=== PATIENT | male | born 1940 | race Caucasian/White ===

== ENCOUNTER 2016-10-27 12:23 | Inpatient (IN) | payer MEDICARE, BC, OTHER ==
[2016-10-27] MEDS ORDERED: HYDROmorphone 1 MG/ML Syringe IM ONE (12:57)
--- NOTE | 2016-10-27 13:06 | EDM.PDOC ---
ED HPI GENERAL MEDICAL PROBLEM - General Chief Complaint: Upper Extremity Injury/Pain Stated Complaint: Right hand pain Time Seen by Provider: 10/27/16 12:45 Source of Information: Reports: Patient, RN Notes Reviewed History Limitations: Reports: No Limitations - History of Present Illness INITIAL COMMENTS - FREE TEXT/NARRATIVE: 75 year old male presents to the ED today with complaints of 2-3 day history of red, swollen, painful right hand. The symptoms came on suddenly after doing yard work. He denies fall or injury to the hand. He denies any skin lacerations or wounds. He denies fever or chills. He is reluctant to move his right shoulder or elbow due to the pain in the hand. He denies pain to the shoulder, elbow, or forearm. He is able to move his fingers but it's painful. No numbness or tingling. He has a history of gout and takes allopurinol. I asked if these feels like previous gout flares and he says "I don't know, that usually happens in my feet." The patient was initially evaluated in the clinic by Dr. Mcnamara and sent to the ED for further workup. I did not receive a direct report from Dr. Mcnamara but I'm assuming he was sent here due to the unexplained weakness of the right arm. The patient denies headache, slurred speech, facial droop, confusion, head injury, weakness in right leg, difficult walking. Right Hand Pain Score (Numeric/FACES): 9 - Related Data Allergies Allergy/AdvReac Type Severity Reaction Status Date / Time lisinopril Allergy Anaphylactic Verified 10/27/16 12:36 Shock Home Meds: Home Meds Aspirin [Halfprin] 81 mg PO DAILY 10/27/16 [History] Carvedilol [Coreg] 18.75 mg PO BID 10/27/16 [History] Fish Oil/[place]-3 Fatty Acids [Fish Oil 1,000 MG] 1,000 mg PO DAILY 10/27/16 [ History] Hydrochlorothiazide 25 mg PO DAILY 10/27/16 [History] L.acidoph,Paracasei, B.lactis [Probiotic] 1 each PO DAILY 10/27/16 [History] Losartan [Cozaar] 100 mg PO DAILY 10/27/16 [History] Multivitamin W-Minerals/Lutein [Vision Plus Lutein Vitamin] 1 each PO DAILY 10/08 [History] Potassium Chloride [Klor-Con M20] 20 meq PO BID 10/27/16 [History] Tamsulosin [Flomax] 0.4 mg PO DAILY 10/27/16 [History] amLODIPine [Norvasc] 10 mg PO DAILY 10/27/16 [History] Past Medical History HEENT History: Reports: Impaired Vision Other HEENT History: glasses Cardiovascular History: Reports: CAD, High Cholesterol, Hypertension Respiratory History: Reports: SOB Gastrointestinal History: Reports: Chronic Constipation Musculoskeletal History: Reports: Osteoarthritis Neurological History: Reports: Other (See Below) Other Neuro History: memory loss Hematologic History: Reports: Anemia, Blood Transfusion(s) - Infectious Disease History Infectious Disease History: Reports: Chicken Pox, Measles, Mumps - Past Surgical History Musculoskeletal Surgical History: Reports: Hip Replacement, Shoulder Replacement Social & Family History - Family History Family Medical History: Noncontributory - Tobacco Use Smoking Status *Q: Former Smoker Years of Tobacco use: 5 Used Tobacco, but Quit: Yes Month Tobacco Last Used: 1996 Second Hand Smoke Exposure: No - Caffeine Use Caffeine Use: Reports: Coffee - Alcohol Use Days Per Week of Alcohol Use: 0 - Recreational Drug Use Recreational Drug Use: No Review of Systems - Review of Systems Review Of Systems: See Below Constitutional: Reports: No Symptoms. Denies: Chills, Fever Respiratory: Reports: No Symptoms. Denies: Shortness of Breath Cardiovascular: Reports: No Symptoms. Denies: Chest Pain GI/Abdominal: Reports: No Symptoms. Denies: Abdominal Pain, Nausea, Vomiting Musculoskeletal: Reports: Hand Pain Neurological: Reports: Weakness. Denies: Confusion, Dizziness, Headache, Numbness, Tingling, Trouble Speaking, Difficulty Walking ED EXAM, GENERAL - Physical Exam Exam: See Below Exam Limited By: No Limitations General Appearance: Alert, WD/WN, No Apparent Distress Eye Exam: Bilateral Eye: EOMI, PERRL Neck: Normal Inspection, Supple, Non-Tender, Full Range of Motion Respiratory/Chest: No Respiratory Distress, Lungs Clear, Normal Breath Sounds Cardiovascular: Regular Rate, Rhythm Extremities: Other Course - Vital Signs Last Recorded V/S: Last Vital Signs Temp 97.5 F 10/27/16 12:33 Pulse 64 10/27/16 12:33 Resp 16 10/27/16 12:33 BP 125/73 10/27/16 12:33 Pulse Ox 94 L 10/27/16 12:33 - Orders/Labs/Meds Orders: Active Orders 24 hr Category Date Time Status Patient Status [ADT] Routine ADT 10/27/16 16:20 Active Peripheral IV Care [RC] . DIRECTED Care 10/27/16 15:41 Active Hand Comp Min 3V Rt [CR] Stat Exams 10/27/16 12:52 Taken Sodium Chloride 0.9% [Saline Flush] Med 10/27/16 15:38 Active 10 ml FLUSH ASDIRECTED PRN Peripheral IV Insertion Adult [OM.PC] Stat Oth 10/27/16 15:38 Ordered Medication Orders Albuterol/Ipratropium (Duoneb 3.0-0.5 Mg/3 Ml) 3 ml NEB Q4H PRN PRN Reason: Shortness Of Breath/wheezing Amlodipine Besylate (Norvasc) 10 mg PO DAILY [facility] Aspirin (Halfprin) 81 mg PO DAILY [facility] Bisacodyl (Dulcolax) 5 mg PO DAILY PRN PRN Reason: Constipation Carvedilol (Coreg) 18.75 mg PO BID [facility] Docusate Sodium (Colace) 100 mg PO BID PRN PRN Reason: Constipation Famotidine (Pepcid) 20 mg IVPUSH BID [facility] Fish Oil (Fish Oil) 1 gm PO DAILY [facility] Hydralazine HCl (Apresoline) 20 mg IVPUSH Q4H PRN PRN Reason: Hypertension Hydromorphone HCl (Dilaudid) 0.25 mg IVPUSH Q2H PRN PRN Reason: Pain (severe 7-10) Promethazine HCl 12.5 mg/ (Sodium Chloride) 50.5 mls @ 100 mls/hr IV Q6H PRN PRN Reason: Nausea/Vomiting Sodium Chloride (Normal Saline) 1,000 mls @ 100 mls/hr IV ASDIRECTED [facility] Sodium Chloride (Normal Saline) 250 mls @ 999 mls/hr IV .BOLUS [facility] Ceftriaxone Sodium 2 gm/ (Sodium Chloride) 100 mls @ 200 mls/hr IV Q24H [facility] Indomethacin (Indocin) 25 mg PO TIDMEALS [facility] Lorazepam (Ativan) 0.5 mg IV Q6H PRN PRN Reason: Anxiety Losartan Potassium (Cozaar) 100 mg PO DAILY [facility] Magnesium Sulfate (Pharmacy To Dose - Magnesium Replacement) 1 dose .XX ASDIRECTED [facility] Metoprolol Tartrate (Lopressor) 5 mg IVPUSH Q4H PRN PRN Reason: Tachycardia Non-Formulary Medication (L.Acidoph,Paracasei, B.Lactis [Probiotic]) 1 each PO DAILY [facility] Non-Formulary Medication (Multivitamin W-Minerals/Lutein [Vision Plus Lutein Vitamin]) 1 each PO DAILY [facility] Ondansetron HCl (Zofran) 4 mg IV Q6H PRN PRN Reason: Nausea/Vomiting Polyethylene Glycol (Miralax) 17 gm PO DAILY PRN PRN Reason: Constipation Potassium Chloride (Pharmacy To Dose - Potassium Replacement) 1 dose .XX ASDIRECTED [facility] Potassium Chloride (Klor-Con M20) 20 meq PO BID [facility] Prednisone (Prednisone) 40 mg PO WITHBREAKFAST [facility] Senna/Docusate Sodium (Senna Plus) 1 tab PO BID PRN PRN Reason: Constipation Sodium Chloride (Saline Flush) 10 ml FLUSH ASDIRECTED PRN PRN Reason: Keep Vein Open Tamsulosin HCl (Flomax) 0.4 mg PO DAILY [facility] Temazepam (Restoril) 15 mg PO BEDTIME PRN PRN Reason: Sleep Labs: Laboratory Tests 10/27/16 10/27/16 10/27/16 Range/Units 13:25 13:25 13:25 WBC 9.91 H (4.23-9.07) K/mm3 RBC 4.00 L (4.63-6.08) M/mm3 Hgb 12.5 L (13.7-17.5) gm/L Hct 36.1 L (40.1-51.0) % MCV 90.3 (79.0-92.2) fl MCH 31.3 (25.7-32.2) pg MCHC 34.6 (32.2-35.5) g/dl RDW Std Deviation 40.9 (35.1-43.9) fL Plt Count 172 (163-337) K/mm3 MPV 9.8 (9.4-12.3) fl Neut % (Auto) 71.7 H (34.0-67.9) % Lymph % (Auto) 10.3 L (21.8-53.1) % [place] % (Auto) 17.3 H (5.3-12.2) % Eos % (Auto) 0.2 L (0.8-7.0) Baso % (Auto) 0.1 (0.1-1.2) % Neut # (Auto) 7.11 H (1.78-5.38) K/mm3 Lymph # (Auto) 1.02 L (1.32-3.57) K/mm3 [place] # (Auto) 1.71 H (0.30-0.82) K/mm3 Eos # (Auto) 0.02 L (0.04-0.54) K/mm3 Baso # (Auto) 0.01 (0.01-0.08) K/mm3 Manual Slide Review Normal smear ESR 106 H (0-15) mm/hr Sodium 139 (136-145) mEq/L Potassium 3.1 L (3.5-5.1) mEq/L Chloride 103 (98-107) mEq/L Carbon Dioxide 24 (21-32) mEq/L Anion Gap 15.1 H (5-15) BUN 34 H (7-18) mg/dL Creatinine 1.8 H (0.7-1.3) mg/dL Est Cr Clr Drug Dosing 38.32 mL/min Estimated GFR (MDRD) 37 (>60) mL/min BUN/Creatinine Ratio 18.9 H (14-18) Glucose 139 H (83-115) mg/dL Uric Acid (3.5-7.2) mg/dL Calcium 9.1 (8.5-10.1) mg/dL Total Bilirubin 1.1 H (0.2-1.0) mg/dL AST 12 L (15-37) U/L ALT 14 L (16-63) U/L Alkaline Phosphatase 51 (46-116) U/L C-Reactive Protein 14.4 H* (<1.0) mg/dL Total Protein 7.5 (6.4-8.2) g/dl Albumin 3.2 L (3.4-5.0) g/dl Globulin 4.3 gm/dL Albumin/Globulin Ratio 0.7 L (1-2) 10/27/16 Range/Units 13:25 WBC (4.23-9.07) K/mm3 RBC (4.63-6.08) M/mm3 Hgb (13.7-17.5) gm/L Hct (40.1-51.0) % MCV (79.0-92.2) fl MCH (25.7-32.2) pg MCHC (32.2-35.5) g/dl RDW Std Deviation (35.1-43.9) fL Plt Count (163-337) K/mm3 MPV (9.4-12.3) fl Neut % (Auto) (34.0-67.9) % Lymph % (Auto) (21.8-53.1) % [place] % (Auto) (5.3-12.2) % Eos % (Auto) (0.8-7.0) Baso % (Auto) (0.1-1.2) % Neut # (Auto) (1.78-5.38) K/mm3 Lymph # (Auto) (1.32-3.57) K/mm3 [place] # (Auto) (0.30-0.82) K/mm3 Eos # (Auto) (0.04-0.54) K/mm3 Baso # (Auto) (0.01-0.08) K/mm3 Manual Slide Review ESR (0-15) mm/hr Sodium (136-145) mEq/L Potassium (3.5-5.1) mEq/L Chloride (98-107) mEq/L Carbon Dioxide (21-32) mEq/L Anion Gap (5-15) BUN (7-18) mg/dL Creatinine (0.7-1.3) mg/dL Est Cr Clr Drug Dosing mL/min Estimated GFR (MDRD) (>60) mL/min BUN/Creatinine Ratio (14-18) Glucose (83-115) mg/dL Uric Acid 7.5 H (3.5-7.2) mg/dL Calcium (8.5-10.1) mg/dL Total Bilirubin (0.2-1.0) mg/dL AST (15-37) U/L ALT (16-63) U/L Alkaline Phosphatase (46-116) U/L C-Reactive Protein (<1.0) mg/dL Total Protein (6.4-8.2) g/dl Albumin (3.4-5.0) g/dl Globulin gm/dL Albumin/Globulin Ratio (1-2) Meds: Medications Generic Name Dose Route Start Last Admin Trade Name Freq PRN Reason Stop Dose Admin Albuterol/Ipratropium 3 ml 10/27/16 17:16 Duoneb 3.0-0.5 Mg/3 Ml NEB Q4H PRN Shortness Of Breath/wheezing Amlodipine Besylate 10 mg 10/28/16 09:00 Norvasc PO DAILY [facility] Aspirin 81 mg 10/28/16 09:00 Halfprin PO DAILY [facility] Bisacodyl 5 mg 10/27/16 17:16 Dulcolax PO DAILY PRN Constipation Carvedilol 18.75 mg 10/27/16 21:00 Coreg PO BID [facility] Docusate Sodium 100 mg 10/27/16 17:16 Colace PO BID PRN Constipation Famotidine 20 mg 10/27/16 21:00 Pepcid IVPUSH BID [facility] Fish Oil 1 gm 10/28/16 09:00 Fish Oil PO DAILY [facility] Hydralazine HCl 20 mg 10/27/16 17:26 Apresoline IVPUSH Q4H PRN Hypertension Hydromorphone HCl 0.25 mg 10/27/16 17:16 Dilaudid IVPUSH Q2H PRN Pain (severe 7-10) Promethazine HCl 12.5 mg/ 50.5 mls @ 100 mls/hr 10/27/16 17:16 Sodium Chloride IV Q6H PRN Nausea/Vomiting Sodium Chloride 1,000 mls @ 100 mls/hr 10/27/16 17:30 Normal Saline IV ASDIRECTED [facility] Sodium Chloride 250 mls @ 999 mls/hr 10/27/16 17:30 Normal Saline IV .BOLUS [facility] Ceftriaxone Sodium 2 gm/ 100 mls @ 200 mls/hr 10/28/16 14:00 Sodium Chloride IV Q24H [facility] Indomethacin 25 mg 10/28/16 07:00 Indocin PO TIDMEALS [facility] Lorazepam 0.5 mg 10/27/16 17:16 Ativan IV Q6H PRN Anxiety Losartan Potassium 100 mg 10/28/16 09:00 Cozaar PO DAILY [facility] Magnesium Sulfate 1 dose 10/27/16 17:30 Pharmacy To Dose - Magnesium Replacement .XX ASDIRECTED [facility] Metoprolol Tartrate 5 mg 10/27/16 17:26 Lopressor IVPUSH Q4H PRN Tachycardia Non-Formulary Medication 1 each 10/28/16 09:00 L.Acidoph,Paracasei, B.Lactis [Probiotic] PO DAILY [facility] Non-Formulary Medication 1 each 10/28/16 09:00 Multivitamin W-Minerals/Lutein [Vision Plus Lutein Vitamin] PO DAILY [facility] Ondansetron HCl 4 mg 10/27/16 17:16 Zofran IV Q6H PRN Nausea/Vomiting Polyethylene Glycol 17 gm 10/27/16 17:16 Miralax PO DAILY PRN Constipation Potassium Chloride 1 dose 10/27/16 17:30 Pharmacy To Dose - Potassium Replacement .XX ASDIRECTED [facility] Potassium Chloride 20 meq 10/27/16 21:00 Klor-Con M20 PO BID [facility] Prednisone 40 mg 10/28/16 07:00 Prednisone PO WITHBREAKFAST [facility] Senna/Docusate Sodium 1 tab 10/27/16 17:16 Senna Plus PO BID PRN Constipation Sodium Chloride 10 ml 10/27/16 15:38 Saline Flush FLUSH ASDIRECTED PRN Keep Vein Open Tamsulosin HCl 0.4 mg 10/28/16 09:00 Flomax PO DAILY [facility] Temazepam 15 mg 10/27/16 17:16 Restoril PO BEDTIME PRN Sleep Discontinued Medications Generic Name Dose Route Start Last Admin Trade Name Freq PRN Reason Stop Dose Admin Ceftriaxone Sodium 1 gm 10/27/16 14:21 10/27/16 14:30 Rocephin IM 10/27/16 14:22 1 gm ONETIME ONE Administration Colchicine 1.2 mg 10/27/16 17:10 Colcrys PO 10/27/16 17:11 ONETIME ONE Hydromorphone HCl 0.5 mg 10/27/16 12:57 10/27/16 13:30 Dilaudid IM 10/27/16 12:58 0.5 mg ONETIME ONE Administration Potassium Chloride 40 meq 10/27/16 17:28 Klor-Con M20 PO 10/27/16 17:29 ONETIME ONE - Re-Assessments/Exams Free Text/Narrative Re-Assessment/Exam: On initial exam, the patient had significant pain to the wrist/hand area. The area was hot and red. He was reluctant to move his right arm. There is weakness to the right arm but the patient attributes this to pain. He has no other neurologic deficits on a thorough neuro exam. His pain was treated with Dilaudid. I then repeated his neuro exam. Had improved movement of the right shoulder and elbow after pain medication, making central neurologic etiology unlikely. Therefore, CT of head is not indicated at this time. X-ray of right hand is negative for bony abnormality. CBC reveals a mildly elevated WBC. CRP is 14 and ESR 106. Differential diagnosis includes gout, cellulitis, transient synovitis. He has no skin wounds to suggest cellulitis. The patient has a history of gout. Current medications were verified with his pharmacy and he is no longer taking Allopurinol. Discussed with Dr. Stovall who recommends consulting Dr. Alvarez. I phoned Dr. Alvarez who recommended Indocin 75mg PO ER QD, Rocephin 1 gram now , Keflex 500mg q6h starting tomorrow morning, volar splint, warm soaks 3 times a day, and elevation. He would like to see the patient in f/u on Monday. After discussing this with the patient, I have concerns that the patient will fail outpatient treatment. He has no family or friends available to help. He will be unable to remove and reapply the splint by himself. He has severe pain that will likely require IV pain medication. I also feel he would benefit from IV antibiotics and close monitoring for the next 2-3 days. I discussed the case with our caser up who also agrees. I spoke to Dr. Strong who has accepted care of the patient for inpatient admission. I called and updated Dr. Alvarez who has agreed to see the patient in consult. Departure - Departure Time of Disposition: 16:20 Disposition: Admitted As Inpatient 65 Condition: Good Clinical Impression: Joint inflammation of right hand and wrist - Discharge Information - My Orders Last 24 Hours: My Active Orders 10/27/16 12:52 Hand Comp Min 3V Rt [CR] Stat 10/27/16 15:38 Sodium Chloride 0.9% [Saline Flush] 10 ml FLUSH ASDIRECTED PRN Peripheral IV Insertion Adult [OM.PC] Stat 10/27/16 15:41 Peripheral IV Care [RC] . DIRECTED 10/27/16 16:20 Patient Status [ADT] Routine - Assessment/Plan Last 24 Hours: My Active Orders 10/27/16 12:52 Hand Comp Min 3V Rt [CR] Stat 10/27/16 15:38 Sodium Chloride 0.9% [Saline Flush] 10 ml FLUSH ASDIRECTED PRN Peripheral IV Insertion Adult [OM.PC] Stat 10/27/16 15:41 Peripheral IV Care [RC] . DIRECTED 10/27/16 16:20 Patient Status [ADT] Routine
[2016-10-27] MEDS ORDERED: cefTRIAXone 1 GM Vial IM ONE (14:21)
[2016-10-27] MEDS ORDERED: Sodium Chloride 0.9% 10 ML Syringe FLUSH PRN (15:38)
--- NOTE | 2016-10-27 17:04 | PCM.HP ---
H&P History of Present Illness - General Date of Service: 10/27/16 Admit Problem/Dx: Admission Diagnosis/Problem Admission Diagnosis/Problem Cellulitis Source of Information: Patient, Old Records, Provider, RN Notes Reviewed History Limitations: Reports: Physical Impairment - History of Present Illness Initial Comments - Free Text/Narative: This is a 75-year-old white male with past medical history of impaired vision, hyperlipidemia, hypertension, coronary artery disease, chronic shortness of breath, chronic constipation, memory loss and anemia who presents to the emergency department with complaints of 2-3 day history of red, swollen and painful right hand. His symptoms started after doing some yard work. He denies any trauma or injury. He denies any systemic symptoms. His range of motion is limited due to pain with movement. He denies any numbness or tingling but admits to some weakness. Patient carries a history of gout. He used to be on allopurinol but is no longer on maintenance medication. Patient denies any other associated complaints. His initial workup in the emergency department shows a CBC remarkable for WBC of 9.91, RBC of 4, hemoglobin 12.5, hematocrit of 36.1, neutrophils counts of 7.11, and ESR of 106. His chemistry is remarkable for potassium of 3.1. His chest x-ray shows arthritic changes. Patient is being admitted for acute gout and SSTI. He is full code. Right Hand Pain Score (Numeric/FACES): 9 - Related Data Allergies/Adverse Reactions: Allergies Allergy/AdvReac Type Severity Reaction Status Date / Time lisinopril Allergy Anaphylactic Verified 10/27/16 12:36 Shock Home Medications: Home Meds Aspirin [Halfprin] 81 mg PO DAILY 10/27/16 [History] Carvedilol [Coreg] 18.75 mg PO BID 10/27/16 [History] Fish Oil/[place]-3 Fatty Acids [Fish Oil 1,000 MG] 1,000 mg PO DAILY 10/27/16 [ History] Hydrochlorothiazide 25 mg PO DAILY 10/27/16 [History] L.acidoph,Paracasei, B.lactis [Probiotic] 1 each PO DAILY 10/27/16 [History] Losartan [Cozaar] 100 mg PO DAILY 10/27/16 [History] Multivitamin W-Minerals/Lutein [Vision Plus Lutein Vitamin] 1 each PO DAILY 10/08 [History] Potassium Chloride [Klor-Con M20] 20 meq PO BID 10/27/16 [History] Tamsulosin [Flomax] 0.4 mg PO DAILY 10/27/16 [History] amLODIPine [Norvasc] 10 mg PO DAILY 10/27/16 [History] Past Medical History HEENT History: Reports: Impaired Vision Other HEENT History: glasses Cardiovascular History: Reports: CAD, High Cholesterol, Hypertension Respiratory History: Reports: SOB Gastrointestinal History: Reports: Chronic Constipation Musculoskeletal History: Reports: Osteoarthritis Neurological History: Reports: Other (See Below) Other Neuro History: memory loss Hematologic History: Reports: Anemia, Blood Transfusion(s) - Infectious Disease History Infectious Disease History: Reports: Chicken Pox, Measles, Mumps - Past Surgical History Musculoskeletal Surgical History: Reports: Hip Replacement, Shoulder Replacement Social & Family History - Family History Family Medical History: Noncontributory - Tobacco Use Smoking Status *Q: Former Smoker Years of Tobacco use: 5 Used Tobacco, but Quit: Yes Month Tobacco Last Used: 1996 Second Hand Smoke Exposure: No - Caffeine Use Caffeine Use: Reports: Coffee - Alcohol Use Days Per Week of Alcohol Use: 0 - Recreational Drug Use Recreational Drug Use: No H&P Review of Systems - Review of Systems: Review Of Systems: See Below General: Reports: Weakness. Denies: Fever, Chills, Malaise HEENT: Reports: No Symptoms Pulmonary: Denies: Shortness of Breath Cardiovascular: Denies: Chest Pain Gastrointestinal: Denies: Abdominal Pain, Diarrhea, Nausea, Vomiting Genitourinary: Reports: No Symptoms Musculoskeletal: Reports: Hand Pain, Joint Pain, Other (Edema ) Skin: Reports: Erythema, Change in Color Psychiatric: Denies: Depression, Anxiety, Agitation, Hallucinations Neurological: Reports: Weakness. Denies: Confusion, Difficulty Walking, Gait Disturbance Hematologic/Lymphatic: Reports: No Symptoms Immunologic: Reports: No Symptoms Exam - Exam Exam: See Below - Vital Signs Vital Signs: Last Vital Signs Temp 36.4 C 10/27/16 12:33 Pulse 64 10/27/16 12:33 Resp 16 10/27/16 12:33 BP 125/73 10/27/16 12:33 Pulse Ox 94 L 10/27/16 12:33 Weight: 96.162 kg - Exam General: Alert, Oriented, Cooperative. No: Mild Distress HEENT: Conjunctiva Clear, EACs Clear, EOMI, Hearing Intact, Mucosa Moist & [place] , Nares Patent, Normal Nasal Septum, Posterior Pharynx Clear, Pupils Equal, Pupils Reactive Neck: Supple, Trachea Midline, +2 Carotid Pulse wo Bruit Lungs: Clear to Auscultation, Normal Respiratory Effort Cardiovascular: Regular Rate, Regular Rhythm Abdomen: Normal Bowel Sounds, Soft. No: Organomegaly, Tenderness (Male) Exam: Deferred Rectal (Males) Exam: Deferred Back Exam: Normal Inspection, Decreased Range of Motion Extremities: Normal Inspection, Normal Pulses, Edema (right hand: mild erythema) , Increased Warmth (right hand) Skin: Warm, Dry, Intact. No: Wound Skin Alteration Location (Drawings Not To Scale): 1 - mild erythema, mild edema, and pain on touch 2 - mild erythema, mild edema, and pain on touch Neuro Extensive - Mental Status: Oriented x3, Normal Cognition, Memory Intact Neuro Extensive - Motor, Sensory, Reflexes: CN II-XII Intact, Normal Gait Psychiatric: Alert, Normal Affect, Normal Mood - Patient Data Result Diagrams: 10/27/16 13:25 10/27/16 13:25 *Q Meaningful Use (ADM) - VTE *Q VTE Criteria *Q: - Stroke *Q Stroke Criteria *Q: - AMI *Q AMI Criteria *Q: Problem List Initiated/Reviewed/Updated: Yes Orders Last 24hrs: Medication Orders Sodium Chloride (Saline Flush) 10 ml FLUSH ASDIRECTED PRN PRN Reason: Keep Vein Open Assessment/Plan Comment:: Assessment/Plan: Acute: Gout Attack: Right Hand - Had hx/o Gout he is not on maintenance medication - Risk factor: HCTZ (competes with Uric Acid for excretion) - Uric Acid level 7.5 - Indomethacin 25 mg po TID and Prednisone 40 mg po daily for 3 days then taper dose for 2 weeks - Famotidine 20 mg IVP BID - Dietary consult for gout diet SSTI/Cellulitis? - I felt it was more inflammatory in nature than infectious - Right Hand: joint and wrist - Received IV Rocephin in ED - Continue IV Abx - Ortho consulted in ED: Dr. Alvarez recommends the followin) Cephalexin (Keflex) 500mg every 6 hours starts tomorrow morning, 2) Indocin 75mg once a day for the next 7 days, start today, 3) Tramadol 1 tab every 6 hours as needed for pain, 3) Warm soapy water soaks 3 times a day for 45 minutes at a time, 4) Wear splint at all times, only remove splint for warm soaks then immediately reapply, 5) Elevate as much as possible to help with the swelling. Leukocytosis - WBC 9.91, ESR 106, CRP 14.4 - 2/2 above Hypokalemia - K 3.1 - Will replete and monitor Chronic: HTN HLD CAD SOB CKD Stage 3, At baseline with current GFR level Constipation OA Memory Loss Anemia Gout Plan: Admit to Med-Surg Routine AM Labs Ortho consult Resume Home Meds PT/OT consult Gout Diet SW/CM for d/c planning Code status: 1
[2016-10-27] MEDS ORDERED: Colchicine 0.6 MG Tab PO ONE (17:10)
[2016-10-27] MEDS ORDERED: Promethazine 12.5 MG in Sodium Chloride 0.9% 50 ML IV PRN (17:16)
[2016-10-27] MEDS ORDERED: Albuterol/Ipratropium 3.0-0.5 MG/3 ML Neb Soln NEB PRN (17:16)
[2016-10-27] MEDS ORDERED: Ondansetron 4 MG/2 ML SDV IV PRN (17:16)
[2016-10-27] MEDS ORDERED: LORazepam 2 MG/ML MDV IV PRN (17:16)
[2016-10-27] MEDS ORDERED: Docusate Sodium 100 MG Cap PO PRN (17:16)
[2016-10-27] MEDS ORDERED: Bisacodyl 5 MG Tab PO PRN (17:16)
[2016-10-27] MEDS ORDERED: Metoprolol Tartrate 5 MG/5 ML SDV IVPUSH PRN (17:26)
[2016-10-27] MEDS ORDERED: hydrALAZINE 20 MG/ML SDV IVPUSH PRN (17:26)
[2016-10-27] MEDS ORDERED: Potassium Chloride 20 MEQ Tab.ER PO ONE (17:28)
[2016-10-27] MEDS ORDERED: Sodium Chloride 0.9% 250 ML IV SCH (17:30)
[2016-10-27] MEDS: Sodium Chloride 0.9% 1,000 ML IV SCH (18:25)
[2016-10-27] MEDS: HYDROmorphone 1 MG/ML Syringe IVPUSH PRN ×2 (18:27→23:28)
[2016-10-27] MEDS: Famotidine 20 MG/2 ML SDV IVPUSH SCH (20:51)
[2016-10-27] MEDS: Carvedilol 6.25 MG Tab PO SCH (20:51)
[2016-10-27] MEDS: Potassium Chloride 20 MEQ Tab.ER PO SCH (20:52)
[2016-10-27] MEDS: traMADol 50 MG Tab PO PRN (20:52)
[2016-10-27] MEDS: Polyethylene Glycol 3350 Powder 17 GM Packet PO PRN (21:00)
[2016-10-27] MEDS ORDERED: Pneumococcal Polyvalent-23 Vaccine 0.5 ML SDV IM ONE (21:05)
[2016-10-28] MEDS: Sodium Chloride 0.9% 1,000 ML IV SCH ×2 (02:10→17:52)
[2016-10-28] MEDS: traMADol 50 MG Tab PO PRN (04:13)
[2016-10-28] MEDS: Indomethacin 25 MG Cap PO SCH ×2 (06:33→11:12)
--- NOTE | 2016-10-28 07:02 | CR ---
Right hand: Four views of the right hand were obtained. Comparison: No previous hand exam. Mild joint space narrowing is seen within the third MCP joint. Mild degenerative change is scattered within the DIP joints. Slight chondrocalcinosis is noted within the triangular fibrocartilage. No acute fracture or other bony abnormality is seen. Mild vascular calcification is identified within the wrist. Impression: 1. Mild degenerative change, minimal chondrocalcinosis, mild vascular calcification. 2. Nothing acute is appreciated on right hand study. Diagnostic code #3
[2016-10-28] MEDS ORDERED: predniSONE 20 MG Tab PO SCH (08:00)
[2016-10-28] MEDS: Aspirin 81 MG Tab.EC PO SCH (08:01)
[2016-10-28] MEDS: Fish Oil/Omega-3 Fatty Acids 1 Gm Cap PO SCH (08:01)
[2016-10-28] MEDS: amLODIPine 10 MG Tab PO SCH (08:01)
[2016-10-28] MEDS: Tamsulosin 0.4 MG Cap.ER PO SCH (08:02)
[2016-10-28] MEDS: Carvedilol 6.25 MG Tab PO SCH ×2 (08:02→21:16)
[2016-10-28] MEDS: Potassium Chloride 20 MEQ Tab.ER PO SCH ×4 (08:02→21:15)
[2016-10-28] MEDS: Multivitamins with Minerals/Folic Acid/Lutein/Zeaxanth Tab PO SCH (08:02)
[2016-10-28] MEDS: Saccharomyces Boulardii (Probiotic) 250 MG Cap PO SCH (08:02)
[2016-10-28] MEDS ORDERED: Magnesium Oxide 400 MG Tab PO ONE (08:30)
[2016-10-28] MEDS ORDERED: Losartan 100 MG Tab PO SCH (09:00)
[2016-10-28] MEDS: Famotidine 20 MG/2 ML SDV IVPUSH SCH ×2 (11:35→21:19)
[2016-10-28] MEDS: methylPREDNISolone Sodium Succinate 125 MG/2 ML SDV IVPUSH SCH (11:36)
--- NOTE | 2016-10-28 11:38 | PCM.PN ---
- General Info Date of Service: 10/28/16 Functional Status: Reports: pain controlled, tolerating diet, ambulating, urinating - Review of Systems General: Reports: No Symptoms HEENT: Reports: no symptoms Pulmonary: Reports: no symptoms Cardiovascular: Reports: No Symptoms Gastrointestinal: Reports: No symptoms Genitourinary: Reports: no symptoms Musculoskeletal: Reports: hand pain (right) Skin: Reports: no symptoms Neurological: Reports: No Symptoms Psychiatric: Reports: no symptoms - Patient Data Vitals - most recent: Last Vital Signs Temp 36.2 C 10/28/16 07:44 Pulse 55 L 10/28/16 08:02 Resp 16 10/28/16 07:44 BP 139/78 10/28/16 08:02 Pulse Ox 93 L 10/28/16 07:44 Weight - most recent: 95.572 kg I&O - last 24 hours: Intake & Output 10/27/16 10/28/16 10/28/16 22:59 06:59 14:59 Intake Total 420 1706 Output Total 400 400 Balance 20 1306 Lab Results last 24 hrs: Laboratory Results - last 24 hr 10/28/16 10/28/16 10/28/16 Range/Units 05:40 05:40 05:40 WBC 7.73 (4.23-9.07) K/mm3 RBC 3.57 L (4.63-6.08) M/mm3 Hgb 11.1 L (13.7-17.5) gm/L Hct 32.5 L (40.1-51.0) % MCV 91.0 (79.0-92.2) fl MCH 31.1 (25.7-32.2) pg MCHC 34.2 (32.2-35.5) g/dl RDW Std Deviation 40.1 (35.1-43.9) fL Plt Count 164 (163-337) K/mm3 MPV 9.9 (9.4-12.3) fl Neut % (Auto) 65.7 (34.0-67.9) % Lymph % (Auto) 16.2 L (21.8-53.1) % Grady % (Auto) 17.1 H (5.3-12.2) % Eos % (Auto) 0.5 L (0.8-7.0) Baso % (Auto) 0.1 (0.1-1.2) % Neut # (Auto) 5.08 (1.78-5.38) K/mm3 Lymph # (Auto) 1.25 L (1.32-3.57) K/mm3 Grady # (Auto) 1.32 H (0.30-0.82) K/mm3 Eos # (Auto) 0.04 (0.04-0.54) K/mm3 Baso # (Auto) 0.01 (0.01-0.08) K/mm3 Manual Slide Review Normal smear ESR 98 H (0-15) mm/hr Sodium 137 (136-145) mEq/L Potassium 3.4 L (3.5-5.1) mEq/L Chloride 104 (98-107) mEq/L Carbon Dioxide 24 (21-32) mEq/L Anion Gap 12.4 (5-15) BUN 29 H (7-18) mg/dL Creatinine 1.3 (0.7-1.3) mg/dL Est Cr Clr Drug Dosing 54.63 mL/min Estimated GFR (MDRD) 54 (>60) mL/min BUN/Creatinine Ratio 22.3 H (14-18) Glucose 126 H (83-115) mg/dL Uric Acid 6.8 (3.5-7.2) mg/dL Calcium 8.3 L (8.5-10.1) mg/dL Magnesium 1.7 L (1.8-2.4) mg/dl C-Reactive Protein 15.3 H* (<1.0) mg/dL Med Orders - Current: Current Medications Albuterol/Ipratropium (Duoneb 3.0-0.5 Mg/3 Ml) 3 ml NEB Q4H PRN PRN Reason: Shortness Of Breath/wheezing Amlodipine Besylate (Norvasc) 10 mg PO DAILY [facility] Last Admin: 10/28/16 08:01 Dose: 10 mg Aspirin (Halfprin) 81 mg PO DAILY [facility] Last Admin: 10/28/16 08:01 Dose: 81 mg Bisacodyl (Dulcolax) 5 mg PO DAILY PRN PRN Reason: Constipation Carvedilol (Coreg) 18.75 mg PO BID [facility] Last Admin: 10/28/16 08:02 Dose: 18.75 mg Docusate Sodium (Colace) 100 mg PO BID PRN PRN Reason: Constipation Last Admin: 10/27/16 18:26 Dose: 100 mg Famotidine (Pepcid) 20 mg IVPUSH BID [facility] Last Admin: 10/27/16 20:51 Dose: 20 mg Fish Oil (Fish Oil) 1 gm PO DAILY [facility] Last Admin: 10/28/16 08:01 Dose: 1 gm Hydralazine HCl (Apresoline) 20 mg IVPUSH Q4H PRN PRN Reason: Hypertension Hydromorphone HCl (Dilaudid) 0.25 mg IVPUSH Q2H PRN PRN Reason: Pain (severe 7-10) Last Admin: 10/27/16 23:28 Dose: 0.25 mg Promethazine HCl 12.5 mg/ (Sodium Chloride) 50.5 mls @ 100 mls/hr IV Q6H PRN PRN Reason: Nausea/Vomiting Sodium Chloride (Normal Saline) 1,000 mls @ 100 mls/hr IV ASDIRECTED [facility] Last Admin: 10/28/16 02:10 Dose: 100 mls/hr Ceftriaxone Sodium 2 gm/ (Sodium Chloride) 100 mls @ 200 mls/hr IV Q24H [facility] Lorazepam (Ativan) 0.5 mg IV Q6H PRN PRN Reason: Anxiety Losartan Potassium (Cozaar) 100 mg PO DAILY [facility] Last Admin: 10/28/16 08:01 Dose: 100 mg Magnesium Sulfate (Pharmacy To Dose - Magnesium Replacement) 1 dose .XX ASDIRECTED [facility] Methylprednisolone Sodium Succinate (Solu-Medrol) 80 mg IVPUSH Q12H [facility] Stop: 10/28/16 23:31 Metoprolol Tartrate (Lopressor) 5 mg IVPUSH Q4H PRN PRN Reason: Tachycardia Ondansetron HCl (Zofran) 4 mg IV Q6H PRN PRN Reason: Nausea/Vomiting Polyethylene Glycol (Miralax) 17 gm PO DAILY PRN PRN Reason: Constipation Last Admin: 10/27/16 21:00 Dose: 17 gm Potassium Chloride (Pharmacy To Dose - Potassium Replacement) 1 dose .XX ASDIRECTED [facility] Potassium Chloride (Klor-Con M20) 20 meq PO BID [facility] Last Admin: 10/28/16 08:02 Dose: 20 meq Potassium Chloride (Klor-Con M20) 40 meq PO Q4H [facility] Stop: 10/28/16 12:16 Last Admin: 10/28/16 11:13 Dose: 40 meq Prednisone (Prednisone) 30 mg PO WITHBREAKFAST [facility] Stop: 11/03/16 07:01 Prednisone (Prednisone) 20 mg PO WITHBREAKFAST [facility] Stop: 11/06/16 07:01 Prednisone (Prednisone) 10 mg PO WITHBREAKFAST [facility] Stop: 11/09/16 07:01 Prednisone (Prednisone) 40 mg PO WITHBREAKFAST [facility] Stop: 10/31/16 07:01 Saccharomyces Boulardii (Florastor) 250 mg PO DAILY [facility] Last Admin: 10/28/16 08:02 Dose: 250 mg Senna/Docusate Sodium (Senna Plus) 1 tab PO BID PRN PRN Reason: Constipation Sodium Chloride (Saline Flush) 10 ml FLUSH ASDIRECTED PRN PRN Reason: Keep Vein Open Tamsulosin HCl (Flomax) 0.4 mg PO DAILY [facility] Last Admin: 10/28/16 08:02 Dose: 0.4 mg Temazepam (Restoril) 15 mg PO BEDTIME PRN PRN Reason: Sleep Tramadol HCl (Ultram) 100 mg PO Q6H PRN PRN Reason: Pain Last Admin: 10/28/16 04:13 Dose: 100 mg Vit A/Vit C/Vit E/Selen/Cu/Zn/Lutei (Icaps Mv) 1 tab PO DAILY [facility] Last Admin: 10/28/16 08:02 Dose: 1 tab Discontinued Medications Ceftriaxone Sodium (Rocephin) 1 gm IM ONETIME ONE Stop: 10/27/16 14:22 Last Admin: 10/27/16 14:30 Dose: 1 gm Colchicine (Colcrys) 1.2 mg PO ONETIME ONE Stop: 10/27/16 17:11 Last Admin: 10/27/16 20:12 Dose: Not Given Hydromorphone HCl (Dilaudid) 0.5 mg IM ONETIME ONE Stop: 10/27/16 12:58 Last Admin: 10/27/16 13:30 Dose: 0.5 mg Sodium Chloride (Normal Saline) 250 mls @ 999 mls/hr IV .BOLUS [facility] Last Admin: 10/28/16 01:07 Dose: 999 mls/hr Indomethacin (Indocin) 25 mg PO TIDMEALS [facility] Stop: 11/03/16 17:01 Last Admin: 10/28/16 11:12 Dose: 25 mg Magnesium Oxide (Magnesium Oxide) 400 mg PO ONETIME ONE Stop: 10/28/16 08:31 Last Admin: 10/28/16 11:13 Dose: 400 mg Pneumococcal Polyvalent Vaccine (Pneumovax 23) 0.5 ml IM .ONCE ONE Stop: 10/27/16 21:06 Potassium Chloride (Klor-Con M20) 40 meq PO ONETIME ONE Stop: 10/27/16 17:29 Last Admin: 10/27/16 18:26 Dose: 40 meq Prednisone (Prednisone) 40 mg PO WITHBREAKFAST [facility] Stop: 10/30/16 08:01 - Exam Quality Assessment: supplemental oxygen, DVT prophylaxis General: alert, oriented, cooperative, no acute distress HEENT: Pupils equal, Pupils reactive, EOMI, Mucous membr. moist/pink Neck: supple, trachea midline, no JVD Lungs: Clear to auscultation, Decreased breath sounds Cardiovascular: Regular Rate, Regular Rhythm Abdomen: bowel sounds present, soft, no tenderness, no distension (Male) Exam: Deferred Back Exam: Normal Inspection Extremities: normal pulses, edema, other (tenderness) Skin: warm Wound/Incisions: erythema improving Neurological: no new focal deficit, normal gait Psy/Mental Status: alert, normal affect, normal mood - Problem List Review Problem List Initiated/Reviewed/Updated: Yes - My Orders Last 24 Hours: My Active Orders 10/28/16 11:30 methylPREDNISolone Sod Succ [Solu-MEDROL] 80 mg IVPUSH Q12H - Plan Plan:: Assessment/Plan: Acute: Gout Attack: Right Hand - Had hx/o Gout he is not on maintenance medication - Risk factor: HCTZ (competes with Uric Acid for excretion) - Uric Acid level 7.5 - Indomethacin 25 mg po TID and Prednisone 40 mg po daily for 3 days then taper dose for 2 weeks - Famotidine 20 mg IVP BID - Dietary consult for gout diet SSTI/Cellulitis? - I felt it was more inflammatory in nature than infectious - Right Hand: joint and wrist - Received IV Rocephin in ED - Continue IV Abx - Ortho consulted in ED: Dr. Alvarez recommends the followin) Cephalexin (Keflex) 500mg every 6 hours starts tomorrow morning, 2) Indocin 75mg once a day for the next 7 days, start today, 3) Tramadol 1 tab every 6 hours as needed for pain, 3) Warm soapy water soaks 3 times a day for 45 minutes at a time, 4) Wear splint at all times, only remove splint for warm soaks then immediately reapply, 5) Elevate as much as possible to help with the swelling. Leukocytosis - WBC 9.91, ESR 106, CRP 14.4 - 2/2 above Hypokalemia - K 3.1 - Will replete and monitor Chronic: HTN HLD CAD SOB CKD Stage 3, At baseline with current GFR level Constipation OA Memory Loss Anemia Gout Plan: Admit to Med-Surg Routine AM Labs Ortho consult Resume Home Meds PT/OT consult Gout Diet SW/CM for d/c planning Code status: 1 LOS>96 hours expected with gradual response to therapy
[2016-10-28] MEDS: Colchicine 0.6 MG Tab PO SCH (12:21)
[2016-10-28] MEDS: cefTRIAXone 2 GM in Sodium Chloride 0.9% 100 ML IV SCH (13:54)
[2016-10-28] MEDS ORDERED: Magnesium Sulfate/Water 2 GM in Premix Bag 1 BAG IV ONE (14:47)
[2016-10-28] MEDS: Ketorolac 15 MG/ML SDV IVPUSH SCH (17:51)
[2016-10-29] MEDS: methylPREDNISolone Sodium Succinate 125 MG/2 ML SDV IVPUSH SCH (00:29)
[2016-10-29] MEDS: Ketorolac 15 MG/ML SDV IVPUSH SCH ×2 (00:30→08:39)
[2016-10-29] MEDS: predniSONE 20 MG Tab PO SCH (06:56)
[2016-10-29] MEDS: Polyethylene Glycol 3350 Powder 17 GM Packet PO PRN (06:56)
[2016-10-29] MEDS: Sodium Chloride 0.45% 1,000 ML IV SCH ×2 (06:57→08:39)
[2016-10-29] MEDS: Fish Oil/Omega-3 Fatty Acids 1 Gm Cap PO SCH (08:41)
[2016-10-29] MEDS: Carvedilol 6.25 MG Tab PO SCH ×2 (08:41→20:06)
[2016-10-29] MEDS: Multivitamins with Minerals/Folic Acid/Lutein/Zeaxanth Tab PO SCH (08:41)
[2016-10-29] MEDS: Aspirin 81 MG Tab.EC PO SCH (08:41)
[2016-10-29] MEDS: Saccharomyces Boulardii (Probiotic) 250 MG Cap PO SCH (08:42)
[2016-10-29] MEDS: Potassium Chloride 20 MEQ Tab.ER PO SCH ×2 (08:42→20:07)
[2016-10-29] MEDS: Tamsulosin 0.4 MG Cap.ER PO SCH (08:42)
[2016-10-29] MEDS: Colchicine 0.6 MG Tab PO SCH (08:42)
[2016-10-29] MEDS: amLODIPine 10 MG Tab PO SCH (08:42)
[2016-10-29] MEDS: Famotidine 20 MG/2 ML SDV IVPUSH SCH ×2 (08:43→20:08)
--- NOTE | 2016-10-29 12:08 | PCM.PN ---
- General Info Date of Service: 10/29/16 Functional Status: Reports: pain controlled, tolerating diet, ambulating - Review of Systems General: Reports: No Symptoms HEENT: Reports: no symptoms Pulmonary: Reports: no symptoms Cardiovascular: Reports: No Symptoms Gastrointestinal: Reports: No symptoms Genitourinary: Reports: no symptoms Musculoskeletal: Reports: hand pain (right, improved) Skin: Reports: no symptoms Neurological: Reports: No Symptoms Psychiatric: Reports: no symptoms - Patient Data Vitals - most recent: Last Vital Signs Temp 36.4 C 10/29/16 03:00 Pulse 66 10/29/16 08:41 Resp 16 10/29/16 03:00 BP 142/87 H 10/29/16 08:42 Pulse Ox 0 L 10/29/16 03:00 Weight - most recent: 98.702 kg I&O - last 24 hours: Intake & Output 10/28/16 10/29/16 10/29/16 22:59 06:59 14:59 Intake Total 1513 1475 Output Total 450 900 Balance 1063 575 Lab Results last 24 hrs: Laboratory Results - last 24 hr 10/27/16 10/29/16 10/29/16 Range/Units 20:40 06:30 06:30 WBC 10.28 H (4.23-9.07) K/mm3 RBC 3.70 L (4.63-6.08) M/mm3 Hgb 11.4 L (13.7-17.5) gm/L Hct 32.9 L (40.1-51.0) % MCV 88.9 (79.0-92.2) fl MCH 30.8 (25.7-32.2) pg MCHC 34.7 (32.2-35.5) g/dl RDW Std Deviation 38.6 (35.1-43.9) fL Plt Count 167 (163-337) K/mm3 MPV 10.0 (9.4-12.3) fl Neut % (Auto) 90.6 H (34.0-67.9) % Lymph % (Auto) 4.7 L (21.8-53.1) % Mineral % (Auto) 4.2 L (5.3-12.2) % Eos % (Auto) 0 L (0.8-7.0) Baso % (Auto) 0.1 (0.1-1.2) % Neut # (Auto) 9.32 H (1.78-5.38) K/mm3 Lymph # (Auto) 0.48 L (1.32-3.57) K/mm3 Mineral # (Auto) 0.43 (0.30-0.82) K/mm3 Eos # (Auto) 0.00 L (0.04-0.54) K/mm3 Baso # (Auto) 0.01 (0.01-0.08) K/mm3 Manual Slide Review Not Reportable ESR 116 H (0-15) mm/hr Sodium (136-145) mEq/L Potassium (3.5-5.1) mEq/L Chloride (98-107) mEq/L Carbon Dioxide (21-32) mEq/L Anion Gap (5-15) BUN (7-18) mg/dL Creatinine (0.7-1.3) mg/dL Est Cr Clr Drug Dosing mL/min Estimated GFR (MDRD) (>60) mL/min BUN/Creatinine Ratio (14-18) Glucose (83-115) mg/dL Calcium (8.5-10.1) mg/dL Magnesium (1.8-2.4) mg/dl C-Reactive Protein (<1.0) mg/dL Ur Uric Acid Concent 54.4 mg/dL 10/29/16 Range/Units 06:30 WBC (4.23-9.07) K/mm3 RBC (4.63-6.08) M/mm3 Hgb (13.7-17.5) gm/L Hct (40.1-51.0) % MCV (79.0-92.2) fl MCH (25.7-32.2) pg MCHC (32.2-35.5) g/dl RDW Std Deviation (35.1-43.9) fL Plt Count (163-337) K/mm3 MPV (9.4-12.3) fl Neut % (Auto) (34.0-67.9) % Lymph % (Auto) (21.8-53.1) % Mineral % (Auto) (5.3-12.2) % Eos % (Auto) (0.8-7.0) Baso % (Auto) (0.1-1.2) % Neut # (Auto) (1.78-5.38) K/mm3 Lymph # (Auto) (1.32-3.57) K/mm3 Mineral # (Auto) (0.30-0.82) K/mm3 Eos # (Auto) (0.04-0.54) K/mm3 Baso # (Auto) (0.01-0.08) K/mm3 Manual Slide Review ESR (0-15) mm/hr Sodium 138 (136-145) mEq/L Potassium 3.8 (3.5-5.1) mEq/L Chloride 106 (98-107) mEq/L Carbon Dioxide 18 L (21-32) mEq/L Anion Gap 17.8 H (5-15) BUN 35 H (7-18) mg/dL Creatinine 1.3 (0.7-1.3) mg/dL Est Cr Clr Drug Dosing 54.63 mL/min Estimated GFR (MDRD) 54 (>60) mL/min BUN/Creatinine Ratio 26.9 H (14-18) Glucose 182 H (83-115) mg/dL Calcium 8.7 (8.5-10.1) mg/dL Magnesium 2.5 H (1.8-2.4) mg/dl C-Reactive Protein 11.2 H* (<1.0) mg/dL Ur Uric Acid Concent mg/dL Med Orders - Current: Current Medications Albuterol/Ipratropium (Duoneb 3.0-0.5 Mg/3 Ml) 3 ml NEB Q4H PRN PRN Reason: Shortness Of Breath/wheezing Amlodipine Besylate (Norvasc) 10 mg PO DAILY [facility] Last Admin: 10/29/16 08:42 Dose: 10 mg Aspirin (Halfprin) 81 mg PO DAILY [facility] Last Admin: 10/29/16 08:41 Dose: 81 mg Bisacodyl (Dulcolax) 5 mg PO DAILY PRN PRN Reason: Constipation Last Admin: 10/28/16 17:52 Dose: 5 mg Carvedilol (Coreg) 18.75 mg PO BID [facility] Last Admin: 10/29/16 08:41 Dose: 18.75 mg Colchicine (Colcrys) 0.6 mg PO DAILY [facility] Last Admin: 10/29/16 08:42 Dose: 0.6 mg Docusate Sodium (Colace) 100 mg PO BID PRN PRN Reason: Constipation Last Admin: 10/27/16 18:26 Dose: 100 mg Famotidine (Pepcid) 20 mg IVPUSH BID [facility] Last Admin: 10/29/16 08:43 Dose: 20 mg Fish Oil (Fish Oil) 1 gm PO DAILY [facility] Last Admin: 10/29/16 08:41 Dose: 1 gm Hydralazine HCl (Apresoline) 20 mg IVPUSH Q4H PRN PRN Reason: Hypertension Hydromorphone HCl (Dilaudid) 0.25 mg IVPUSH Q2H PRN PRN Reason: Pain (severe 7-10) Last Admin: 10/27/16 23:28 Dose: 0.25 mg Promethazine HCl 12.5 mg/ (Sodium Chloride) 50.5 mls @ 100 mls/hr IV Q6H PRN PRN Reason: Nausea/Vomiting Sodium Chloride (Normal Saline) 1,000 mls @ 100 mls/hr IV ASDIRECTED [facility] Last Admin: 10/28/16 17:52 Dose: 100 mls/hr Ceftriaxone Sodium 2 gm/ (Sodium Chloride) 100 mls @ 200 mls/hr IV Q24H [facility] Last Admin: 10/28/16 13:54 Dose: 200 mls/hr Sodium Chloride (Sodium Chloride 0.45%) 300 mls @ 15 mls/hr IV ASDIRECTED [facility] Stop: 10/30/16 03:59 Last Admin: 10/29/16 08:39 Dose: Not Given Lorazepam (Ativan) 0.5 mg IV Q6H PRN PRN Reason: Anxiety Losartan Potassium (Cozaar) 100 mg PO DAILY [facility] Metoprolol Tartrate (Lopressor) 5 mg IVPUSH Q4H PRN PRN Reason: Tachycardia Ondansetron HCl (Zofran) 4 mg IV Q6H PRN PRN Reason: Nausea/Vomiting Polyethylene Glycol (Miralax) 17 gm PO DAILY PRN PRN Reason: Constipation Last Admin: 10/29/16 06:56 Dose: 17 gm Potassium Chloride (Klor-Con M20) 20 meq PO BID [facility] Last Admin: 10/29/16 08:42 Dose: 20 meq Prednisone (Prednisone) 30 mg PO WITHBREAKFAST [facility] Stop: 11/03/16 07:01 Prednisone (Prednisone) 20 mg PO WITHBREAKFAST [facility] Stop: 11/06/16 07:01 Prednisone (Prednisone) 10 mg PO WITHBREAKFAST [facility] Stop: 11/09/16 07:01 Prednisone (Prednisone) 40 mg PO WITHBREAKFAST [facility] Stop: 10/31/16 07:01 Last Admin: 10/29/16 06:56 Dose: 40 mg Saccharomyces Boulardii (Florastor) 250 mg PO DAILY [facility] Last Admin: 10/29/16 08:42 Dose: 250 mg Senna/Docusate Sodium (Senna Plus) 1 tab PO BID PRN PRN Reason: Constipation Sodium Chloride (Saline Flush) 10 ml FLUSH ASDIRECTED PRN PRN Reason: Keep Vein Open Tamsulosin HCl (Flomax) 0.4 mg PO DAILY [facility] Last Admin: 10/29/16 08:42 Dose: 0.4 mg Temazepam (Restoril) 15 mg PO BEDTIME PRN PRN Reason: Sleep Tramadol HCl (Ultram) 100 mg PO Q6H PRN PRN Reason: Pain Last Admin: 10/28/16 04:13 Dose: 100 mg Vit A/Vit C/Vit E/Selen/Cu/Zn/Lutei (Icaps Mv) 1 tab PO DAILY [facility] Last Admin: 10/29/16 08:41 Dose: 1 tab Discontinued Medications Ceftriaxone Sodium (Rocephin) 1 gm IM ONETIME ONE Stop: 10/27/16 14:22 Last Admin: 10/27/16 14:30 Dose: 1 gm Colchicine (Colcrys) 1.2 mg PO ONETIME ONE Stop: 10/27/16 17:11 Last Admin: 10/27/16 20:12 Dose: Not Given Hydromorphone HCl (Dilaudid) 0.5 mg IM ONETIME ONE Stop: 10/27/16 12:58 Last Admin: 10/27/16 13:30 Dose: 0.5 mg Sodium Chloride (Normal Saline) 250 mls @ 999 mls/hr IV .BOLUS [facility] Last Admin: 10/28/16 01:07 Dose: 999 mls/hr Magnesium Sulfate 2 gm/ Premix 50 mls @ 25 mls/hr IV ONETIME ONE Stop: 10/28/16 16:46 Last Admin: 10/28/16 15:37 Dose: 25 mls/hr Indomethacin (Indocin) 25 mg PO TIDMEALS [facility] Stop: 11/03/16 17:01 Last Admin: 10/28/16 11:12 Dose: 25 mg Ketorolac Tromethamine (Toradol) 15 mg IVPUSH Q8H [facility] Stop: 10/29/16 08:46 Last Admin: 10/29/16 08:39 Dose: 15 mg Losartan Potassium (Cozaar) 100 mg PO DAILY [facility] Last Admin: 10/28/16 08:01 Dose: 100 mg Magnesium Oxide (Magnesium Oxide) 400 mg PO ONETIME ONE Stop: 10/28/16 08:31 Last Admin: 10/28/16 11:13 Dose: 400 mg Magnesium Sulfate (Pharmacy To Dose - Magnesium Replacement) 1 dose .XX ASDIRECTED [facility] Methylprednisolone Sodium Succinate (Solu-Medrol) 80 mg IVPUSH Q12H [facility] Stop: 10/28/16 23:31 Last Admin: 10/29/16 00:29 Dose: 80 mg Pneumococcal Polyvalent Vaccine (Pneumovax 23) 0.5 ml IM .ONCE ONE Stop: 10/27/16 21:06 Potassium Chloride (Pharmacy To Dose - Potassium Replacement) 1 dose .XX ASDIRECTED [facility] Potassium Chloride (Klor-Con M20) 40 meq PO ONETIME ONE Stop: 10/27/16 17:29 Last Admin: 10/27/16 18:26 Dose: 40 meq Potassium Chloride (Klor-Con M20) 40 meq PO Q4H [facility] Stop: 10/28/16 12:16 Last Admin: 10/28/16 11:35 Dose: 40 meq Prednisone (Prednisone) 40 mg PO WITHBREAKFAST [facility] Stop: 10/30/16 08:01 Last Admin: 10/28/16 10:30 Dose: 40 mg - Exam Quality Assessment: DVT prophylaxis General: alert, oriented, cooperative, no acute distress HEENT: Pupils equal, Pupils reactive, EOMI Neck: supple, trachea midline Lungs: Clear to auscultation, Normal respiratory effort Cardiovascular: Regular Rate Abdomen: bowel sounds present, soft, no tenderness, no distension (Male) Exam: Deferred Back Exam: Normal Inspection Extremities: normal pulses, edema (right hand, dorsum) Neurological: no new focal deficit Psy/Mental Status: alert, normal affect, normal mood - Problem List & Annotations (1) Cellulitis SNOMED Code(s): 149235801 Code(s): L03.90 - CELLULITIS, UNSPECIFIED Status: Acute Current Visit: Yes (2) Gout attack SNOMED Code(s): 03417298, 15107017 Code(s): M10.9 - GOUT, UNSPECIFIED Status: Acute Current Visit: Yes (3) Joint inflammation of right hand and wrist SNOMED Code(s): 510132500, 675360739, 152226362 Code(s): M19.90 - UNSPECIFIED OSTEOARTHRITIS, UNSPECIFIED SITE Status: Acute Current Visit: Yes (4) Hypertension SNOMED Code(s): 80001380 Code(s): I10 - ESSENTIAL (PRIMARY) HYPERTENSION Status: Acute Current Visit: No - Problem List Review Problem List Initiated/Reviewed/Updated: Yes - My Orders Last 24 Hours: My Active Orders 10/28/16 12:00 Colchicine [Colcrys] 0.6 mg PO DAILY 10/28/16 16:00 Communication Order [RC] Q4HPRN 10/29/16 08:00 Sodium Chloride 0.45% 1,000 ml IV ASDIRECTED 10/30/16 09:00 Losartan [Cozaar] 100 mg PO DAILY - Plan Plan:: Assessment/Plan: Acute: Gout Attack: Right Hand - Had hx/o Gout he is not on maintenance medication - Risk factor: HCTZ (competes with Uric Acid for excretion) - Uric Acid level 7.5 - Indomethacin 25 mg po TID and Prednisone 40 mg po daily for 3 days then taper dose for 2 weeks - Famotidine 20 mg IVP BID - Dietary consult for gout diet SSTI/Cellulitis? - I felt it was more inflammatory in nature than infectious - Right Hand: joint and wrist - Received IV Rocephin in ED - Continue IV Abx - Ortho consulted in ED: Dr. Alvarez recommends the followin) Cephalexin (Keflex) 500mg every 6 hours starts tomorrow morning, 2) Indocin 75mg once a day for the next 7 days, start today, 3) Tramadol 1 tab every 6 hours as needed for pain, 3) Warm soapy water soaks 3 times a day for 45 minutes at a time, 4) Wear splint at all times, only remove splint for warm soaks then immediately reapply, 5) Elevate as much as possible to help with the swelling. Leukocytosis - WBC 9.91, ESR 106, CRP 14.4 - 2/2 above Hypokalemia - K 3.1 - Will replete and monitor Chronic: HTN HLD CAD SOB CKD Stage 3, At baseline with current GFR level Constipation OA Memory Loss Anemia Gout Plan: Admit to Med-Surg Routine AM Labs Ortho consult Resume Home Meds PT/OT consult Gout Diet SW/CM for d/c planning Code status: 1 LOS>96 hours expected with gradual response to therapy
[2016-10-29] MEDS: cefTRIAXone 2 GM in Sodium Chloride 0.9% 100 ML IV SCH (13:27)
[2016-10-29] MEDS: Temazepam 15 MG Cap PO PRN (20:07)
[2016-10-30] MEDS: predniSONE 20 MG Tab PO SCH (06:20)
[2016-10-30] MEDS: Colchicine 0.6 MG Tab PO SCH (08:23)
[2016-10-30] MEDS: Losartan 100 MG Tab PO SCH (08:24)
[2016-10-30] MEDS: Aspirin 81 MG Tab.EC PO SCH (08:25)
[2016-10-30] MEDS: Saccharomyces Boulardii (Probiotic) 250 MG Cap PO SCH (08:25)
[2016-10-30] MEDS: Fish Oil/Omega-3 Fatty Acids 1 Gm Cap PO SCH (08:25)
[2016-10-30] MEDS: Tamsulosin 0.4 MG Cap.ER PO SCH (08:25)
[2016-10-30] MEDS: Carvedilol 6.25 MG Tab PO SCH ×2 (08:25→21:00)
[2016-10-30] MEDS: Multivitamins with Minerals/Folic Acid/Lutein/Zeaxanth Tab PO SCH (08:25)
[2016-10-30] MEDS: amLODIPine 10 MG Tab PO SCH (08:26)
[2016-10-30] MEDS: Famotidine 20 MG/2 ML SDV IVPUSH SCH ×2 (08:26→21:02)
[2016-10-30] MEDS: Potassium Chloride 20 MEQ Tab.ER PO SCH ×2 (08:26→21:02)
--- NOTE | 2016-10-30 11:36 | PCM.PN ---
- General Info Date of Service: 10/30/16 Functional Status: Reports: pain controlled, tolerating diet, urinating - Review of Systems General: Reports: No Symptoms HEENT: Reports: no symptoms Pulmonary: Reports: no symptoms Cardiovascular: Reports: No Symptoms Gastrointestinal: Reports: No symptoms Genitourinary: Reports: no symptoms Musculoskeletal: Reports: hand pain (right) Skin: Reports: no symptoms Neurological: Reports: No Symptoms Psychiatric: Reports: no symptoms - Patient Data Vitals - most recent: Last Vital Signs Temp 37.5 C 10/30/16 07:55 Pulse 61 10/30/16 08:25 Resp 20 10/30/16 07:55 BP 141/78 H 10/30/16 08:26 Pulse Ox 95 10/30/16 07:55 Weight - most recent: 98.566 kg I&O - last 24 hours: Intake & Output 10/29/16 10/30/16 10/30/16 22:59 06:59 14:59 Intake Total 1100 550 0 Output Total 1000 650 Balance 100 -100 0 Lab Results last 24 hrs: Laboratory Results - last 24 hr 10/30/16 10/30/16 10/30/16 Range/Units 06:15 06:15 06:15 WBC 11.41 H (4.23-9.07) K/mm3 RBC 3.57 L (4.63-6.08) M/mm3 Hgb 11.0 L (13.7-17.5) gm/L Hct 32.3 L (40.1-51.0) % MCV 90.5 (79.0-92.2) fl MCH 30.8 (25.7-32.2) pg MCHC 34.1 (32.2-35.5) g/dl RDW Std Deviation 39.9 (35.1-43.9) fL Plt Count 197 (163-337) K/mm3 MPV 10.0 (9.4-12.3) fl Neut % (Auto) 81.9 H (34.0-67.9) % Lymph % (Auto) 10.4 L (21.8-53.1) % Bowman % (Auto) 7.2 (5.3-12.2) % Eos % (Auto) 0 L (0.8-7.0) Baso % (Auto) 0.1 (0.1-1.2) % Neut # (Auto) 9.35 H (1.78-5.38) K/mm3 Lymph # (Auto) 1.19 L (1.32-3.57) K/mm3 Bowman # (Auto) 0.82 (0.30-0.82) K/mm3 Eos # (Auto) 0.00 L (0.04-0.54) K/mm3 Baso # (Auto) 0.01 (0.01-0.08) K/mm3 ESR 111 H (0-15) mm/hr Sodium 144 (136-145) mEq/L Potassium 3.9 (3.5-5.1) mEq/L Chloride 112 H (98-107) mEq/L Carbon Dioxide 21 (21-32) mEq/L Anion Gap 14.9 (5-15) BUN 34 H (7-18) mg/dL Creatinine 1.2 (0.7-1.3) mg/dL Est Cr Clr Drug Dosing 59.19 mL/min Estimated GFR (MDRD) 59 (>60) mL/min BUN/Creatinine Ratio 28.3 H (14-18) Glucose 122 H (83-115) mg/dL Calcium 8.5 (8.5-10.1) mg/dL Magnesium 2.3 (1.8-2.4) mg/dl C-Reactive Protein 4.7 H* (<1.0) mg/dL Med Orders - Current: Current Medications Albuterol/Ipratropium (Duoneb 3.0-0.5 Mg/3 Ml) 3 ml NEB Q4H PRN PRN Reason: Shortness Of Breath/wheezing Amlodipine Besylate (Norvasc) 10 mg PO DAILY [facility] Last Admin: 10/30/16 08:26 Dose: 10 mg Aspirin (Halfprin) 81 mg PO DAILY [facility] Last Admin: 10/30/16 08:25 Dose: 81 mg Bisacodyl (Dulcolax) 5 mg PO DAILY PRN PRN Reason: Constipation Last Admin: 10/28/16 17:52 Dose: 5 mg Carvedilol (Coreg) 18.75 mg PO BID [facility] Last Admin: 10/30/16 08:25 Dose: 18.75 mg Colchicine (Colcrys) 0.6 mg PO DAILY [facility] Last Admin: 07/09/17 08:23 Dose: 0.6 mg Docusate Sodium (Colace) 100 mg PO BID PRN PRN Reason: Constipation Last Admin: 10/27/16 18:26 Dose: 100 mg Famotidine (Pepcid) 20 mg IVPUSH BID [facility] Last Admin: 10/30/16 08:26 Dose: 20 mg Fish Oil (Fish Oil) 1 gm PO DAILY [facility] Last Admin: 10/30/16 08:25 Dose: 1 gm Hydralazine HCl (Apresoline) 20 mg IVPUSH Q4H PRN PRN Reason: Hypertension Hydromorphone HCl (Dilaudid) 0.25 mg IVPUSH Q2H PRN PRN Reason: Pain (severe 7-10) Last Admin: 10/27/16 23:28 Dose: 0.25 mg Promethazine HCl 12.5 mg/ (Sodium Chloride) 50.5 mls @ 100 mls/hr IV Q6H PRN PRN Reason: Nausea/Vomiting Ceftriaxone Sodium 2 gm/ (Sodium Chloride) 100 mls @ 200 mls/hr IV Q24H [facility] Last Admin: 10/29/16 13:27 Dose: 200 mls/hr Lorazepam (Ativan) 0.5 mg IV Q6H PRN PRN Reason: Anxiety Losartan Potassium (Cozaar) 100 mg PO DAILY [facility] Last Admin: 10/30/16 08:24 Dose: 100 mg Metoprolol Tartrate (Lopressor) 5 mg IVPUSH Q4H PRN PRN Reason: Tachycardia Ondansetron HCl (Zofran) 4 mg IV Q6H PRN PRN Reason: Nausea/Vomiting Polyethylene Glycol (Miralax) 17 gm PO DAILY PRN PRN Reason: Constipation Last Admin: 10/29/16 06:56 Dose: 17 gm Potassium Chloride (Klor-Con M20) 20 meq PO BID [facility] Last Admin: 10/30/16 08:26 Dose: 20 meq Prednisone (Prednisone) 30 mg PO WITHBREAKFAST [facility] Stop: 11/03/16 07:01 Prednisone (Prednisone) 20 mg PO WITHBREAKFAST [facility] Stop: 11/06/16 07:01 Prednisone (Prednisone) 10 mg PO WITHBREAKFAST [facility] Stop: 11/09/16 07:01 Prednisone (Prednisone) 40 mg PO WITHBREAKFAST [facility] Stop: 10/31/16 07:01 Last Admin: 10/30/16 06:20 Dose: 40 mg Saccharomyces Boulardii (Florastor) 250 mg PO DAILY [facility] Last Admin: 10/30/16 08:25 Dose: 250 mg Senna/Docusate Sodium (Senna Plus) 1 tab PO BID PRN PRN Reason: Constipation Sodium Chloride (Saline Flush) 10 ml FLUSH ASDIRECTED PRN PRN Reason: Keep Vein Open Tamsulosin HCl (Flomax) 0.4 mg PO DAILY [facility] Last Admin: 10/30/16 08:25 Dose: 0.4 mg Temazepam (Restoril) 15 mg PO BEDTIME PRN PRN Reason: Sleep Last Admin: 10/29/16 20:07 Dose: 15 mg Tramadol HCl (Ultram) 100 mg PO Q6H PRN PRN Reason: Pain Last Admin: 10/28/16 04:13 Dose: 100 mg Vit A/Vit C/Vit E/Selen/Cu/Zn/Lutei (Icaps Mv) 1 tab PO DAILY [facility] Last Admin: 10/30/16 08:25 Dose: 1 tab Discontinued Medications Ceftriaxone Sodium (Rocephin) 1 gm IM ONETIME ONE Stop: 10/27/16 14:22 Last Admin: 10/27/16 14:30 Dose: 1 gm Colchicine (Colcrys) 1.2 mg PO ONETIME ONE Stop: 10/27/16 17:11 Last Admin: 10/27/16 20:12 Dose: Not Given Hydromorphone HCl (Dilaudid) 0.5 mg IM ONETIME ONE Stop: 10/27/16 12:58 Last Admin: 10/27/16 13:30 Dose: 0.5 mg Sodium Chloride (Normal Saline) 1,000 mls @ 100 mls/hr IV ASDIRECTED [facility] Last Admin: 10/28/16 17:52 Dose: 100 mls/hr Sodium Chloride (Normal Saline) 250 mls @ 999 mls/hr IV .BOLUS [facility] Last Admin: 10/28/16 01:07 Dose: 999 mls/hr Magnesium Sulfate 2 gm/ Premix 50 mls @ 25 mls/hr IV ONETIME ONE Stop: 10/28/16 16:46 Last Admin: 10/28/16 15:37 Dose: 25 mls/hr Sodium Chloride (Sodium Chloride 0.45%) 300 mls @ 15 mls/hr IV ASDIRECTED [facility] Stop: 10/30/16 03:59 Last Admin: 10/29/16 08:39 Dose: Not Given Indomethacin (Indocin) 25 mg PO TIDMEALS [facility] Stop: 11/03/16 17:01 Last Admin: 10/28/16 11:12 Dose: 25 mg Ketorolac Tromethamine (Toradol) 15 mg IVPUSH Q8H [facility] Stop: 10/29/16 08:46 Last Admin: 10/29/16 08:39 Dose: 15 mg Losartan Potassium (Cozaar) 100 mg PO DAILY [facility] Last Admin: 10/28/16 08:01 Dose: 100 mg Magnesium Oxide (Magnesium Oxide) 400 mg PO ONETIME ONE Stop: 10/28/16 08:31 Last Admin: 10/28/16 11:13 Dose: 400 mg Magnesium Sulfate (Pharmacy To Dose - Magnesium Replacement) 1 dose .XX ASDIRECTED [facility] Methylprednisolone Sodium Succinate (Solu-Medrol) 80 mg IVPUSH Q12H [facility] Stop: 10/28/16 23:31 Last Admin: 10/29/16 00:29 Dose: 80 mg Pneumococcal Polyvalent Vaccine (Pneumovax 23) 0.5 ml IM .ONCE ONE Stop: 10/27/16 21:06 Potassium Chloride (Pharmacy To Dose - Potassium Replacement) 1 dose .XX ASDIRECTED [facility] Potassium Chloride (Klor-Con M20) 40 meq PO ONETIME ONE Stop: 10/27/16 17:29 Last Admin: 10/27/16 18:26 Dose: 40 meq Potassium Chloride (Klor-Con M20) 40 meq PO Q4H [facility] Stop: 10/28/16 12:16 Last Admin: 10/28/16 11:35 Dose: 40 meq Prednisone (Prednisone) 40 mg PO WITHBREAKFAST [facility] Stop: 10/30/16 08:01 Last Admin: 10/28/16 10:30 Dose: 40 mg - Exam Quality Assessment: DVT prophylaxis General: alert, oriented, cooperative HEENT: Pupils equal, Pupils reactive, EOMI Neck: supple, trachea midline, no JVD Lungs: Clear to auscultation, Normal respiratory effort Cardiovascular: Regular Rate, Regular Rhythm Abdomen: bowel sounds present, soft, no tenderness, no distension (Male) Exam: Deferred Back Exam: Normal Inspection Extremities: normal pulses Skin: warm Neurological: no new focal deficit Psy/Mental Status: alert, normal affect, normal mood - Problem List & Annotations (1) Cellulitis SNOMED Code(s): 837555716 Code(s): L03.90 - CELLULITIS, UNSPECIFIED Status: Acute Current Visit: Yes (2) Gout attack SNOMED Code(s): 46009065, 76256952 Code(s): M10.9 - GOUT, UNSPECIFIED Status: Acute Current Visit: Yes (3) Joint inflammation of right hand and wrist SNOMED Code(s): 245865582, 464231305, 173076688 Code(s): M19.90 - UNSPECIFIED OSTEOARTHRITIS, UNSPECIFIED SITE Status: Acute Current Visit: Yes (4) Hypertension SNOMED Code(s): 00441214 Code(s): I10 - ESSENTIAL (PRIMARY) HYPERTENSION Status: Acute Current Visit: No - Problem List Review Problem List Initiated/Reviewed/Updated: Yes - My Orders Last 24 Hours: My Active Orders 10/30/16 09:00 Losartan [Cozaar] 100 mg PO DAILY - Plan Plan:: Assessment/Plan: Acute: Gout Attack: Right Hand - Had hx/o Gout he is not on maintenance medication - Risk factor: HCTZ (competes with Uric Acid for excretion) - Uric Acid level 7.5 - Indomethacin 25 mg po TID and Prednisone 40 mg po daily for 3 days then taper dose for 2 weeks - Famotidine 20 mg IVP BID - Dietary consult for gout diet SSTI/Cellulitis? - I felt it was more inflammatory in nature than infectious - Right Hand: joint and wrist - Received IV Rocephin in ED - Continue IV Abx - Ortho consulted in ED: Dr. Alvarez recommends the followin) Cephalexin (Keflex) 500mg every 6 hours starts tomorrow morning, 2) Indocin 75mg once a day for the next 7 days, start today, 3) Tramadol 1 tab every 6 hours as needed for pain, 3) Warm soapy water soaks 3 times a day for 45 minutes at a time, 4) Wear splint at all times, only remove splint for warm soaks then immediately reapply, 5) Elevate as much as possible to help with the swelling. Leukocytosis - WBC 9.91, ESR 106, CRP 14.4 - 2/2 above Hypokalemia - K 3.1 - Will replete and monitor Chronic: HTN HLD CAD SOB CKD Stage 3, At baseline with current GFR level Constipation OA Memory Loss Anemia Gout Plan: Admit to Med-Surg Routine AM Labs Ortho consult Resume Home Meds PT/OT consult Gout Diet SW/CM for d/c planning Code status: 1 LOS>96 hours expected with gradual response to therapy
[2016-10-30] MEDS: cefTRIAXone 2 GM in Sodium Chloride 0.9% 100 ML IV SCH (13:02)
[2016-10-30] MEDS: Temazepam 15 MG Cap PO PRN (21:50)
[2016-10-31] MEDS: predniSONE 20 MG Tab PO SCH (06:13)
--- NOTE | 2016-10-31 06:52 | CONS ---
CONSULTING PHYSICIAN: Bharath Alvarez MD DATE OF CONSULTATION: 10/28/2016 REASON FOR CONSULTATION: Orthopedic consultation called for by Dr. Strong for evaluation of severe right hand pain. HISTORY: The patient was evaluated in the hospital today. He is a 75-year-old male in [id number] distress involving his right upper extremity. The patient was seen in the emergency room on 10/27/2016, evaluated and was found to have possible cellulitis and also possible gout reaction involving the right upper extremity. The patient states that, prior to the increased pain, he was doing a lot of outdoor-type activity and work activity with his right upper extremity over the course of several days, when the pain developed several days prior to the patient being seen in the emergency room. The patient's pain has increased to the point where he has been unable to use his arm and hand, resulting in the emergency room evaluation. After the evaluation, the patient was admitted to the hospital for cellulitis of the right upper extremity and possible gout reaction with synovitis. The patient has been placed at a rest situation and orthopedic consultation was called for. The patient notes no specific injury to his right upper extremity other than overuse. He notes he has had positive nighttime sweats, but that has been going on prior to the onset of this increased pain. He notes no fever or chills tonight and today, but he does state that he has had history of a previous gout reaction requiring previous treatment. ALLERGIES: To lisinopril. PAST MEDICAL HISTORY: The patient has a history of increased prostate problems, also history of high blood pressure, and previous history of gout. MEDICATIONS: Hydrochlorothiazide, losartan, amlodipine, Norvasc, the patient is on potassium supplement, Coreg, multivitamins, and Flomax. PAST SURGICAL HISTORY: The patient has had negative reaction as far as previous surgical history reviewed, has a negative any type of blood clot history in the past, and also notes no specific bleeding-type problems. 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 SOCIAL HISTORY: The patient was a former smoker. He notes that he quit the use of tobacco dating back to 1996. The patient notes that he is a nondrinker. REVIEW OF SYSTEMS: HEENT: The patient has no complaints of head, eyes, ears, nose, or throat type problems with this admission. CHEST: The patient's chest, he states, has been clear, although, he does state that he has some difficulty in breathing, notes no specific chest pain. ABDOMEN: He denies any problems with abdominal pain, diarrhea, nausea, or vomiting. MUSCULOSKELETAL: He notes that his major pain involves his right hand, right wrist, and forearm area. NEUROLOGIC: He notes no specific neurological symptoms. HEME: He reports no specific bleeding problems. PHYSICAL EXAMINATION: GENERAL: A well-developed and well-nourished 75-year-old male in moderate-to- severe distress. HEAD, EYES, EARS, NOSE, AND THROAT: Normocephalic. NECK: Supple. CHEST: Clear. COR: Regular rate. ABDOMEN: Soft. : Intact. MUSCULOSKELETAL: Examination of the right upper extremity, the patient has severe pain with palpation in and around the right wrist area. Positive pain with any type of flexion and extension. Notes positive swelling. Positive pain over the extensor and flexor muscle groupings of the right hand with the patient having difficulty flexing and extending his fingers. But no erythema could be noted with the patient. There is slight redness in the wrist region. Otherwise, the right upper extremity evaluation is intact. LABORATORY EVALUATION: The patient shows an ESR of 106, his C-reactive protein is 14.4. His white blood cell count is 9.91. His uric acid level is 7.5. X-rays of the right wrist and hand show mild degenerative changes and some chondrocalcinosis in the carpal region, otherwise, no acute changes for bone injury. OVERALL IMPRESSION: 1. Right upper extremity, wrist/hand, with cellulitis. 2. Gouty arthritis of the right upper extremity. PLAN: 1. The patient will be placed on an inflammation reduction type program using indomethacin and prednisone. 2. Splinting of the right upper extremity to include the wrist, hand, and fingers. 3. Start warm moist heat treatments 3 times a day 1 hour with each treatment. 4. Maintain elevation. 5. Antibiotics, Keflex 500 mg every 6 hours. 6. Once the patient is stabilized, to schedule Orthopedic Clinic in approximately 5 days for a recheck of the right hand and wrist area. MMODAL /[id number]
[2016-10-31] MEDS: Famotidine 20 MG/2 ML SDV IVPUSH SCH (09:20)
[2016-10-31] MEDS: Carvedilol 6.25 MG Tab PO SCH (09:21)
[2016-10-31] MEDS: Fish Oil/Omega-3 Fatty Acids 1 Gm Cap PO SCH (09:21)
[2016-10-31] MEDS: Potassium Chloride 20 MEQ Tab.ER PO SCH (09:21)
[2016-10-31] MEDS: Tamsulosin 0.4 MG Cap.ER PO SCH (09:21)
[2016-10-31] MEDS: Losartan 100 MG Tab PO SCH (09:22)
[2016-10-31] MEDS: Multivitamins with Minerals/Folic Acid/Lutein/Zeaxanth Tab PO SCH (09:22)
[2016-10-31] MEDS: Colchicine 0.6 MG Tab PO SCH (09:22)
[2016-10-31] MEDS: amLODIPine 10 MG Tab PO SCH (09:23)
[2016-10-31] MEDS: Aspirin 81 MG Tab.EC PO SCH (09:23)
[2016-10-31] MEDS: Saccharomyces Boulardii (Probiotic) 250 MG Cap PO SCH (09:23)
--- NOTE | 2016-10-31 11:22 | PCM.DCSUM1 ---
<Esha Moe - Last Filed: 10/31/16 11:28> Discharge Summary - Hospital Course Free Text/Narrative:: This is a 75-year-old white male with past medical history of impaired vision, hyperlipidemia, hypertension, coronary artery disease, chronic shortness of breath, chronic constipation, memory loss and anemia who presents to the emergency department with complaints of 2-3 day history of red, swollen and painful right hand. His symptoms started after doing some yard work. He denies any trauma or injury. He denies any systemic symptoms. His range of motion is limited due to pain with movement. He denies any numbness or tingling but admits to some weakness. Patient carries a history of gout. He used to be on allopurinol but is no longer on maintenance medication. Patient denies any other associated complaints. His initial workup in the emergency department shows a CBC remarkable for WBC of 9.91, RBC of 4, hemoglobin 12.5, hematocrit of 36.1, neutrophils counts of 7.11, and ESR of 106. His chemistry is remarkable for potassium of 3.1. His chest x-ray shows arthritic changes. Patient is being admitted for acute gout and SSTI. He is full code. Dr. Alvarez with Orthopedics was consulted and also followed patient during hospital stay. He was treated with colchicine, prednisone, rocephin and tramadol for pain. Warm soaks and compresses, elevation. Uric acid level was 6.8 , ESR trended down. Potassium and magnesium replaced and stable at time of discharge. HCTZ was discontinued. He will be started on spironolactone 12.5 in addition to other antihypertensive medications. Pain, swelling and erythema to hand improved. Inflammatory markers improved, cryptanalyst and strenght were returning. He will be discharged home today on keflex, continued prednisone taper, allopurinol and tramadol for PRN pain. He is to follow up with Dr. Alvarez and with PCP, Dr. Mcnamara after discharge as instructed. - Discharge Data Discharge Date: 10/31/16 (admit date10/27/16) Discharge Disposition: Home, Self-Care 01 Condition: Good - Patient Summary/Data Operative Procedure(s) Performed: None Complications: None Consults: Consultations 10/27/16 17:20 Consult to Case Management [CONS] Routine Consult to Director Oracle Database [CONS] Routine Consult to Physician [CONS] Routine --Orthopedics, Dr. Alvarez Consult to Practical Nursing Faculty [CONS] Routine Consult to Spiritual Care [CONS] Routine OT Evaluation and Treatment [CONS] Routine PT Evaluation and Treatment [CONS] Routine Labs Pending at D/C: None Recommended Follow-up Testing/Procedures: Warm soapy water soaks 3 times a day for 45 minutes at a time. Wear splint at all times. Only remove splint for warm soaks then immediately reapply. Elevate as much as possible to help with the swelling. All as instructed per Dr. Alvarez. Follow up with Dr. Alvarez within 5-7 days of discharge Follow up with PCP, Dr. Mcnamara, within 10 days of discharge Planned Operative Procedure(s) after DC: None Hospital Course: As above - Patient Instructions Diet: Heart Healthy Diet Diet, Other: Low Purine Diet Activity: As Tolerated (wear brace at all times; alternate periods of rest with activity for hands/upper extremity) Showering/Bathing: May Shower Notify Provider of: Fever, Increased Pain, Swelling and Redness - Discharge Plan Prescriptions/Med Rec: Cephalexin [Keflex] 500 mg PO Q6HR #15 cap Allopurinol [Zyloprim] 100 mg PO DAILY #30 tablet Docusate Sodium [Colace] 100 mg PO BID PRN #30 cap PRN Reason: Constipation Famotidine [Pepcid] 20 mg PO BID #60 tablet Prednisone [IJD: predniSONE] 20 mg PO WITHBREAKFAST #3 tablet Spironolactone [Aldactone] 12.5 mg PO DAILY #30 tablet predniSONE 10 mg PO WITHBREAKFAST #3 tablet predniSONE 30 mg PO WITHBREAKFAST #3 tablet traMADol [Ultram] 100 mg PO Q6H PRN #40 tablet PRN Reason: Pain Home Medications: Home Meds Aspirin [Halfprin] 81 mg PO DAILY 10/27/16 [History] Carvedilol [Coreg] 18.75 mg PO BID 10/27/16 [History] Fish Oil/[place]-3 Fatty Acids [Fish Oil 1,000 MG] 1,000 mg PO DAILY 10/27/16 [ History] Fluticasone Propionate [Flonase] 1 spray NASBOTH BID 10/27/16 [History] L.acidoph,Paracasei, B.lactis [Probiotic] 1 each PO DAILY 10/27/16 [History] Losartan [Cozaar] 100 mg PO DAILY 10/27/16 [History] Multivitamin W-Minerals/Lutein [Vision Plus Lutein Vitamin] 1 tab PO DAILY 10/27 [History] Potassium Chloride [Klor-Con M20] 20 meq PO BID 10/27/16 [History] Tamsulosin [Flomax] 0.4 mg PO DAILY 10/27/16 [History] amLODIPine [Norvasc] 10 mg PO DAILY 10/27/16 [History] Allopurinol [Zyloprim] 100 mg PO DAILY #30 tablet 10/31/16 [Rx] Cebria Memory Aid 1 cap PO DAILY 10/31/16 [History] Cephalexin [Keflex] 500 mg PO Q6HR #15 cap 10/31/16 [Rx] Docusate Sodium [Colace] 100 mg PO BID PRN #30 cap 10/31/16 [Rx] Famotidine [Pepcid] 20 mg PO BID #60 tablet 10/31/16 [Rx] Internal 911 Detox Pill 1 tab PO DAILY 10/31/16 [History] Prednisone [IJD: predniSONE] 20 mg PO WITHBREAKFAST #3 tablet 10/31/16 [Rx] Spironolactone [Aldactone] 12.5 mg PO DAILY #30 tablet 10/31/16 [Rx] predniSONE 10 mg PO WITHBREAKFAST #3 tablet 10/31/16 [Rx] predniSONE 30 mg PO WITHBREAKFAST #3 tablet 10/31/16 [Rx] traMADol [Ultram] 100 mg PO Q6H PRN #40 tablet 10/31/16 [Rx] Patient Handouts: Low-Purine Diet, Gout, [id number], Cellulitis, Adult, Easy- to-Read, Managing Your High Blood Pressure Referrals: Bharath Alvarez MD [Physician] - 11/02/16 10:15 am (Please follow-up with Dr. Claudio on November 02 at 1015am.) Te Mcnamara [Primary Care Provider] - 11/07/16 9:00 am (Please check in at 8: 45am) - Discharge Summary/Plan Comment DC Time >30 min.: Yes (40 min) - General Info Date of Service: 10/31/16 Admission Dx/Problem (Free Text: Admission Diagnosis/Problem Admission Diagnosis/Problem Cellulitis/Gout flare Patient seen this morning on team rounding. Pain to hand much improved, strength returning. Patient ready for DC today and is anxious to get back home. Functional Status: Reports: pain controlled, tolerating diet, ambulating, urinating. Denies: new symptoms - Review of Systems General: Reports: No Symptoms. Denies: Weakness (resolved to hand) HEENT: Reports: no symptoms Pulmonary: Reports: no symptoms Cardiovascular: Reports: No Symptoms Gastrointestinal: Reports: No symptoms Genitourinary: Reports: no symptoms Musculoskeletal: Reports: hand pain (much improved), joint pain (improved), joint swelling (improved) Skin: Reports: no symptoms Neurological: Reports: No Symptoms Psychiatric: Reports: no symptoms - Patient Data Vitals - Most Recent: Last Vital Signs Temp 98.1 F 10/31/16 08:02 Pulse 60 10/31/16 09:21 Resp 16 10/31/16 08:02 BP 165/108 H 10/31/16 09:23 Pulse Ox 97 10/31/16 08:02 Weight - Most Recent: 97.795 kg I&O - Last 24 hours: Intake & Output 10/30/16 10/31/16 10/31/16 22:59 06:59 14:59 Intake Total 2395 250 180 Output Total 1400 700 Balance 995 -450 180 Lab Results - Last 24 hrs: Laboratory Results - last 24 hr 10/31/16 10/31/16 10/31/16 Range/Units 06:07 06:07 06:07 WBC 7.82 (4.23-9.07) K/mm3 RBC 3.59 L (4.63-6.08) M/mm3 Hgb 11.1 L (13.7-17.5) gm/L Hct 32.6 L (40.1-51.0) % MCV 90.8 (79.0-92.2) fl MCH 30.9 (25.7-32.2) pg MCHC 34.0 (32.2-35.5) g/dl RDW Std Deviation 39.6 (35.1-43.9) fL Plt Count 200 (163-337) K/mm3 MPV 9.7 (9.4-12.3) fl Neut % (Auto) 66.1 (34.0-67.9) % Lymph % (Auto) 19.9 L (21.8-53.1) % [place] % (Auto) 11.8 (5.3-12.2) % Eos % (Auto) 0.3 L (0.8-7.0) Baso % (Auto) 0.1 (0.1-1.2) % Neut # (Auto) 5.17 (1.78-5.38) K/mm3 Lymph # (Auto) 1.56 (1.32-3.57) K/mm3 [place] # (Auto) 0.92 H (0.30-0.82) K/mm3 Eos # (Auto) 0.02 L (0.04-0.54) K/mm3 Baso # (Auto) 0.01 (0.01-0.08) K/mm3 Manual Slide Review Normal smear ESR 72 H (0-15) mm/hr Sodium 143 (136-145) mEq/L Potassium 3.9 (3.5-5.1) mEq/L Chloride 110 H (98-107) mEq/L Carbon Dioxide 22 (21-32) mEq/L Anion Gap 14.9 (5-15) BUN 26 H (7-18) mg/dL Creatinine 1.1 (0.7-1.3) mg/dL Est Cr Clr Drug Dosing 64.57 mL/min Estimated GFR (MDRD) > 60 (>60) mL/min BUN/Creatinine Ratio 23.6 H (14-18) Glucose 102 (83-115) mg/dL Calcium 8.6 (8.5-10.1) mg/dL Magnesium 2.0 (1.8-2.4) mg/dl C-Reactive Protein 2.7 H* (<1.0) mg/dL Med Orders - Current: Current Medications Albuterol/Ipratropium (Duoneb 3.0-0.5 Mg/3 Ml) 3 ml NEB Q4H PRN PRN Reason: Shortness Of Breath/wheezing Amlodipine Besylate (Norvasc) 10 mg PO DAILY [facility] Last Admin: 10/31/16 09:23 Dose: 10 mg Aspirin (Halfprin) 81 mg PO DAILY [facility] Last Admin: 10/31/16 09:23 Dose: 81 mg Bisacodyl (Dulcolax) 5 mg PO DAILY PRN PRN Reason: Constipation Last Admin: 10/28/16 17:52 Dose: 5 mg Carvedilol (Coreg) 18.75 mg PO BID [facility] Last Admin: 10/31/16 09:21 Dose: 18.75 mg Colchicine (Colcrys) 0.6 mg PO DAILY [facility] Last Admin: 10/31/16 09:22 Dose: 0.6 mg Docusate Sodium (Colace) 100 mg PO BID PRN PRN Reason: Constipation Last Admin: 10/27/16 18:26 Dose: 100 mg Famotidine (Pepcid) 20 mg PO BID [facility] Fish Oil (Fish Oil) 1 gm PO DAILY [facility] Last Admin: 10/31/16 09:21 Dose: 1 gm Hydralazine HCl (Apresoline) 20 mg IVPUSH Q4H PRN PRN Reason: Hypertension Hydromorphone HCl (Dilaudid) 0.25 mg IVPUSH Q2H PRN PRN Reason: Pain (severe 7-10) Last Admin: 10/27/16 23:28 Dose: 0.25 mg Promethazine HCl 12.5 mg/ (Sodium Chloride) 50.5 mls @ 100 mls/hr IV Q6H PRN PRN Reason: Nausea/Vomiting Ceftriaxone Sodium 2 gm/ (Sodium Chloride) 100 mls @ 200 mls/hr IV Q24H [facility] Last Admin: 10/30/16 13:02 Dose: 200 mls/hr Lorazepam (Ativan) 0.5 mg IV Q6H PRN PRN Reason: Anxiety Losartan Potassium (Cozaar) 100 mg PO DAILY [facility] Last Admin: 10/31/16 09:22 Dose: 100 mg Metoprolol Tartrate (Lopressor) 5 mg IVPUSH Q4H PRN PRN Reason: Tachycardia Ondansetron HCl (Zofran) 4 mg IV Q6H PRN PRN Reason: Nausea/Vomiting Polyethylene Glycol (Miralax) 17 gm PO DAILY PRN PRN Reason: Constipation Last Admin: 10/29/16 06:56 Dose: 17 gm Potassium Chloride (Klor-Con M20) 20 meq PO BID [facility] Last Admin: 10/31/16 09:21 Dose: 20 meq Prednisone (Prednisone) 30 mg PO WITHBREAKFAST [facility] Stop: 11/03/16 07:01 Prednisone (Prednisone) 20 mg PO WITHBREAKFAST [facility] Stop: 11/06/16 07:01 Prednisone (Prednisone) 10 mg PO WITHBREAKFAST [facility] Stop: 11/09/16 07:01 Saccharomyces Boulardii (Florastor) 250 mg PO DAILY [facility] Last Admin: 10/31/16 09:23 Dose: 250 mg Senna/Docusate Sodium (Senna Plus) 1 tab PO BID PRN PRN Reason: Constipation Sodium Chloride (Saline Flush) 10 ml FLUSH ASDIRECTED PRN PRN Reason: Keep Vein Open Tamsulosin HCl (Flomax) 0.4 mg PO DAILY [facility] Last Admin: 10/31/16 09:21 Dose: 0.4 mg Temazepam (Restoril) 15 mg PO BEDTIME PRN PRN Reason: Sleep Last Admin: 10/30/16 21:50 Dose: 15 mg Tramadol HCl (Ultram) 100 mg PO Q6H PRN PRN Reason: Pain Last Admin: 10/28/16 04:13 Dose: 100 mg Vit A/Vit C/Vit E/Selen/Cu/Zn/Lutei (Icaps Mv) 1 tab PO DAILY [facility] Last Admin: 10/31/16 09:22 Dose: 1 tab Discontinued Medications Ceftriaxone Sodium (Rocephin) 1 gm IM ONETIME ONE Stop: 10/27/16 14:22 Last Admin: 10/27/16 14:30 Dose: 1 gm Colchicine (Colcrys) 1.2 mg PO ONETIME ONE Stop: 10/27/16 17:11 Last Admin: 10/27/16 20:12 Dose: Not Given Famotidine (Pepcid) 20 mg IVPUSH BID [facility] Last Admin: 10/31/16 09:20 Dose: 20 mg Hydromorphone HCl (Dilaudid) 0.5 mg IM ONETIME ONE Stop: 10/27/16 12:58 Last Admin: 10/27/16 13:30 Dose: 0.5 mg Sodium Chloride (Normal Saline) 1,000 mls @ 100 mls/hr IV ASDIRECTED [facility] Last Admin: 10/28/16 17:52 Dose: 100 mls/hr Sodium Chloride (Normal Saline) 250 mls @ 999 mls/hr IV .BOLUS [facility] Last Admin: 10/28/16 01:07 Dose: 999 mls/hr Magnesium Sulfate 2 gm/ Premix 50 mls @ 25 mls/hr IV ONETIME ONE Stop: 10/28/16 16:46 Last Admin: 10/28/16 15:37 Dose: 25 mls/hr Sodium Chloride (Sodium Chloride 0.45%) 300 mls @ 15 mls/hr IV ASDIRECTED [facility] Stop: 10/30/16 03:59 Last Admin: 10/29/16 08:39 Dose: Not Given Indomethacin (Indocin) 25 mg PO TIDMEALS ARIELLE Stop: 11/03/16 17:01 Last Admin: 10/28/16 11:12 Dose: 25 mg Ketorolac Tromethamine (Toradol) 15 mg IVPUSH Q8H [facility] Stop: 10/29/16 08:46 Last Admin: 10/29/16 08:39 Dose: 15 mg Losartan Potassium (Cozaar) 100 mg PO DAILY [facility] Last Admin: 10/28/16 08:01 Dose: 100 mg Magnesium Oxide (Magnesium Oxide) 400 mg PO ONETIME ONE Stop: 10/28/16 08:31 Last Admin: 10/28/16 11:13 Dose: 400 mg Magnesium Sulfate (Pharmacy To Dose - Magnesium Replacement) 1 dose .XX ASDIRECTED [facility] Methylprednisolone Sodium Succinate (Solu-Medrol) 80 mg IVPUSH Q12H [facility] Stop: 10/28/16 23:31 Last Admin: 10/29/16 00:29 Dose: 80 mg Pneumococcal Polyvalent Vaccine (Pneumovax 23) 0.5 ml IM .ONCE ONE Stop: 10/27/16 21:06 Potassium Chloride (Pharmacy To Dose - Potassium Replacement) 1 dose .XX ASDIRECTED [facility] Potassium Chloride (Klor-Con M20) 40 meq PO ONETIME ONE Stop: 10/27/16 17:29 Last Admin: 10/27/16 18:26 Dose: 40 meq Potassium Chloride (Klor-Con M20) 40 meq PO Q4H [facility] Stop: 10/28/16 12:16 Last Admin: 10/28/16 11:35 Dose: 40 meq Prednisone (Prednisone) 40 mg PO WITHBREAKFAST [facility] Stop: 10/30/16 08:01 Last Admin: 10/28/16 10:30 Dose: 40 mg Prednisone (Prednisone) 40 mg PO WITHBREAKFAST [facility] Stop: 10/31/16 07:01 Last Admin: 10/31/16 06:13 Dose: 40 mg - Exam Quality Assessment: Reports: DVT prophylaxis General: Reports: alert, oriented, cooperative, no acute distress HEENT: Reports: Pupils equal, Pupils reactive, EOMI, Mucous membr. moist/pink Neck: Reports: supple Lungs: Reports: Clear to auscultation, Normal respiratory effort Cardiovascular: Reports: Regular Rate, Regular Rhythm Abdomen: Reports: bowel sounds present, soft, no tenderness (Male) Exam: Deferred Rectal (Males) Exam: Deferred Extremities: Reports: no edema, other (Hand with minimal erythema and swelling today, cryptanalyst strenght is returned and equal bilat) Neurological: Reports: no new focal deficit Psy/Mental Status: Reports: alert, normal affect, normal mood *Q Meaningful Use (DIS) - VTE *Q VTE Criteria *Q: - Stroke *Q Stroke Criteria *Q: - AMI *Q AMI Criteria *Q: <Rachna Rodriguez - Last Filed: 10/31/16 14:35> Discharge Summary - Hospital Course Free Text/Narrative:: Treatment for gout/cellulitis with a good response to therapy; see above for DC meds. - Discharge Diagnosis/Problem(s) (1) Cellulitis SNOMED Code(s): 916141434 ICD Code: L03.90 - CELLULITIS, UNSPECIFIED Status: Acute Current Visit: Yes (2) Gout attack SNOMED Code(s): 90144119, 82410862 ICD Code: M10.9 - GOUT, UNSPECIFIED Status: Acute Current Visit: Yes (3) Joint inflammation of right hand and wrist SNOMED Code(s): 906417643, 625873724, 009119189 ICD Code: M19.90 - UNSPECIFIED OSTEOARTHRITIS, UNSPECIFIED SITE Status: Acute Current Visit: Yes (4) Hypertension SNOMED Code(s): 04949313 ICD Code: I10 - ESSENTIAL (PRIMARY) HYPERTENSION Status: Acute Current Visit: No - Patient Summary/Data Consults: Consultations 10/27/16 17:20 Consult to Case Management [CONS] Routine Consult to Director Oracle Database [CONS] Routine Consult to Physician [CONS] Routine Consult to Practical Nursing Faculty [CONS] Routine Consult to Spiritual Care [CONS] Routine OT Evaluation and Treatment [CONS] Routine PT Evaluation and Treatment [CONS] Routine - Patient Data Vitals - Most Recent: Last Vital Signs Temp 36.8 C 10/31/16 11:45 Pulse 65 10/31/16 11:45 Resp 14 10/31/16 11:45 BP 130/87 10/31/16 11:45 Pulse Ox 97 10/31/16 11:45 I&O - Last 24 hours: Intake & Output 10/30/16 10/31/16 10/31/16 22:59 06:59 14:59 Intake Total 2395 250 180 Output Total 1400 700 Balance 995 -450 180 Lab Results - Last 24 hrs: Laboratory Results - last 24 hr 10/27/16 10/31/16 10/31/16 Range/Units 20:40 06:07 06:07 WBC 7.82 (4.23-9.07) K/mm3 RBC 3.59 L (4.63-6.08) M/mm3 Hgb 11.1 L (13.7-17.5) gm/L Hct 32.6 L (40.1-51.0) % MCV 90.8 (79.0-92.2) fl MCH 30.9 (25.7-32.2) pg MCHC 34.0 (32.2-35.5) g/dl RDW Std Deviation 39.6 (35.1-43.9) fL Plt Count 200 (163-337) K/mm3 MPV 9.7 (9.4-12.3) fl Neut % (Auto) 66.1 (34.0-67.9) % Lymph % (Auto) 19.9 L (21.8-53.1) % [place] % (Auto) 11.8 (5.3-12.2) % Eos % (Auto) 0.3 L (0.8-7.0) Baso % (Auto) 0.1 (0.1-1.2) % Neut # (Auto) 5.17 (1.78-5.38) K/mm3 Lymph # (Auto) 1.56 (1.32-3.57) K/mm3 [place] # (Auto) 0.92 H (0.30-0.82) K/mm3 Eos # (Auto) 0.02 L (0.04-0.54) K/mm3 Baso # (Auto) 0.01 (0.01-0.08) K/mm3 Manual Slide Review Normal smear ESR 72 H (0-15) mm/hr Sodium (136-145) mEq/L Potassium (3.5-5.1) mEq/L Chloride (98-107) mEq/L Carbon Dioxide (21-32) mEq/L Anion Gap (5-15) BUN (7-18) mg/dL Creatinine (0.7-1.3) mg/dL Est Cr Clr Drug Dosing mL/min Estimated GFR (MDRD) (>60) mL/min BUN/Creatinine Ratio (14-18) Glucose (83-115) mg/dL Calcium (8.5-10.1) mg/dL Magnesium (1.8-2.4) mg/dl C-Reactive Protein (<1.0) mg/dL Urine Total Volume Not Reportable Ur Uric Acid 24 Hr TNP Ur Uric Acid Concent 54.4 mg/dL 10/31/16 Range/Units 06:07 WBC (4.23-9.07) K/mm3 RBC (4.63-6.08) M/mm3 Hgb (13.7-17.5) gm/L Hct (40.1-51.0) % MCV (79.0-92.2) fl MCH (25.7-32.2) pg MCHC (32.2-35.5) g/dl RDW Std Deviation (35.1-43.9) fL Plt Count (163-337) K/mm3 MPV (9.4-12.3) fl Neut % (Auto) (34.0-67.9) % Lymph % (Auto) (21.8-53.1) % [place] % (Auto) (5.3-12.2) % Eos % (Auto) (0.8-7.0) Baso % (Auto) (0.1-1.2) % Neut # (Auto) (1.78-5.38) K/mm3 Lymph # (Auto) (1.32-3.57) K/mm3 [place] # (Auto) (0.30-0.82) K/mm3 Eos # (Auto) (0.04-0.54) K/mm3 Baso # (Auto) (0.01-0.08) K/mm3 Manual Slide Review ESR (0-15) mm/hr Sodium 143 (136-145) mEq/L Potassium 3.9 (3.5-5.1) mEq/L Chloride 110 H (98-107) mEq/L Carbon Dioxide 22 (21-32) mEq/L Anion Gap 14.9 (5-15) BUN 26 H (7-18) mg/dL Creatinine 1.1 (0.7-1.3) mg/dL Est Cr Clr Drug Dosing 64.57 mL/min Estimated GFR (MDRD) > 60 (>60) mL/min BUN/Creatinine Ratio 23.6 H (14-18) Glucose 102 (83-115) mg/dL Calcium 8.6 (8.5-10.1) mg/dL Magnesium 2.0 (1.8-2.4) mg/dl C-Reactive Protein 2.7 H* (<1.0) mg/dL Urine Total Volume Ur Uric Acid 24 Hr Ur Uric Acid Concent mg/dL Med Orders - Current: Current Medications Albuterol/Ipratropium (Duoneb 3.0-0.5 Mg/3 Ml) 3 ml NEB Q4H PRN PRN Reason: Shortness Of Breath/wheezing Amlodipine Besylate (Norvasc) 10 mg PO DAILY [facility] Last Admin: 10/31/16 09:23 Dose: 10 mg Aspirin (Halfprin) 81 mg PO DAILY [facility] Last Admin: 10/31/16 09:23 Dose: 81 mg Bisacodyl (Dulcolax) 5 mg PO DAILY PRN PRN Reason: Constipation Last Admin: 10/28/16 17:52 Dose: 5 mg Carvedilol (Coreg) 18.75 mg PO BID [facility] Last Admin: 10/31/16 09:21 Dose: 18.75 mg Colchicine (Colcrys) 0.6 mg PO DAILY [facility] Last Admin: 10/31/16 09:22 Dose: 0.6 mg Docusate Sodium (Colace) 100 mg PO BID PRN PRN Reason: Constipation Last Admin: 10/27/16 18:26 Dose: 100 mg Famotidine (Pepcid) 20 mg PO BID [facility] Fish Oil (Fish Oil) 1 gm PO DAILY [facility] Last Admin: 10/31/16 09:21 Dose: 1 gm Hydralazine HCl (Apresoline) 20 mg IVPUSH Q4H PRN PRN Reason: Hypertension Hydromorphone HCl (Dilaudid) 0.25 mg IVPUSH Q2H PRN PRN Reason: Pain (severe 7-10) Last Admin: 10/27/16 23:28 Dose: 0.25 mg Promethazine HCl 12.5 mg/ (Sodium Chloride) 50.5 mls @ 100 mls/hr IV Q6H PRN PRN Reason: Nausea/Vomiting Ceftriaxone Sodium 2 gm/ (Sodium Chloride) 100 mls @ 200 mls/hr IV Q24H [facility] Last Admin: 10/31/16 13:21 Dose: 200 mls/hr Lorazepam (Ativan) 0.5 mg IV Q6H PRN PRN Reason: Anxiety Losartan Potassium (Cozaar) 100 mg PO DAILY [facility] Last Admin: 10/31/16 09:22 Dose: 100 mg Metoprolol Tartrate (Lopressor) 5 mg IVPUSH Q4H PRN PRN Reason: Tachycardia Ondansetron HCl (Zofran) 4 mg IV Q6H PRN PRN Reason: Nausea/Vomiting Polyethylene Glycol (Miralax) 17 gm PO DAILY PRN PRN Reason: Constipation Last Admin: 10/29/16 06:56 Dose: 17 gm Potassium Chloride (Klor-Con M20) 20 meq PO BID [facility] Last Admin: 10/31/16 09:21 Dose: 20 meq Prednisone (Prednisone) 30 mg PO WITHBREAKFAST [facility] Stop: 11/03/16 07:01 Prednisone (Prednisone) 20 mg PO WITHBREAKFAST [facility] Stop: 11/06/16 07:01 Prednisone (Prednisone) 10 mg PO WITHBREAKFAST [facility] Stop: 11/09/16 07:01 Saccharomyces Boulardii (Florastor) 250 mg PO DAILY [facility] Last Admin: 10/31/16 09:23 Dose: 250 mg Senna/Docusate Sodium (Senna Plus) 1 tab PO BID PRN PRN Reason: Constipation Sodium Chloride (Saline Flush) 10 ml FLUSH ASDIRECTED PRN PRN Reason: Keep Vein Open Spironolactone (Aldactone) 12.5 mg PO DAILY [facility] Last Admin: 10/31/16 13:20 Dose: 12.5 mg Tamsulosin HCl (Flomax) 0.4 mg PO DAILY [facility] Last Admin: 10/31/16 09:21 Dose: 0.4 mg Temazepam (Restoril) 15 mg PO BEDTIME PRN PRN Reason: Sleep Last Admin: 10/30/16 21:50 Dose: 15 mg Tramadol HCl (Ultram) 100 mg PO Q6H PRN PRN Reason: Pain Last Admin: 10/28/16 04:13 Dose: 100 mg Vit A/Vit C/Vit E/Selen/Cu/Zn/Lutei (Icaps Mv) 1 tab PO DAILY [facility] Last Admin: 10/31/16 09:22 Dose: 1 tab Discontinued Medications Ceftriaxone Sodium (Rocephin) 1 gm IM ONETIME ONE Stop: 10/27/16 14:22 Last Admin: 10/27/16 14:30 Dose: 1 gm Colchicine (Colcrys) 1.2 mg PO ONETIME ONE Stop: 10/27/16 17:11 Last Admin: 10/27/16 20:12 Dose: Not Given Diphtheria/Tetanus/Acell Pertussis (Adacel) 0.5 ml IM .ONCE ONE Stop: 10/31/16 13:01 Last Admin: 10/31/16 13:18 Dose: 0.5 ml Famotidine (Pepcid) 20 mg IVPUSH BID [facility] Last Admin: 10/31/16 09:20 Dose: 20 mg Hydromorphone HCl (Dilaudid) 0.5 mg IM ONETIME ONE Stop: 10/27/16 12:58 Last Admin: 10/27/16 13:30 Dose: 0.5 mg Sodium Chloride (Normal Saline) 1,000 mls @ 100 mls/hr IV ASDIRECTED [facility] Last Admin: 10/28/16 17:52 Dose: 100 mls/hr Sodium Chloride (Normal Saline) 250 mls @ 999 mls/hr IV .BOLUS [facility] Last Admin: 10/28/16 01:07 Dose: 999 mls/hr Magnesium Sulfate 2 gm/ Premix 50 mls @ 25 mls/hr IV ONETIME ONE Stop: 10/28/16 16:46 Last Admin: 10/28/16 15:37 Dose: 25 mls/hr Sodium Chloride (Sodium Chloride 0.45%) 300 mls @ 15 mls/hr IV ASDIRECTED [facility] Stop: 10/30/16 03:59 Last Admin: 10/29/16 08:39 Dose: Not Given Indomethacin (Indocin) 25 mg PO TIDMEALS [facility] Stop: 11/03/16 17:01 Last Admin: 10/28/16 11:12 Dose: 25 mg Ketorolac Tromethamine (Toradol) 15 mg IVPUSH Q8H [facility] Stop: 10/29/16 08:46 Last Admin: 10/29/16 08:39 Dose: 15 mg Losartan Potassium (Cozaar) 100 mg PO DAILY [facility] Last Admin: 10/28/16 08:01 Dose: 100 mg Magnesium Oxide (Magnesium Oxide) 400 mg PO ONETIME ONE Stop: 10/28/16 08:31 Last Admin: 10/28/16 11:13 Dose: 400 mg Magnesium Sulfate (Pharmacy To Dose - Magnesium Replacement) 1 dose .XX ASDIRECTED [facility] Methylprednisolone Sodium Succinate (Solu-Medrol) 80 mg IVPUSH Q12H [facility] Stop: 10/28/16 23:31 Last Admin: 10/29/16 00:29 Dose: 80 mg Pneumococcal Polyvalent Vaccine (Pneumovax 23) 0.5 ml IM .ONCE ONE Stop: 10/27/16 21:06 Potassium Chloride (Pharmacy To Dose - Potassium Replacement) 1 dose .XX ASDIRECTED [facility] Potassium Chloride (Klor-Con M20) 40 meq PO ONETIME ONE Stop: 10/27/16 17:29 Last Admin: 10/27/16 18:26 Dose: 40 meq Potassium Chloride (Klor-Con M20) 40 meq PO Q4H [facility] Stop: 10/28/16 12:16 Last Admin: 10/28/16 11:35 Dose: 40 meq Prednisone (Prednisone) 40 mg PO WITHBREAKFAST [facility] Stop: 10/30/16 08:01 Last Admin: 10/28/16 10:30 Dose: 40 mg Prednisone (Prednisone) 40 mg PO WITHBREAKFAST [facility] Stop: 10/31/16 07:01 Last Admin: 10/31/16 06:13 Dose: 40 mg *Q Meaningful Use (DIS) - VTE *Q VTE Criteria *Q: - Stroke *Q Stroke Criteria *Q: - AMI *Q AMI Criteria *Q:
[2016-10-31] MEDS ORDERED: Spironolactone 25 MG Tab PO SCH (11:30)
[2016-10-31 11:47] VITALS: BP 130/87
[2016-10-31] MEDS ORDERED: Diphtheria,Pertussis(Acell),Tetanus Vaccine 0.5 ML SDV IM ONE (13:00)
[2016-10-31] MEDS: cefTRIAXone 2 GM in Sodium Chloride 0.9% 100 ML IV SCH (13:21)
[2016-10-31] MEDS ORDERED: Famotidine 20 MG Tab PO SCH (21:00)
[2016-11-01] MEDS ORDERED: predniSONE 10 MG Tab PO SCH (07:00)
[2016-11-04] MEDS ORDERED: predniSONE 20 MG Tab PO SCH (07:00)
[2016-11-07] MEDS ORDERED: predniSONE 10 MG Tab PO SCH (07:00)
== END 2016-10-31 15:00 | disposition home or self-care (01) | DRG 554 ==
LOC: JD.ED 12:23 → JD.MS 15:39 → UNDOADMIN 15:39 → JD.MS 16:20 → UNDODISIN 10-31 15:00
PROVIDERS: ADMIT Internal Medicine; ATTEND Internal Medicine
PROC: 3E0234Z Introduction of Serum, Toxoid and Vaccine into Muscle, Percutaneous Approach (ICD-10-PCS; principal; 2016-10-31)
DX: M19.041 Primary osteoarthritis, right hand (principal); M10.9 Gout, unspecified; I10 Essential (primary) hypertension; D72.829 Elevated white blood cell count, unspecified; E78.00 Pure hypercholesterolemia, unspecified; E87.6 Hypokalemia; I25.10 Atherosclerotic heart disease of native coronary artery without angina pectoris; I12.9 Hypertensive chronic kidney disease with stage 1 through stage 4 chronic kidney disease, or unspecified chronic kidney disease; N18.3 Chronic kidney disease, stage 3 (moderate); R06.02 Shortness of breath; K59.09 Other constipation; M19.90 Unspecified osteoarthritis, unspecified site; D64.9 Anemia, unspecified; R41.3 Other amnesia; Z88.8 Allergy status to other drugs, medicaments and biological substances; Z79.82 Long term (current) use of aspirin; Z79.899 Other long term (current) drug therapy; Z87.891 Personal history of nicotine dependence; Z96.649 Presence of unspecified artificial hip joint; Z96.619 Presence of unspecified artificial shoulder joint; Z23 Encounter for immunization; E78.5 Hyperlipidemia, unspecified
CPT/HCPCS: 36415; 73130; 80053; 84550; 85025; 85652; 86140; 96372; 99285; J0696; J1170; 80048; 83735; 84560; 90715; 97112-GP; 97116-GP; 97161-GP; 97165-GO; 97530-GO; 99222; 99231; 99232; 99239; 99283; A9270-GY; J1885; J2930; J3475; J7030; J7040

== ENCOUNTER 2017-01-17 09:35 | Observation (INO) | payer MEDICARE, OTHER, BC ==
[2017-01-17] MEDS ORDERED: Sodium Chloride 0.9% 10 ML Syringe FLUSH PRN (10:11)
[2017-01-17] MEDS ORDERED: methylPREDNISolone Sodium Succinate 125 MG/2 ML SDV IVPUSH ONE (10:41)
--- NOTE | 2017-01-17 10:45 | EDM.PDOC ---
ED HPI GENERAL MEDICAL PROBLEM - General Chief Complaint: Upper Extremity Injury/Pain Stated Complaint: [facility] Time Seen by Provider: 01/17/17 09:57 Source of Information: Reports: Patient, EMS, RN Notes Reviewed - History of Present Illness INITIAL COMMENTS - FREE TEXT/NARRATIVE: 76-year-old male has been brought in by EMS with complaint of chills, generalized weakness, severe pain right hand and wrist and found to have low- grade fever upon admission to ED. Patient does live alone. He's been having difficulty with the right hand wrist discomfort for what sounds like at least a couple of months. Currently is receiving physical therapy for that. Is admitted over 2 months ago and from what I can learn from a brief look at that hospital record was diagnosed with gout, unsure if he had cellulitis at that time or not. He currently is not on antibiotics. He has been receiving physical therapy. The redness and swelling has been getting worse as well as worsening discomfort. He was given some IV fentanyl prior to arrival to ED. Still having fairly severe discomfort on arrival to ED. He denies chest pain cough or difficulty breathing. Denies abdominal pain nausea or vomiting. he does have history of hypertension. Allergies not diabetic. He is not currently taken antibiotics. He was on prednisone at some time previously but apparently not on steroid medication at this time. Right Wrist Pain Score (Numeric/FACES): 10 Right Shoulder Pain Score (Numeric/FACES): 10 Back Pain Score (Numeric/FACES): 10 - Related Data Allergies Allergy/AdvReac Type Severity Reaction Status Date / Time lisinopril Allergy Anaphylactic Verified 01/17/17 09:40 Shock Home Meds: Home Meds Aspirin [Halfprin] 81 mg PO DAILY 10/27/16 [History] Carvedilol [Coreg] 18.75 mg PO BID 10/27/16 [History] Fish Oil/[place]-3 Fatty Acids [Fish Oil 1,000 MG] 1,000 mg PO DAILY 10/27/16 [ History] Fluticasone Propionate [Flonase] 1 spray NASBOTH BID 10/27/16 [History] L.acidoph,Paracasei, B.lactis [Probiotic] 1 each PO DAILY 10/27/16 [History] Losartan [Cozaar] 100 mg PO DAILY 10/27/16 [History] Multivitamin W-Minerals/Lutein [Vision Plus Lutein Vitamin] 1 tab PO DAILY 10/27 [History] Potassium Chloride [Klor-Con M20] 20 meq PO BID 10/27/16 [History] Tamsulosin [Flomax] 0.4 mg PO DAILY 10/27/16 [History] amLODIPine [Norvasc] 10 mg PO DAILY 10/27/16 [History] Allopurinol [Zyloprim] 100 mg PO DAILY #30 tablet 10/31/16 [Rx] Cebria Memory Aid 1 cap PO DAILY 10/31/16 [History] Cephalexin [Keflex] 500 mg PO Q6HR #15 cap 10/31/16 [Rx] Docusate Sodium [Colace] 100 mg PO BID PRN #30 cap 10/31/16 [Rx] Famotidine [Pepcid] 20 mg PO BID #60 tablet 10/31/16 [Rx] Internal 911 Detox Pill 1 tab PO DAILY 10/31/16 [History] Prednisone [IJD: predniSONE] 20 mg PO WITHBREAKFAST #3 tablet 10/31/16 [Rx] Spironolactone [Aldactone] 12.5 mg PO DAILY #30 tablet 10/31/16 [Rx] predniSONE 10 mg PO WITHBREAKFAST #3 tablet 10/31/16 [Rx] predniSONE 30 mg PO WITHBREAKFAST #3 tablet 10/31/16 [Rx] traMADol [Ultram] 100 mg PO Q6H PRN #40 tablet 10/31/16 [Rx] Past Medical History HEENT History: Reports: Impaired Vision Other HEENT History: glasses Cardiovascular History: Reports: CAD, High Cholesterol, Hypertension Respiratory History: Reports: SOB Gastrointestinal History: Reports: Chronic Constipation Genitourinary History: Reports: BPH Musculoskeletal History: Reports: Osteoarthritis Neurological History: Reports: Other (See Below) Other Neuro History: memory loss Hematologic History: Reports: Anemia, Blood Transfusion(s) - Infectious Disease History Infectious Disease History: Reports: Chicken Pox, Measles, Mumps - Past Surgical History Musculoskeletal Surgical History: Reports: Hip Replacement, Shoulder Replacement Social & Family History - Family History Family Medical History: Noncontributory - Tobacco Use Smoking Status *Q: Never Smoker Years of Tobacco use: 5 Packs/Tins Daily: 0.5 Used Tobacco, but Quit: Yes Month Tobacco Last Used: 1996 Second Hand Smoke Exposure: No - Caffeine Use Caffeine Use: Reports: Coffee - Alcohol Use Days Per Week of Alcohol Use: 0 - Recreational Drug Use Recreational Drug Use: No Review of Systems - Review of Systems Review Of Systems: See Below Mouth/Throat: Reports: No Symptoms Respiratory: Denies: Shortness of Breath, Wheezing Cardiovascular: Denies: Chest Pain GI/Abdominal: Denies: Abdominal Pain, Nausea, Vomiting Musculoskeletal: Reports: Joint Pain (right hand and wrist) Skin: Reports: Erythema (dorsum of right hand and wrist), Other (pain with motion of right wrist joint) Neurological: Reports: Weakness (mild generalized). Denies: Numbness ED EXAM, GENERAL - Physical Exam Exam: See Below Eye Exam: Bilateral Eye: PERRL Throat/Mouth: Normal Inspection, Normal Oropharynx Head: Atraumatic. No: Facial Swelling Neck: Supple, Full Range of Motion Respiratory/Chest: No Respiratory Distress, Lungs Clear, Normal Breath Sounds Cardiovascular: Regular Rate, Rhythm GI/Abdominal: Soft, Non-Tender Extremities: Joint Swelling (there is mild swelling of the wrist joint), Limited Range of Motion (right wrist), Redness (there is erythema of the dorsum of his right hand and wrist), Other (tender dorsum of right hand, right wrist). No: Leg Pain Neurological: Oriented, No Motor/Sensory Deficits Skin Exam: Warm, Dry Course - Vital Signs Last Recorded V/S: Last Vital Signs Temp 100.2 F 01/17/17 09:40 Pulse 78 01/17/17 09:40 Resp 18 01/17/17 09:40 BP 145/89 H 01/17/17 09:40 Pulse Ox 94 L 01/17/17 09:40 - Orders/Labs/Meds Orders: Active Orders 24 hr Category Date Time Status Peripheral IV Care [RC] . DIRECTED Care 01/17/17 10:12 Active CULTURE BLOOD [BC] Stat Lab 01/17/17 11:20 Received Sodium Chloride 0.9% [Saline Flush] Med 01/17/17 10:11 Active 10 ml FLUSH ASDIRECTED PRN Peripheral IV Insertion Adult [OM.PC] Stat Oth 01/17/17 10:12 Ordered Medication Orders Acetaminophen (Tylenol) 650 mg PO Q4H PRN PRN Reason: Pain (Mild 1-3)/fever Hydrocodone Bitart/Acetaminophen ([place] 325-5 Mg) 1 tab PO Q4H PRN PRN Reason: Pain (moderate 4-6) Albuterol/Ipratropium (Duoneb 3.0-0.5 Mg/3 Ml) 3 ml NEB Q4H PRN PRN Reason: Shortness Of Breath/wheezing Bisacodyl (Dulcolax) 5 mg PO DAILY PRN PRN Reason: Constipation Docusate Sodium (Colace) 100 mg PO BID PRN PRN Reason: Constipation Enoxaparin Sodium (Lovenox) 40 mg SUBCUT DAILY ARIELLE Hydromorphone HCl (Dilaudid) 0.25 mg IVPUSH Q2H PRN PRN Reason: Pain (severe 7-10) Sodium Chloride (Normal Saline) 1,000 mls @ 125 mls/hr IV ASDIRECTED [facility] Stop: 01/18/17 23:14 Levofloxacin/Dextrose 750 mg/ (Premix) 150 mls @ 100 mls/hr IV Q24H ARIELLE Vancomycin HCl 1 gm/ Sodium (Chloride) 250 mls @ 250 mls/hr IV Q12H ARIELLE Magnesium Hydroxide (Milk Of Magnesia) 30 ml PO Q12H PRN PRN Reason: Constipation Ondansetron HCl (Zofran Odt) 4 mg PO Q6H PRN PRN Reason: nausea, able to take PO Ondansetron HCl (Zofran) 4 mg IV Q6H PRN PRN Reason: Nausea/Vomiting Pantoprazole Sodium (Protonix) 40 mg PO DAILY ARIELLE Polyethylene Glycol (Miralax) 17 gm PO DAILY PRN PRN Reason: Constipation Senna/Docusate Sodium (Senna Plus) 1 tab PO BID PRN PRN Reason: Constipation Sodium Chloride (Saline Flush) 10 ml FLUSH ASDIRECTED PRN PRN Reason: Keep Vein Open Last Admin: 01/17/17 10:21 Dose: 10 ml Temazepam (Restoril) 15 mg PO BEDTIME PRN PRN Reason: Sleep Labs: Laboratory Tests 01/17/17 01/17/17 01/17/17 Range/Units 10:35 10:35 10:35 WBC (4.23-9.07) K/mm3 RBC (4.63-6.08) M/mm3 Hgb (13.7-17.5) gm/L Hct (40.1-51.0) % MCV (79.0-92.2) fl MCH (25.7-32.2) pg MCHC (32.2-35.5) g/dl RDW Std Deviation (35.1-43.9) fL Plt Count (163-337) K/mm3 MPV (9.4-12.3) fl Neut % (Auto) (34.0-67.9) % Lymph % (Auto) (21.8-53.1) % [place] % (Auto) (5.3-12.2) % Eos % (Auto) (0.8-7.0) Baso % (Auto) (0.1-1.2) % Neut # (Auto) (1.78-5.38) K/mm3 Lymph # (Auto) (1.32-3.57) K/mm3 [place] # (Auto) (0.30-0.82) K/mm3 Eos # (Auto) (0.04-0.54) K/mm3 Baso # (Auto) (0.01-0.08) K/mm3 Manual Slide Review ESR 105 H (0-15) mm/hr Sodium 141 (136-145) mEq/L Potassium 3.3 L (3.5-5.1) mEq/L Chloride 106 (98-107) mEq/L Carbon Dioxide 27 (21-32) mEq/L Anion Gap 11.3 (5-15) BUN 27 H (7-18) mg/dL Creatinine 1.4 H (0.7-1.3) mg/dL Est Cr Clr Drug Dosing 49.94 mL/min Estimated GFR (MDRD) 49 (>60) mL/min BUN/Creatinine Ratio 19.3 H (14-18) Glucose 126 H (83-115) mg/dL Uric Acid (3.5-7.2) mg/dL Calcium 9.4 (8.5-10.1) mg/dL Total Bilirubin 0.7 (0.2-1.0) mg/dL AST 15 (15-37) U/L ALT 14 L (16-63) U/L Alkaline Phosphatase 47 (46-116) U/L C-Reactive Protein 16.8 H* (<1.0) mg/dL Total Protein 7.0 (6.4-8.2) g/dl Albumin 2.8 L (3.4-5.0) g/dl Globulin 4.2 gm/dL Albumin/Globulin Ratio 0.7 L (1-2) 01/17/17 01/17/17 Range/Units 10:35 10:35 WBC 10.17 H (4.23-9.07) K/mm3 RBC 3.88 L (4.63-6.08) M/mm3 Hgb 12.1 L (13.7-17.5) gm/L Hct 35.3 L (40.1-51.0) % MCV 91.0 (79.0-92.2) fl MCH 31.2 (25.7-32.2) pg MCHC 34.3 (32.2-35.5) g/dl RDW Std Deviation 41.3 (35.1-43.9) fL Plt Count 200 (163-337) K/mm3 MPV 9.2 L (9.4-12.3) fl Neut % (Auto) 72.0 H (34.0-67.9) % Lymph % (Auto) 11.3 L (21.8-53.1) % [place] % (Auto) 15.8 H (5.3-12.2) % Eos % (Auto) 0.2 L (0.8-7.0) Baso % (Auto) 0.3 (0.1-1.2) % Neut # (Auto) 7.32 H (1.78-5.38) K/mm3 Lymph # (Auto) 1.15 L (1.32-3.57) K/mm3 [place] # (Auto) 1.61 H (0.30-0.82) K/mm3 Eos # (Auto) 0.02 L (0.04-0.54) K/mm3 Baso # (Auto) 0.03 (0.01-0.08) K/mm3 Manual Slide Review Normal smear ESR (0-15) mm/hr Sodium (136-145) mEq/L Potassium (3.5-5.1) mEq/L Chloride (98-107) mEq/L Carbon Dioxide (21-32) mEq/L Anion Gap (5-15) BUN (7-18) mg/dL Creatinine (0.7-1.3) mg/dL Est Cr Clr Drug Dosing mL/min Estimated GFR (MDRD) (>60) mL/min BUN/Creatinine Ratio (14-18) Glucose (83-115) mg/dL Uric Acid 5.6 (3.5-7.2) mg/dL Calcium (8.5-10.1) mg/dL Total Bilirubin (0.2-1.0) mg/dL AST (15-37) U/L ALT (16-63) U/L Alkaline Phosphatase (46-116) U/L C-Reactive Protein (<1.0) mg/dL Total Protein (6.4-8.2) g/dl Albumin (3.4-5.0) g/dl Globulin gm/dL Albumin/Globulin Ratio (1-2) Meds: Medications Generic Name Dose Route Start Last Admin Trade Name Freq PRN Reason Stop Dose Admin Acetaminophen 650 mg 01/17/17 15:11 Tylenol PO Q4H PRN Pain (Mild 1-3)/fever Hydrocodone Bitart/Acetaminophen 1 tab 01/17/17 15:11 [place] 325-5 Mg PO Q4H PRN Pain (moderate 4-6) Albuterol/Ipratropium 3 ml 01/17/17 15:11 Duoneb 3.0-0.5 Mg/3 Ml NEB Q4H PRN Shortness Of Breath/wheezing Bisacodyl 5 mg 01/17/17 15:11 Dulcolax PO DAILY PRN Constipation Docusate Sodium 100 mg 01/17/17 15:11 Colace PO BID PRN Constipation Enoxaparin Sodium 40 mg 01/17/17 15:15 Lovenox SUBCUT DAILY [facility] Hydromorphone HCl 0.25 mg 01/17/17 15:11 Dilaudid IVPUSH Q2H PRN Pain (severe 7-10) Sodium Chloride 1,000 mls @ 125 mls/hr 01/17/17 15:15 Normal Saline IV 01/18/17 23:14 ASDIRECTED [facility] Levofloxacin/Dextrose 750 mg/ 150 mls @ 100 mls/hr 01/17/17 15:45 Premix IV Q24H ARIELLE Vancomycin HCl 1 gm/ Sodium 250 mls @ 250 mls/hr 01/17/17 15:45 Chloride IV Q12H ARIELLE Magnesium Hydroxide 30 ml 01/17/17 15:11 Milk Of Magnesia PO Q12H PRN Constipation Ondansetron HCl 4 mg 01/17/17 15:11 Zofran Odt PO Q6H PRN nausea, able to take PO Ondansetron HCl 4 mg 01/17/17 15:11 Zofran IV Q6H PRN Nausea/Vomiting Pantoprazole Sodium 40 mg 01/17/17 15:30 Protonix PO DAILY ARIELLE Polyethylene Glycol 17 gm 01/17/17 15:11 Miralax PO DAILY PRN Constipation Senna/Docusate Sodium 1 tab 01/17/17 15:11 Senna Plus PO BID PRN Constipation Sodium Chloride 10 ml 01/17/17 10:11 01/17/17 10:21 Saline Flush FLUSH 10 ml ASDIRECTED PRN Administration Keep Vein Open Temazepam 15 mg 01/17/17 15:11 Restoril PO BEDTIME PRN Sleep Discontinued Medications Generic Name Dose Route Start Last Admin Trade Name Freq PRN Reason Stop Dose Admin Piperacillin Sod/Tazobactam 100 mls @ 200 mls/hr 01/17/17 13:41 01/17/17 13: 52 Sod 4.5 gm/ Sodium Chloride IV 01/17/17 14:10 200 mls/hr ONETIME ONE Administration Methylprednisolone Sodium Succinate 125 mg 01/17/17 10:41 01/17/17 10:59 Solu-Medrol IVPUSH 01/17/17 10:42 125 mg ONETIME ONE Administration - Re-Assessments/Exams Free Text/Narrative Re-Assessment/Exam: 01/17/17 14:00. labs have come back as documented. White blood count very mildly elevated, C-reactive protein is elevated, sedimentation rate about 105. He did present also with low-grade fever. Blood culture 1 was obtained. We'll start some IV Zosyn. 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, possible recurrent gout Departure - Departure Time of Disposition: 13:27 Disposition: Admitted As Inpatient 65 Condition: Fair Clinical Impression: Cellulitis Qualifiers: Site of cellulitis of extremity: upper extremity Laterality: right Gout attack Qualifiers: Gout site: wrist Gout etiology: unspecified cause - Discharge Information ED Communication - Discussed Case With (1) Discussed Case With (1): Admitting Provider (Discussed with Dr Strong,decision to admit at about 13:30.) - My Orders Last 24 Hours: My Active Orders 01/17/17 10:11 Sodium Chloride 0.9% [Saline Flush] 10 ml FLUSH ASDIRECTED PRN 01/17/17 10:12 Peripheral IV Care [RC] . DIRECTED Peripheral IV Insertion Adult [OM.PC] Stat 01/17/17 11:20 CULTURE BLOOD [BC] Stat - Assessment/Plan Last 24 Hours: My Active Orders 01/17/17 10:11 Sodium Chloride 0.9% [Saline Flush] 10 ml FLUSH ASDIRECTED PRN 01/17/17 10:12 Peripheral IV Care [RC] . DIRECTED Peripheral IV Insertion Adult [OM.PC] Stat 01/17/17 11:20 CULTURE BLOOD [BC] Stat
[2017-01-17] MEDS ORDERED: Piperacillin/Tazobactam 4.5 GM in Sodium Chloride 0.9% 100 ML IV ONE (13:41)
--- NOTE | 2017-01-17 14:28 | PCM.HP ---
<Talib Johnston - Last Filed: 01/17/17 17:13> H&P History of Present Illness - General Date of Service: 01/17/17 Admit Problem/Dx: Gout pain Source of Information: Patient, Old Records, Provider, RN History Limitations: Reports: No Limitations - History of Present Illness Initial Comments - Free Text/Narative: Mr. Matt Garcia is a 76 year old male who was brought to our ED today via EMS with a complaint of chills, generalized weakness, and severe right hand and wrist pain. His found to have a low-grade fever of 100.2 in the ED. He lives alone. It appears he has been doing with the symptoms for multiple months. Has seen Dr. Mcnamara and Dr. Alvarez for this in our clinic. He has been undergoing PT treatment in our facility as well. Patient reports his treatment was helping and "it was almost all gone." He now reports worsening discomfort, redness, and swelling. He was admitted for similar symptoms in his right hand in the past and diagnosed with gout. Labs were obtained in the ED. ESR was high at 105. Potassium is low at 3.3. Anion gap is 11.3. BUN is high at 27 and creatinine is high at 1.4. EGFR is 49. Glucose high at 126. Uric acid normal at 5.6 and calcium is normal at 9.4. CRP was 16.8. Albumin low at 2.8. He did have a white count at 10.17 and neutrophils were high at 72. He was global was low at 12.1. He was started on Zosyn in the ED and given Solu-Medrol 125 mg IV push. Blood cultures 1 were obtained. He was subsequently admitted to observation on the floor. He is a full code. His primary care provider is DIOR Jiménez. Onset of Symptoms: Reports: Gradual Duration of Symptoms: Reports: Getting Worse Location: Reports: Neck, Back, Lower Extremity, Right, Generalized Right Wrist Pain Score (Numeric/FACES): 10 Right Shoulder Pain Score (Numeric/FACES): 10 Back Pain Score (Numeric/FACES): 10 - Related Data Allergies/Adverse Reactions: Allergies Allergy/AdvReac Type Severity Reaction Status Date / Time lisinopril Allergy Anaphylactic Verified 01/17/17 09:40 Shock Home Medications: Home Meds Aspirin [Halfprin] 81 mg PO DAILY 10/27/16 [History] Carvedilol [Coreg] 18.75 mg PO BID 10/27/16 [History] Fish Oil/[place]-3 Fatty Acids [Fish Oil 1,000 MG] 1,000 mg PO DAILY 10/27/16 [ History] Fluticasone Propionate [Flonase] 1 spray NASBOTH BID 10/27/16 [History] L.acidoph,Paracasei, B.lactis [Probiotic] 1 each PO DAILY 10/27/16 [History] Losartan [Cozaar] 100 mg PO DAILY 10/27/16 [History] Multivitamin W-Minerals/Lutein [Vision Plus Lutein Vitamin] 1 tab PO DAILY 10/27 [History] Potassium Chloride [Klor-Con M20] 20 meq PO BID 10/27/16 [History] Tamsulosin [Flomax] 0.4 mg PO DAILY 10/27/16 [History] amLODIPine [Norvasc] 10 mg PO DAILY 10/27/16 [History] Allopurinol [Zyloprim] 100 mg PO DAILY #30 tablet 10/31/16 [Rx] Cebria Memory Aid 1 cap PO DAILY 10/31/16 [History] Cephalexin [Keflex] 500 mg PO Q6HR #15 cap 10/31/16 [Rx] Docusate Sodium [Colace] 100 mg PO BID PRN #30 cap 10/31/16 [Rx] Famotidine [Pepcid] 20 mg PO BID #60 tablet 10/31/16 [Rx] Internal 911 Detox Pill 1 tab PO DAILY 10/31/16 [History] Prednisone [IJD: predniSONE] 20 mg PO WITHBREAKFAST #3 tablet 10/31/16 [Rx] Spironolactone [Aldactone] 12.5 mg PO DAILY #30 tablet 10/31/16 [Rx] predniSONE 10 mg PO WITHBREAKFAST #3 tablet 10/31/16 [Rx] predniSONE 30 mg PO WITHBREAKFAST #3 tablet 10/31/16 [Rx] traMADol [Ultram] 100 mg PO Q6H PRN #40 tablet 10/31/16 [Rx] Past Medical History HEENT History: Reports: Impaired Vision Other HEENT History: glasses Cardiovascular History: Reports: CAD, High Cholesterol, Hypertension Respiratory History: Reports: SOB Gastrointestinal History: Reports: Chronic Constipation Genitourinary History: Reports: BPH Musculoskeletal History: Reports: Osteoarthritis Neurological History: Reports: Other (See Below) Other Neuro History: memory loss Hematologic History: Reports: Anemia, Blood Transfusion(s) - Infectious Disease History Infectious Disease History: Reports: Chicken Pox, Measles, Mumps - Past Surgical History Musculoskeletal Surgical History: Reports: Hip Replacement, Shoulder Replacement Social & Family History - Family History Family Medical History: Noncontributory - Tobacco Use Smoking Status *Q: Never Smoker Years of Tobacco use: 5 Packs/Tins Daily: 0.5 Used Tobacco, but Quit: Yes Month Tobacco Last Used: 1996 Second Hand Smoke Exposure: No - Caffeine Use Caffeine Use: Reports: Coffee - Alcohol Use Days Per Week of Alcohol Use: 0 - Recreational Drug Use Recreational Drug Use: No H&P Review of Systems - Review of Systems: Review Of Systems: See Below Free Text/Narrative: Patient is a very poor historian. General: Reports: Night Sweats. Denies: Fever, Chills, Malaise, Weakness, Decreased Appetite, Weight Loss, Weight Gain HEENT: Reports: Headaches (mild with mild photophobia ). Denies: Ear Pain, Eye Pain, Glasses, Sinus Congestion, Sore Throat, Visual Changes Pulmonary: Denies: Shortness of Breath, Wheezing, Pleuritic Chest Pain, Cough, Sputum Cardiovascular: Reports: Edema (mild bilateral legs ). Denies: Chest Pain, Palpitations, Dyspnea on Exertion, Lightheadedness, Syncope Gastrointestinal: Reports: Constipation (chronic but no problems currently ). Denies: Abdominal Pain, Bloody Stool, Diarrhea Genitourinary: Denies: Dysuria, Frequency, Pain, Urgency Musculoskeletal: Reports: Neck Pain, Shoulder Pain (right), Arm Pain (right), Back Pain, Hand Pain (right), Leg Pain, Foot Pain, Joint Pain, Joint Swelling. Denies: Muscle Pain, Muscle Stiffness Skin: Reports: Erythema (right wrist ). Denies: Cyanosis, Jaundice, Diaphoresis , Dryness, Pruritis Psychiatric: Denies: Confusion, Depression, Anxiety Neurological: Reports: Headache, Difficulty Walking (due to pain), Gait Disturbance. Denies: Confusion, Dizziness, Numbness, Trouble Speaking, Weakness , Change in Speech Hematologic/Lymphatic: Reports: No Symptoms Immunologic: Reports: No Symptoms Exam - Exam Exam: See Below - Vital Signs Vital Signs: Last Vital Signs Temp 100.2 F 01/17/17 09:40 Pulse 78 01/17/17 09:40 Resp 18 01/17/17 09:40 BP 145/89 H 01/17/17 09:40 Pulse Ox 94 L 01/17/17 09:40 Weight: 97.522 kg - Exam Quality Assessment: DVT Prophylaxis General: Alert, Oriented, Cooperative. No: Mild Distress HEENT: Conjunctiva Clear, EACs Clear, EOMI, Hearing Intact, Mucosa Moist & [place] , Nares Patent, Posterior Pharynx Clear, Pupils Equal, Pupils Reactive, TMs Clear Neck: Supple, Trachea Midline. No: Full Range of Motion (Decreased range of motion due to pain), JVD, Thyromegaly Lungs: Clear to Auscultation, Normal Respiratory Effort. No: Crackles, Rales, Wheezing Cardiovascular: Regular Rate, Regular Rhythm GI/Abdominal Exam: Normal Bowel Sounds, Soft, Non-Tender, No Organomegaly, No Distention, No Abnormal Bruit, No Mass (Male) Exam: Deferred Rectal (Males) Exam: Deferred Back Exam: Normal Inspection, Decreased Range of Motion. No: Muscle Spasm, Paraspinal Tenderness, Vertebral Tenderness (pain on movement ) Extremities: Normal Inspection, Normal Capillary Refill, Pedal Edema (1+), Limited Range of Motion (difficulty moving due to pain). No: Normal Range of Motion Peripheral Pulses: 2+: Radial (L), Radial (R), Posterior Tibial (L), Posterior Tibial (R), Dorsalis Pedis (L), Dorsalis Pedis (R) Skin: Warm, Dry, Intact Neurological: Cranial Nerves Intact, Strength Equal Bilateral, Normal Speech, Normal Tone, Sensation Intact, Abnormal Gait. No: Normal Gait Neuro Extensive - Mental Status: Alert, Oriented x3, Normal Mood/Affect, Normal Cognition, Other (Poor historian. Difficult to get solid answers to questions however was alert and orientated x3.) Neuro Extensive - Motor, Sensory, Reflexes: CN II-XII Intact (grossly), Abnormal Gait (due to pain). No: Tongue Deviation (R), Expressive Aphasia, Total Aphasia Psychiatric: Alert, Normal Affect, Normal Mood. No: Labile Mood, Depressed, Agitated Physical Exam Comments:: Physical exam was hindered slightly by patient reports of pain. - Patient Data Result Diagrams: 01/17/17 10:35 01/17/17 10:35 *Q Meaningful Use (ADM) - VTE *Q VTE Criteria *Q: - Stroke *Q Stroke Criteria *Q: - AMI *Q AMI Criteria *Q: - Problem List (1) Back pain SNOMED Code(s): 079567688 ICD Code: M54.9 - DORSALGIA, UNSPECIFIED Status: Acute Priority: High Current Visit: Yes QualifierTitle: Back pain location: thoracic back pain Chronicity: acute Back pain laterality: midline Qualified Code(s): M54.6 - Pain in thoracic spine (2) Cervical spine pain SNOMED Code(s): 234690926 ICD Code: M54.2 - CERVICALGIA Status: Acute Priority: High Current Visit: Yes (3) Right shoulder pain SNOMED Code(s): 78486365, 10227189 ICD Code: M25.511 - PAIN IN RIGHT SHOULDER Status: Acute Priority: High Current Visit: Yes QualifierTitle: Chronicity: chronic Qualified Code(s): M25.511 - Pain in right shoulder; G89.29 - Other chronic pain (4) Joint inflammation of right hand and wrist SNOMED Code(s): 038740468, 717229418, 809933835 ICD Code: M19.90 - UNSPECIFIED OSTEOARTHRITIS, UNSPECIFIED SITE Status: Acute Priority: High Current Visit: Yes (5) Acute kidney injury SNOMED Code(s): 92755681 ICD Code: N17.9 - ACUTE KIDNEY FAILURE, UNSPECIFIED Status: Acute Priority: High Current Visit: Yes Problem List Initiated/Reviewed/Updated: Yes Orders Last 24hrs: Medication Orders Sodium Chloride (Saline Flush) 10 ml FLUSH ASDIRECTED PRN PRN Reason: Keep Vein Open Last Admin: 01/17/17 10:21 Dose: 10 ml Assessment/Plan Comment:: I/P Acute: Inflammation and pain of right hand and joint -Risks: previous gout dx, Low fluid intake -Has been seen by ortho and primary care for this in the past - dx'ed with gout -Has been working with PT for prior symptoms -Pt. reports he was doing well and recovering until recently -Erythema and pain in wrist and hand -Elevated ESR (105) and CRP (16.8) -Uric acid normal at 5.6 -Calcium normal at 9.4 -WBC slightly elevated at 10.17 -Vancomycin and levaquin started -Ibuprofen 600 TID -Blood cultures obtained Right shoulder pain -Has been evaluated in past for this -Pt. reports was improving with PT until recently -Denies recent trauma -Look for underlying cause Neck pain -New onset -Denies recent trauma -Aggravated by movement -c-spine x-ray ordered, pending read -Look for underlying cause Back pain -New onset lumbar and thoracic pain -Denies recent trauma -Aggravated by movement -Thoracic and lumbar x-rays ordered, pending read -Look for underlying cause Acute kidney injury - Stage 3 - Likely 2/2 dehydration - Baseline from current records shows eGFR around 60, today 49 - Creatinine elevated at 1.4 - BUN elevated at 27 - Will increase fluids and look for response - Avoid nephrotoxic medications if possible Chronic: BPH Constipation GERD HTN Insomnia Memory loss Arthritis Gouty arthritis Former smoker Plan: Admit as inpatient CM/SW for discharge planning Spiritual care consult PT/OT Trucker Hand consult for purine avoidance DVT/PVD prophylaxis GI prophylaxis Other orders as indicated above Full code <Radha Strong T - Last Filed: 01/17/17 19:33> H&P History of Present Illness - General Admit Problem/Dx: Admission Diagnosis/Problem Admission Diagnosis/Problem Gout Exam - Vital Signs Vital Signs: Last Vital Signs Temp 36.0 C 01/17/17 16:11 Pulse 83 01/17/17 16:46 Resp 16 01/17/17 16:11 BP 117/82 01/17/17 16:46 Pulse Ox 94 L 01/17/17 17:38 - Patient Data Lab Results Last 24 hrs: Laboratory Results - last 24 hr 01/17/17 01/17/17 Range/Units 16:05 16:05 Lactic Acid 1.3 (0.4-2.0) mmol/L Triglycerides 36 (<150) mg/dL Cholesterol 156 (<200) mg/dL LDL Cholesterol Direct 97 (<100) mg/dL HDL Cholesterol 60.0 H (40-59) mg/dL Result Diagrams: 01/17/17 10:35 01/17/17 10:35 *Q Meaningful Use (ADM) - VTE *Q VTE Criteria *Q: - Stroke *Q Stroke Criteria *Q: - AMI *Q AMI Criteria *Q: Problem List Initiated/Reviewed/Updated: Yes Orders Last 24hrs: Active Orders 24 hr Category Date Time Status Patient Status [ADT] Routine ADT 01/17/17 16:56 Active Oxygen Therapy [RC] PRN Care 01/17/17 16:56 Active VTE/DVT Education [RC] PER UNIT ROUTINE Care 01/17/17 16:56 Active ESR [SEDIMENTATION RATE AUTO] [HEME] AM Lab 01/18/17 05:11 Ordered RHEUMATOID FACTOR SCREEN [CHEM] Stat Lab 01/17/17 11:20 Received URIC ACID, URINE Stat Lab 01/17/17 19:31 Ordered Ibuprofen [Motrin] Med 01/17/17 16:00 Active 600 mg PO Q8H Levofloxacin/Dextrose 5%-Water [Levaquin in D5W 750 MG/ Med 01/17/17 16:00 Active 150 ML] 750 mg Premix Bag 1 bag IV Q24H Magnesium Rep Pharmacy to Dose [Pharmacy to Dose - Med 01/17/17 17:15 Ordered Magnesium Replacement] 1 dose .XX ASDIRECTED Metoprolol Tartrate [Lopressor] Med 01/17/17 15:42 Active 5 mg IVPUSH Q6H PRN Pantoprazole [ProTONIX] Med 01/17/17 15:30 Active 40 mg PO DAILY Potassium Rep Pharmacy to Dose [Pharmacy to Dose - Med 01/17/17 17:15 Ordered Potassium Replacement] 1 dose .XX ASDIRECTED Vancomycin 1 gm Med 01/17/17 16:00 Active Sodium Chloride 0.9% [Normal Saline] 250 ml IV Q12H hydrALAZINE [Apresoline] Med 01/17/17 15:41 Active 20 mg IVPUSH Q4H PRN Medication Orders Acetaminophen (Tylenol) 650 mg PO Q4H PRN PRN Reason: Pain (Mild 1-3)/fever Hydrocodone Bitart/Acetaminophen ([place] 325-5 Mg) 1 tab PO Q4H PRN PRN Reason: Pain (moderate 4-6) Albuterol/Ipratropium (Duoneb 3.0-0.5 Mg/3 Ml) 3 ml NEB Q4H PRN PRN Reason: Shortness Of Breath/wheezing Bisacodyl (Dulcolax) 5 mg PO DAILY PRN PRN Reason: Constipation Docusate Sodium (Colace) 100 mg PO BID PRN PRN Reason: Constipation Enoxaparin Sodium (Lovenox) 40 mg SUBCUT Q24H [facility] Last Admin: 01/17/17 17:29 Dose: 40 mg Hydralazine HCl (Apresoline) 20 mg IVPUSH Q4H PRN PRN Reason: Hypertension Hydromorphone HCl (Dilaudid) 0.25 mg IVPUSH Q2H PRN PRN Reason: Pain (severe 7-10) Sodium Chloride (Normal Saline) 1,000 mls @ 125 mls/hr IV ASDIRECTED [facility] Stop: 01/18/17 23:14 Last Admin: 01/17/17 17:12 Dose: 125 mls/hr Levofloxacin/Dextrose 750 mg/ (Premix) 150 mls @ 100 mls/hr IV Q24H [facility] Last Admin: 01/17/17 17:12 Dose: 100 mls/hr Vancomycin HCl 1 gm/ Sodium (Chloride) 250 mls @ 250 mls/hr IV Q12H [facility] Ibuprofen (Motrin) 600 mg PO Q8H [facility] Last Admin: 01/17/17 17:17 Dose: 600 mg Magnesium Hydroxide (Milk Of Magnesia) 30 ml PO Q12H PRN PRN Reason: Constipation Magnesium Sulfate (Pharmacy To Dose - Magnesium Replacement) 1 dose .XX ASDIRECTED [facility] Metoprolol Tartrate (Lopressor) 5 mg IVPUSH Q6H PRN PRN Reason: Tachycardia Ondansetron HCl (Zofran Odt) 4 mg PO Q6H PRN PRN Reason: nausea, able to take PO Ondansetron HCl (Zofran) 4 mg IV Q6H PRN PRN Reason: Nausea/Vomiting Pantoprazole Sodium (Protonix) 40 mg PO DAILY [facility] Last Admin: 01/17/17 17:29 Dose: 40 mg Polyethylene Glycol (Miralax) 17 gm PO DAILY PRN PRN Reason: Constipation Potassium Chloride (Pharmacy To Dose - Potassium Replacement) 1 dose .XX ASDIRECTED [facility] Senna/Docusate Sodium (Senna Plus) 1 tab PO BID PRN PRN Reason: Constipation Sodium Chloride (Saline Flush) 10 ml FLUSH ASDIRECTED PRN PRN Reason: Keep Vein Open Last Admin: 01/17/17 10:21 Dose: 10 ml Temazepam (Restoril) 15 mg PO BEDTIME PRN PRN Reason: Sleep Assessment/Plan Comment:: Patient seen and examined at bedside. His pain is much better. Ordered additional labs.
[2017-01-17] MEDS ORDERED: Docusate Sodium 100 MG Cap PO PRN (15:11)
[2017-01-17] MEDS ORDERED: Ondansetron 4 MG/2 ML SDV IV PRN (15:11)
[2017-01-17] MEDS ORDERED: Polyethylene Glycol 3350 Powder 17 GM Packet PO PRN (15:11)
[2017-01-17] MEDS ORDERED: Magnesium Hydroxide 400 MG/5 ML Susp 30 ML Cup PO PRN (15:11)
[2017-01-17] MEDS ORDERED: Albuterol/Ipratropium 3.0-0.5 MG/3 ML Neb Soln NEB PRN (15:11)
[2017-01-17] MEDS ORDERED: Ondansetron 4 MG Tab.DIS PO PRN (15:11)
[2017-01-17] MEDS ORDERED: HYDROmorphone 1 MG/ML Syringe IVPUSH PRN (15:11)
[2017-01-17] MEDS ORDERED: Acetaminophen 325 MG Tab PO PRN (15:11)
[2017-01-17] MEDS ORDERED: Temazepam 15 MG Cap PO PRN (15:11)
[2017-01-17] MEDS ORDERED: Bisacodyl 5 MG Tab PO PRN (15:11)
[2017-01-17] MEDS ORDERED: Acetaminophen/HYDROcodone 325-5 MG Tab PO PRN (15:11)
[2017-01-17] MEDS ORDERED: hydrALAZINE 20 MG/ML SDV IVPUSH PRN (15:41)
[2017-01-17] MEDS ORDERED: Metoprolol Tartrate 5 MG/5 ML SDV IVPUSH PRN (15:42)
[2017-01-17] MEDS ORDERED: Levofloxacin/Dextrose 5%-Water 750 MG in Premix Bag 1 BAG IV SCH (16:00)
--- NOTE | 2017-01-17 16:50 | CR ---
Right hand: 2 views of the right hand were obtained. Comparison: Previous right hand exam of 10/27/16. Joint space narrowing is seen within the third MCP joint. Mild joint space narrowing is noted within the DIP joints. No acute fracture or other bony abnormality is seen. Vascular calcification is seen within the wrist. Slight chondrocalcinosis is seen within the triangular fibrocartilage. Impression: 1. Mild degenerative change as noted above. Slight chondrocalcinosis and mild vascular calcification is noted in. 2. 2 view right hand exam is otherwise unremarkable. No significant change is seen from prior study. Diagnostic code #2
--- NOTE | 2017-01-17 16:52 | CR ---
Cervical spine: Crosstable lateral, AP and odontoid views of the cervical spine were obtained. Limitations: Lower cervical spine not well seen due to the patient's overlapping shoulders. Cervical spine is seen only down to C5 on the lateral view. Vertebral body heights are maintained. Mild disc space narrowing is seen at C5-C6. Prevertebral soft tissues are normal. Minimal anterior endplate osteophytes are noted at C4-C5 and C5-C6. Mild scattered degenerative change within the apophyseal joints is seen. No acute fracture or other abnormality is appreciated. Impression: 1. Less than optimal study as described above. Minimal degenerative change is seen. No additional abnormality is identified. Diagnostic code #2
--- NOTE | 2017-01-17 16:52 | CR ---
Lumbar spine: AP, lateral and additional lateral view centered to the thoracolumbar junction were obtained. Diffuse disc space narrowing within the visualized thoracic spine is seen. Disc space narrowing is noted at T12-L1, L1-L2 and L2-3 as well as posterior to L3-L4 and L4-L5. Mild disc space narrowing at L5-S1 is noted. Mild spondylolisthesis noted at L4-L5 most likely due to degenerative apophyseal change. Vacuum disc phenomena is seen within the L1-2, L2-3 and L3-L4 discs. Scattered anterior endplate osteophytes and lateral osteophytes are seen. Impression: 1. Diffuse degenerative change as described above. Diagnostic code #2
--- NOTE | 2017-01-17 16:52 | CR ---
Thoracic spine: AP, lateral and swimmer's views of the thoracic spine were obtained. Lower cervical spine is better seen on the swimmer's view than on cervical spine study. This swimmer's view shows mild disc space narrowing at C6-C7 and C7-T1. Anterior osteophytes are seen within the lower cervical spine. Mild scoliosis is seen within the thoracic spine. Diffuse disc space narrowing is noted within the thoracic spine with scattered endplate osteophytes being seen both anterior and laterally. No discrete fracture or abnormal subluxation is seen. Impression: 1. Degenerative change as noted above. Minimal thoracic scoliosis. Diagnostic code #2
[2017-01-17] MEDS: Sodium Chloride 0.9% 1,000 ML IV SCH (17:12)
[2017-01-17] MEDS: Ibuprofen 600 MG Tab PO SCH (17:17)
[2017-01-17] MEDS: Enoxaparin 40 MG/0.4 ML Syringe SUBCUT SCH (17:29)
[2017-01-17] MEDS: Pantoprazole 40 MG Tab.CR PO SCH (17:29)
[2017-01-17] MEDS: Potassium Chloride 10 MEQ in Premix Bag 1 BAG IV SCH ×2 (21:08→22:10)
[2017-01-18] MEDS: Ibuprofen 600 MG Tab PO SCH ×3 (01:47→15:14)
[2017-01-18] MEDS: Sodium Chloride 0.9% 1,000 ML IV SCH (01:47)
[2017-01-18] MEDS ORDERED: Pantoprazole 40 MG Tab.CR PO SCH (07:00)
[2017-01-18] MEDS ORDERED: HYDROmorphone 0.5 MG/0.5 ML Syringe IVPUSH PRN (07:33)
--- NOTE | 2017-01-18 08:34 | PCM.PN ---
- General Info Date of Service: 01/18/17 Admission Dx/Problem (Free Text): Admission Diagnosis/Problem Admission Diagnosis/Problem Gout Functional Status: Reports: Pain Controlled, Ambulating, Urinating. Denies: New Symptoms - Review of Systems General: Reports: No Symptoms. Denies: Fever, Weakness, Fatigue HEENT: Reports: Other ("loosing voice"). Denies: Sore Throat, Visual Changes Pulmonary: Denies: Shortness of Breath, Pleuritic Chest Pain, Wheezing Cardiovascular: Denies: Chest Pain, Palpitations Gastrointestinal: Denies: Abdominal Pain, Constipation, Diarrhea, Difficulty Swallowing Genitourinary: Reports: No Symptoms Musculoskeletal: Reports: Neck Pain (mild), Shoulder Pain (right baseline ), Hand Pain, Back Pain (mild), Joint Pain Skin: Reports: No Symptoms Neurological: Reports: Confusion. Denies: Dizziness, Trouble Speaking, Difficulty Walking, Gait Disturbance Psychiatric: Reports: Confusion. Denies: Depression, Mood Lability - Patient Data Vitals - Most Recent: Last Vital Signs Temp 97.7 F 01/18/17 06:40 Pulse 71 01/18/17 06:40 Resp 20 01/18/17 06:40 BP 157/82 H 01/18/17 06:40 Pulse Ox 96 01/18/17 06:40 Weight - Most Recent: 210 lb 14.4 oz I&O - Last 24 Hours: Intake & Output 01/17/17 01/18/17 01/18/17 22:59 06:59 14:59 Intake Total 180 2238 Output Total 700 Balance 180 1538 Lab Results Last 24 Hours: Laboratory Results - last 24 hr 01/17/17 01/17/17 01/18/17 Range/Units 16:05 16:05 05:48 WBC 10.70 H (4.23-9.07) K/mm3 RBC 3.87 L (4.63-6.08) M/mm3 Hgb 12.0 L (13.7-17.5) gm/L Hct 34.8 L (40.1-51.0) % MCV 89.9 (79.0-92.2) fl MCH 31.0 (25.7-32.2) pg MCHC 34.5 (32.2-35.5) g/dl RDW Std Deviation 39.8 (35.1-43.9) fL Plt Count 205 (163-337) K/mm3 MPV 9.7 (9.4-12.3) fl Neut % (Auto) 85.7 H (34.0-67.9) % Lymph % (Auto) 6.0 L (21.8-53.1) % Gordon % (Auto) 7.7 (5.3-12.2) % Eos % (Auto) 0 L (0.8-7.0) Baso % (Auto) 0.1 (0.1-1.2) % Neut # (Auto) 9.18 H (1.78-5.38) K/mm3 Lymph # (Auto) 0.64 L (1.32-3.57) K/mm3 Gordon # (Auto) 0.82 (0.30-0.82) K/mm3 Eos # (Auto) 0.00 L (0.04-0.54) K/mm3 Baso # (Auto) 0.01 (0.01-0.08) K/mm3 Manual Slide Review Abnormal smear ESR (0-15) mm/hr Sodium (136-145) mEq/L Potassium (3.5-5.1) mEq/L Chloride (98-107) mEq/L Carbon Dioxide (21-32) mEq/L Anion Gap (5-15) BUN (7-18) mg/dL Creatinine (0.7-1.3) mg/dL Est Cr Clr Drug Dosing mL/min Estimated GFR (MDRD) (>60) mL/min BUN/Creatinine Ratio (14-18) Glucose (83-115) mg/dL Lactic Acid 1.3 (0.4-2.0) mmol/L Calcium (8.5-10.1) mg/dL Magnesium (1.8-2.4) mg/dl C-Reactive Protein (<1.0) mg/dL Triglycerides 36 (<150) mg/dL Cholesterol 156 (<200) mg/dL LDL Cholesterol Direct 97 (<100) mg/dL HDL Cholesterol 60.0 H (40-59) mg/dL 01/18/17 01/18/17 Range/Units 05:48 05:48 WBC (4.23-9.07) K/mm3 RBC (4.63-6.08) M/mm3 Hgb (13.7-17.5) gm/L Hct (40.1-51.0) % MCV (79.0-92.2) fl MCH (25.7-32.2) pg MCHC (32.2-35.5) g/dl RDW Std Deviation (35.1-43.9) fL Plt Count (163-337) K/mm3 MPV (9.4-12.3) fl Neut % (Auto) (34.0-67.9) % Lymph % (Auto) (21.8-53.1) % Gordon % (Auto) (5.3-12.2) % Eos % (Auto) (0.8-7.0) Baso % (Auto) (0.1-1.2) % Neut # (Auto) (1.78-5.38) K/mm3 Lymph # (Auto) (1.32-3.57) K/mm3 Gordon # (Auto) (0.30-0.82) K/mm3 Eos # (Auto) (0.04-0.54) K/mm3 Baso # (Auto) (0.01-0.08) K/mm3 Manual Slide Review ESR 108 H (0-15) mm/hr Sodium 141 (136-145) mEq/L Potassium 3.2 L (3.5-5.1) mEq/L Chloride 108 H (98-107) mEq/L Carbon Dioxide 20 L (21-32) mEq/L Anion Gap 16.2 H (5-15) BUN 33 H (7-18) mg/dL Creatinine 1.2 (0.7-1.3) mg/dL Est Cr Clr Drug Dosing 58.26 mL/min Estimated GFR (MDRD) 59 (>60) mL/min BUN/Creatinine Ratio 27.5 H (14-18) Glucose 174 H (83-115) mg/dL Lactic Acid (0.4-2.0) mmol/L Calcium 9.5 (8.5-10.1) mg/dL Magnesium 2.0 (1.8-2.4) mg/dl C-Reactive Protein 17.1 H* (<1.0) mg/dL Triglycerides (<150) mg/dL Cholesterol (<200) mg/dL LDL Cholesterol Direct (<100) mg/dL HDL Cholesterol (40-59) mg/dL Med Orders - Current: Current Medications Acetaminophen (Tylenol) 650 mg PO Q4H PRN PRN Reason: Pain (Mild 1-3)/fever Hydrocodone Bitart/Acetaminophen ([place] 325-5 Mg) 1 tab PO Q4H PRN PRN Reason: Pain (moderate 4-6) Albuterol/Ipratropium (Duoneb 3.0-0.5 Mg/3 Ml) 3 ml NEB Q4H PRN PRN Reason: Shortness Of Breath/wheezing Allopurinol (Zyloprim) [address] [facility] Amlodipine Besylate (Norvasc) [address] [facility] Bisacodyl (Dulcolax) 5 mg PO DAILY PRN PRN Reason: Constipation Carvedilol (Coreg) 18.[address] [facility] Docusate Sodium (Colace) 100 mg PO BID PRN PRN Reason: Constipation Enoxaparin Sodium (Lovenox) [address] [facility] Last Admin: 01/17/17 17:29 Dose: 40 mg Fish Oil (Fish Oil) [address] [facility] Flunisolide (Nasalide Nasal [place]) [address] [facility] Hydralazine HCl (Apresoline) 20 mg IVPUSH Q4H PRN PRN Reason: Hypertension Last Admin: 01/18/17 07:24 Dose: 20 mg Hydromorphone HCl (Dilaudid) 0.25 mg IVPUSH Q2H PRN PRN Reason: Pain (severe 7-10) Sodium Chloride (Normal Saline) 1,000 mls @ 125 mls/hr IV ASDIRECTED [facility] Stop: 01/18/17 23:14 Last Admin: 01/18/17 01:47 Dose: 125 mls/hr Levofloxacin/Dextrose 750 mg/ (Premix) 150 mls @ 100 mls/hr IV Q24H [facility] Last Admin: 01/17/17 17:12 Dose: 100 mls/hr Vancomycin HCl 1 gm/ Sodium (Chloride) 250 mls @ 250 mls/hr IV Q12H [facility] Ibuprofen (Motrin) [address] [facility] Last Admin: 01/18/17 01:47 Dose: Not Given Losartan Potassium (Cozaar) [address] [facility] Magnesium Hydroxide (Milk Of Magnesia) 30 ml PO Q12H PRN PRN Reason: Constipation Magnesium Sulfate (Pharmacy To Dose - Magnesium Replacement) 0 dose .XX ASDIRECTED PRN PRN Reason: RX TO WATCH MAG LEVELS Metoprolol Tartrate (Lopressor) 5 mg IVPUSH Q6H PRN PRN Reason: Tachycardia Ondansetron HCl (Zofran Odt) 4 mg PO Q6H PRN PRN Reason: nausea, able to take PO Ondansetron HCl (Zofran) 4 mg IV Q6H PRN PRN Reason: Nausea/Vomiting Pantoprazole Sodium (Protonix) [address] [facility] Last Admin: 01/17/17 17:29 Dose: 40 mg Pantoprazole Sodium (Protonix) 40 mg PO DAILY@0700 [facility] Polyethylene Glycol (Miralax) 17 gm PO DAILY PRN PRN Reason: Constipation Potassium Chloride (Pharmacy To Dose - Potassium Replacement) 0 dose .XX ASDIRECTED PRN PRN Reason: RX TO WATCH K LEVELS Potassium Chloride (Klor-Con M20) [address] [facility] Senna/Docusate Sodium (Senna Plus) 1 tab PO BID PRN PRN Reason: Constipation Sodium Chloride (Saline Flush) 10 ml FLUSH ASDIRECTED PRN PRN Reason: Keep Vein Open Last Admin: 01/17/17 10:21 Dose: 10 ml Spironolactone (Aldactone) 12.[address] [facility] Tamsulosin HCl (Flomax) 0.[address] [facility] Temazepam (Restoril) 15 mg PO BEDTIME PRN PRN Reason: Sleep Last Admin: 01/17/17 21:40 Dose: 15 mg Vit A/Vit C/Vit E/Selen/Cu/Zn/Lutei (Icaps Mv) [address] [facility] Discontinued Medications Hydromorphone HCl (Dilaudid) 0.25 mg IVPUSH Q2H PRN PRN Reason: Pain (severe 7-10) Piperacillin Sod/Tazobactam (Sod 4.5 gm/ Sodium Chloride) 100 mls @ 200 mls/hr IV ONETIME ONE Stop: 01/17/17 14:10 Last Admin: 01/17/17 13:52 Dose: 200 mls/hr Vancomycin HCl 1 gm/ Sodium (Chloride) 250 mls @ 250 mls/hr IV Q12H [facility] Stop: 01/18/17 05:30 Last Admin: 01/18/17 03:41 Dose: 250 mls/hr Potassium Chloride 10 meq/ (Premix) 100 mls @ 100 mls/hr IV Q1H [facility] Stop: 01/17/17 22:59 Last Admin: 01/17/17 22:10 Dose: 100 mls/hr Methylprednisolone Sodium Succinate (Solu-Medrol) 125 mg IVPUSH ONETIME ONE Stop: 01/17/17 10:42 Last Admin: 01/17/17 10:59 Dose: 125 mg - Exam Quality Assessment: DVT Prophylaxis General: Alert, Cooperative, Other (mildly confused) HEENT: Pupils Equal, Pupils Reactive, Mucous Membr. Moist/[place] Neck: Supple, Trachea Midline, No JVD Lungs: Clear to Auscultation, Normal Respiratory Effort Cardiovascular: Regular Rate, Regular Rhythm GI/Abdominal Exam: Normal Bowel Sounds, Soft, Non-Tender, No Organomegaly, No Distention, No Mass (Male) Exam: Deferred Back Exam: Normal Inspection, Decreased Range of Motion. No: Paraspinal Tenderness, Vertebral Tenderness Extremities: Normal Inspection, Normal Capillary Refill, Pedal Edema (1+), Limited Range of Motion, Other (pain at right wrist ) Peripheral Pulses: 2+: Radial (L), Radial (R), Posterior Tibial (L), Posterior Tibial (R), Dorsalis Pedis (L), Dorsalis Pedis (R) Skin: Warm, Dry, Intact - Problem List & Annotations (1) Back pain SNOMED Code(s): 086119343 Code(s): M54.9 - DORSALGIA, UNSPECIFIED Status: Acute Priority: High Current Visit: Yes Qualifiers: Back pain location: thoracic back pain Chronicity: acute Back pain laterality: midline Qualified Code(s): M54.6 - Pain in thoracic spine (2) Cervical spine pain SNOMED Code(s): 527881828 Code(s): M54.2 - CERVICALGIA Status: Acute Priority: High Current Visit : Yes (3) Right shoulder pain SNOMED Code(s): 20729789, 03396610 Code(s): M25.511 - PAIN IN RIGHT SHOULDER Status: Acute Priority: High Current Visit: Yes Qualifiers: Chronicity: chronic Qualified Code(s): M25.511 - Pain in right shoulder; G89.29 - Other chronic pain (4) Joint inflammation of right hand and wrist SNOMED Code(s): 960769052, 970251770, 074342843 Code(s): M19.90 - UNSPECIFIED OSTEOARTHRITIS, UNSPECIFIED SITE Status: Acute Priority: High Current Visit: Yes (5) Acute kidney injury SNOMED Code(s): 45355380 Code(s): N17.9 - ACUTE KIDNEY FAILURE, UNSPECIFIED Status: Acute Priority : High Current Visit: Yes (6) Hypokalemia SNOMED Code(s): 83744766 Code(s): E87.6 - HYPOKALEMIA Status: Acute Current Visit: Yes (7) Confused SNOMED Code(s): 116693373 Code(s): R41.0 - DISORIENTATION, UNSPECIFIED Status: Chronic Priority: Medium Current Visit: Yes - Problem List Review Problem List Initiated/Reviewed/Updated: Yes - My Orders Last 24 Hours: My Active Orders 01/17/17 15:30 Pantoprazole [ProTONIX] 40 mg PO DAILY 01/17/17 15:41 hydrALAZINE [Apresoline] 20 mg IVPUSH Q4H PRN 01/17/17 15:42 Metoprolol Tartrate [Lopressor] 5 mg IVPUSH Q6H PRN 01/17/17 16:00 Ibuprofen [Motrin] 600 mg PO Q8H Levofloxacin/Dextrose 5%-Water [Levaquin in D5W 750 MG/150 ML] 750 mg Premix Bag 1 bag IV Q24H 01/17/17 16:56 Patient Status [ADT] Routine Oxygen Therapy [RC] PRN VTE/DVT Education [RC] PER UNIT ROUTINE 01/17/17 17:15 Magnesium Rep Pharmacy to Dose [Pharmacy to Dose - Magnesium Replacement] 0 dose .XX ASDIRECTED PRN Potassium Rep Pharmacy to Dose [Pharmacy to Dose - Potassium Replacement] 0 dose .XX ASDIRECTED PRN 01/18/17 07:00 Pantoprazole [ProTONIX] 40 mg PO DAILY@0700 01/18/17 07:33 HYDROmorphone [Dilaudid] 0.25 mg IVPUSH Q2H PRN 01/18/17 09:00 Allopurinol [Zyloprim] 100 mg PO DAILY Carvedilol [Coreg] 18.75 mg PO BID Fish Oil/[place]-3 Fatty Acids [Fish Oil] 1 gm PO DAILY Flunisolide [Nasalide Nasal [place]] 0 ml NASBOTH BID Losartan [Cozaar] 100 mg PO DAILY Multivitamins/Min/FA/Lut/Zeax [ICaps MV] 1 tab PO DAILY Potassium Chloride [Klor-Con M20] 20 meq PO BID Spironolactone [Aldactone] 12.5 mg PO DAILY Tamsulosin [Flomax] 0.4 mg PO DAILY amLODIPine [Norvasc] 10 mg PO DAILY 01/18/17 16:00 Vancomycin [Vancocin] 1 gm Sodium Chloride 0.9% [Normal Saline] 250 ml IV Q12H - Plan Plan:: I/P Acute: Inflammation and pain of right hand and joint -Rheumatoid condition vs. gout inflammation -Risks: previous gout dx, Low fluid intake -Has been seen by ortho and primary care for this in the past - dx'ed with gout -Has been working with PT for prior symptoms -Pt. reports he was doing well and recovering until recently -Erythema and pain in wrist and hand- improved -Elevated ESR (105-->108) and CRP (16.8-->17.1) -Serum uric acid normal at 5.6 -Urine uric acid pending -Calcium normal at 9.4 -WBC slightly elevated at 10.17 -->10.7 -Vancomycin and levaquin started - discontinued today -Ibuprofen 600 TID -Blood cultures obtained - No growth after 1 day -Reports rheumatoid arthritis as a kid. -RF screen negative -Lactic acid 1.3 -Hand x-ray reveals degenerative changes, slight chondrocalcinosis, and mild vascular calcification -Will establish with card puncher Right shoulder pain -Has been evaluated in past for this -Pt. reports was improving with PT until recently -Denies recent trauma -Look for underlying cause -see above Neck pain -New onset -Denies recent trauma -Aggravated by movement -c-spine x-ray ordered, radiologist reports degenerative changes, although inadequate x-ray. -Look for underlying cause - see above Back pain -New onset lumbar and thoracic pain -Denies recent trauma -Aggravated by movement -Thoracic and lumbar x-rays ordered radiologist reports degenerative changes -Look for underlying cause - see above Acute kidney injury - Stage 3, improved - Likely 2/2 dehydration - Baseline from current records shows eGFR around 60, --> 49-->59 today ( baseline) - Creatinine elevated at 1.4 -->1.2 - BUN elevated at 27 -->33 - Will increase fluids and look for response - Avoid nephrotoxic medications if possible Hypokalemia -Low in ER (3.3) and today (3.2) -Pharmacy to monitor and replete -Will monitor Memory loss/confusion -There is some concern about patients present state as he drives and lives alone. No one from his family lives close. He has some memory loss and confusion at baseline. PT. sees him outpatient and reports he appears to be at baseline currently. He is unable to remember many members of his family, their location, etc. Family has been contacted and reportedly will be sending someone up to visit soon. Pt. reportedly has someone who comes into his home to manage his medications. Ordered cognition evaluation. Pt. reports someone discussed dementia with him in the past, but he has never been diagnosed formally, to the best of his knowledge. I reviewed many of the notes from our clinic providers here and was unable to find a formal diagnosis, however "memory loss" is mentioned several times. He does take Cebria, which is an OTC monthly subscription memory aid supplement. This has been held for now. Will plan on discharge tomorrow pending cognition results. Chronic: BPH Constipation GERD HTN Insomnia Arthritis Gouty arthritis Former smoker Plan: Admit as inpatient CM/SW for discharge planning Spiritual care consult PT/OT Ele[facility] Tamer consult for purine avoidance DVT/PVD prophylaxis GI prophylaxis - Increased to BID due to NSAIDs. Other orders as indicated above Full code
[2017-01-18] MEDS: Losartan 100 MG Tab PO SCH (08:35)
[2017-01-18] MEDS: Fish Oil/Omega-3 Fatty Acids 1 Gm Cap PO SCH (08:35)
[2017-01-18] MEDS: Tamsulosin 0.4 MG Cap.ER PO SCH (08:35)
[2017-01-18] MEDS: Multivitamins with Minerals/Folic Acid/Lutein/Zeaxanth Tab PO SCH (08:35)
[2017-01-18] MEDS: Carvedilol 6.25 MG Tab PO SCH ×2 (08:36→20:14)
[2017-01-18] MEDS: amLODIPine 10 MG Tab PO SCH (08:36)
[2017-01-18] MEDS: Allopurinol 100 MG Tab PO SCH (08:36)
[2017-01-18] MEDS: Spironolactone 25 MG Tab PO SCH (08:36)
[2017-01-18] MEDS: Potassium Chloride 20 MEQ Tab.ER PO SCH ×5 (08:37→20:14)
[2017-01-18] MEDS: Pantoprazole 40 MG Tab.CR PO SCH (15:14)
[2017-01-18] MEDS: Enoxaparin 40 MG/0.4 ML Syringe SUBCUT SCH (16:35)
[2017-01-19] MEDS: Pantoprazole 40 MG Tab.CR PO SCH ×2 (00:51→05:19)
[2017-01-19] MEDS: Ibuprofen 600 MG Tab PO SCH ×2 (01:20→08:14)
--- NOTE | 2017-01-19 07:23 | PCM.PN ---
- General Info Date of Service: 01/19/17 Admission Dx/Problem (Free Text): Admission Diagnosis/Problem Admission Diagnosis/Problem Gout Functional Status: Reports: Pain Controlled, Tolerating Diet, Ambulating, Urinating. Denies: New Symptoms - Review of Systems General: Reports: No Symptoms. Denies: Fever, Weakness, Fatigue HEENT: Reports: No Symptoms. Denies: Sore Throat Pulmonary: Reports: No Symptoms. Denies: Shortness of Breath, Pleuritic Chest Pain, Cough Cardiovascular: Reports: No Symptoms. Denies: Chest Pain, Palpitations, Dyspnea on Exertion Gastrointestinal: Reports: No Symptoms. Denies: Abdominal Pain, Constipation, Diarrhea, Vomiting Genitourinary: Reports: No Symptoms. Denies: Dysuria, Pain Musculoskeletal: Reports: No Symptoms, Neck Pain (mild ), Hand Pain (improving ) , Back Pain (mild ), Joint Pain (improving ), Joint Swelling (improving ) Skin: Reports: No Symptoms Neurological: Reports: Confusion. Denies: Dizziness, Headache, Pre-Existing Deficit, Trouble Speaking, Weakness Psychiatric: Reports: Confusion. Denies: Depression, Anxiety - Patient Data Vitals - Most Recent: Last Vital Signs Temp 97.3 F 01/19/17 00:00 Pulse 67 01/19/17 05:12 Resp 16 01/19/17 05:12 BP 120/95 H 01/19/17 05:12 Pulse Ox 96 01/19/17 05:12 Weight - Most Recent: 215 lb 8 oz I&O - Last 24 Hours: Intake & Output 01/18/17 01/19/17 01/19/17 22:59 06:59 14:59 Intake Total 1460 600 Output Total 950 600 Balance 510 0 Lab Results Last 24 Hours: Laboratory Results - last 24 hr 01/19/17 Range/Units 06:10 WBC 9.90 H (4.23-9.07) K/mm3 RBC 3.37 L (4.63-6.08) M/mm3 Hgb 10.5 L (13.7-17.5) gm/L Hct 31.7 L (40.1-51.0) % MCV 94.1 H (79.0-92.2) fl MCH 31.2 (25.7-32.2) pg MCHC 33.1 (32.2-35.5) g/dl RDW Std Deviation 42.5 (35.1-43.9) fL Plt Count 180 (163-337) K/mm3 MPV 10.4 (9.4-12.3) fl Neut % (Auto) 71.3 H (34.0-67.9) % Lymph % (Auto) 17.7 L (21.8-53.1) % [place] % (Auto) 9.6 (5.3-12.2) % Eos % (Auto) 0.5 L (0.8-7.0) Baso % (Auto) 0.2 (0.1-1.2) % Neut # (Auto) 7.06 H (1.78-5.38) K/mm3 Lymph # (Auto) 1.75 (1.32-3.57) K/mm3 [place] # (Auto) 0.95 H (0.30-0.82) K/mm3 Eos # (Auto) 0.05 (0.04-0.54) K/mm3 Baso # (Auto) 0.02 (0.01-0.08) K/mm3 Manual Slide Review Not Reportable Med Orders - Current: Current Medications Acetaminophen (Tylenol) 650 mg PO Q4H PRN PRN Reason: Pain (Mild 1-3)/fever Hydrocodone Bitart/Acetaminophen ([place] 325-5 Mg) 1 tab PO Q4H PRN PRN Reason: Pain (moderate 4-6) Albuterol/Ipratropium (Duoneb 3.0-0.5 Mg/3 Ml) 3 ml NEB Q4H PRN PRN Reason: Shortness Of Breath/wheezing Allopurinol (Zyloprim) 100 mg PO DAILY [facility] Last Admin: 01/18/17 08:36 Dose: 100 mg Amlodipine Besylate (Norvasc) 10 mg PO DAILY [facility] Last Admin: 01/18/17 08:36 Dose: 10 mg Bisacodyl (Dulcolax) 5 mg PO DAILY PRN PRN Reason: Constipation Carvedilol (Coreg) 18.75 mg PO BID [facility] Last Admin: 01/18/17 20:14 Dose: 18.75 mg Docusate Sodium (Colace) 100 mg PO BID PRN PRN Reason: Constipation Enoxaparin Sodium (Lovenox) 40 mg SUBCUT Q24H [facility] Last Admin: 01/18/17 16:35 Dose: 40 mg Fish Oil (Fish Oil) 1 gm PO DAILY [facility] Last Admin: 01/18/17 08:35 Dose: 1 gm Flunisolide (Nasalide Nasal [place]) 0 ml NASBOTH BID [facility] Last Admin: 01/18/17 20:17 Dose: 2 spray Hydralazine HCl (Apresoline) 20 mg IVPUSH Q4H PRN PRN Reason: Hypertension Last Admin: 01/18/17 07:24 Dose: 20 mg Hydromorphone HCl (Dilaudid) 0.25 mg IVPUSH Q2H PRN PRN Reason: Pain (severe 7-10) Ibuprofen (Motrin) 600 mg PO Q8H [facility] Last Admin: 01/19/17 01:20 Dose: Not Given Losartan Potassium (Cozaar) 100 mg PO DAILY [facility] Last Admin: 01/18/17 08:35 Dose: 100 mg Magnesium Hydroxide (Milk Of Magnesia) 30 ml PO Q12H PRN PRN Reason: Constipation Magnesium Sulfate (Pharmacy To Dose - Magnesium Replacement) 0 dose .XX ASDIRECTED PRN PRN Reason: RX TO WATCH MAG LEVELS Metoprolol Tartrate (Lopressor) 5 mg IVPUSH Q6H PRN PRN Reason: Tachycardia Ondansetron HCl (Zofran Odt) 4 mg PO Q6H PRN PRN Reason: nausea, able to take PO Ondansetron HCl (Zofran) 4 mg IV Q6H PRN PRN Reason: Nausea/Vomiting [facility] Admin: 01/19/17 05:19 Dose: 40 mg Polyethylene Glycol (Miralax) 17 gm PO DAILY PRN PRN Reason: Constipation Potassium Chloride (Pharmacy To Dose - Potassium Replacement) 0 dose .XX ASDIRECTED PRN PRN Reason: RX TO WATCH K LEVELS Potassium Chloride (Klor-Con M20) 20 meq PO BID [facility] Last Admin: 01/18/17 20:14 Dose: 20 meq Senna/Docusate Sodium (Senna Plus) 1 tab PO BID PRN PRN Reason: Constipation Sodium Chloride (Saline Flush) 10 ml FLUSH ASDIRECTED PRN PRN Reason: Keep Vein Open Last Admin: 01/17/17 10:21 Dose: 10 ml Spironolactone (Aldactone) 12.5 mg PO DAILY [facility] Last Admin: 01/18/17 08:36 Dose: 12.5 mg Tamsulosin HCl (Flomax) 0.4 mg PO DAILY [facility] Last Admin: 01/18/17 08:35 Dose: 0.4 mg Temazepam (Restoril) 15 mg PO BEDTIME PRN PRN Reason: Sleep Last Admin: 01/17/17 21:40 Dose: 15 mg Vit A/Vit C/Vit E/Selen/Cu/Zn/Lutei (Icaps Mv) 1 tab PO DAILY [facility] Last Admin: 01/18/17 08:35 Dose: 1 tab Discontinued Medications Hydromorphone HCl (Dilaudid) 0.25 mg IVPUSH Q2H PRN PRN Reason: Pain (severe 7-10) Piperacillin Sod/Tazobactam (Sod 4.5 gm/ Sodium Chloride) 100 mls @ 200 mls/hr IV ONETIME ONE Stop: 01/17/17 14:10 Last Admin: 01/17/17 13:52 Dose: 200 mls/hr Sodium Chloride (Normal Saline) 1,000 mls @ 125 mls/hr IV ASDIRECTED [facility] Stop: 01/18/17 23:14 Last Admin: 01/18/17 01:47 Dose: 125 mls/hr Levofloxacin/Dextrose 750 mg/ (Premix) 150 mls @ 100 mls/hr IV Q24H [facility] Last Admin: 01/17/17 17:12 Dose: 100 mls/hr Vancomycin HCl 1 gm/ Sodium (Chloride) 250 mls @ 250 mls/hr IV Q12H [facility] Stop: 01/18/17 05:30 Last Admin: 01/18/17 03:41 Dose: 250 mls/hr Potassium Chloride 10 meq/ (Premix) 100 mls @ 100 mls/hr IV Q1H [facility] Stop: 01/17/17 22:59 Last Admin: 01/17/17 22:10 Dose: 100 mls/hr Vancomycin HCl 1 gm/ Sodium (Chloride) 250 mls @ 250 mls/hr IV Q12H [facility] Methylprednisolone Sodium Succinate (Solu-Medrol) 125 mg IVPUSH ONETIME ONE Stop: 01/17/17 10:42 Last Admin: 01/17/17 10:59 Dose: 125 mg Pantoprazole Sodium (Protonix) 40 mg PO DAILY [facility] Last Admin: 01/19/17 00:51 Dose: Not Given Pantoprazole Sodium (Protonix) 40 mg PO DAILY@0700 [facility] Last Admin: 01/18/17 08:34 Dose: 40 mg Potassium Chloride (Klor-Con M20) 40 meq PO Q4H [facility] Stop: 01/18/17 19:01 Last Admin: 01/18/17 18:10 Dose: 40 meq - Exam Quality Assessment: DVT Prophylaxis General: Alert, Cooperative, No Acute Distress, Other (Memory Impairment and some confusion ) HEENT: Pupils Equal, Pupils Reactive, Mucous Membr. Moist/[place] Neck: Supple, Trachea Midline, No JVD Lungs: Clear to Auscultation, Normal Respiratory Effort Cardiovascular: Regular Rate, Regular Rhythm GI/Abdominal Exam: Normal Bowel Sounds, Soft, Non-Tender, No Organomegaly, No Distention (Male) Exam: Deferred Back Exam: Normal Inspection, Decreased Range of Motion Extremities: No Pedal Edema, Normal Capillary Refill, Joint Swelling (right wrist - improving ), Arm Pain (right wrist and hand - improving ), Limited Range of Motion (due to pain). No: Increased Warmth Peripheral Pulses: 2+: Radial (L), Radial (R), Posterior Tibial (L), Posterior Tibial (R), Dorsalis Pedis (L), Dorsalis Pedis (R) Skin: Warm, Dry, Intact Neurological: No New Focal Deficit, Normal Speech, Normal Tone, Strength Equal Bilateral Psy/Mental Status: Alert, Normal Affect, Normal Mood - Problem List & Annotations (1) Pseudogout SNOMED Code(s): 499454376 Code(s): M11.20 - OTHER CHONDROCALCINOSIS, UNSPECIFIED SITE Status: Suspected Priority: High Current Visit: Yes (2) Back pain SNOMED Code(s): 474753448 Code(s): M54.9 - DORSALGIA, UNSPECIFIED Status: Acute Priority: High Current Visit: Yes Qualifiers: Back pain location: thoracic back pain Chronicity: acute Back pain laterality: midline Qualified Code(s): M54.6 - Pain in thoracic spine (3) Cervical spine pain SNOMED Code(s): 714207361 Code(s): M54.2 - CERVICALGIA Status: Acute Priority: High Current Visit : Yes (4) Right shoulder pain SNOMED Code(s): 50480029, 86930238 Code(s): M25.511 - PAIN IN RIGHT SHOULDER Status: Acute Priority: High Current Visit: Yes Qualifiers: Chronicity: chronic Qualified Code(s): M25.511 - Pain in right shoulder; G89.29 - Other chronic pain (5) Joint inflammation of right hand and wrist SNOMED Code(s): 884265130, 105558685, 768456257 Code(s): M19.90 - UNSPECIFIED OSTEOARTHRITIS, UNSPECIFIED SITE Status: Acute Priority: High Current Visit: Yes (6) Acute kidney injury SNOMED Code(s): 87612957 Code(s): N17.9 - ACUTE KIDNEY FAILURE, UNSPECIFIED Status: Acute Priority : High Current Visit: Yes (7) Hypokalemia SNOMED Code(s): 18573471 Code(s): E87.6 - HYPOKALEMIA Status: Acute Current Visit: Yes (8) Confused SNOMED Code(s): 700104351 Code(s): R41.0 - DISORIENTATION, UNSPECIFIED Status: Chronic Priority: Medium Current Visit: Yes - Problem List Review Problem List Initiated/Reviewed/Updated: Yes - My Orders Last 24 Hours: My Active Orders 01/18/17 07:33 HYDROmorphone [Dilaudid] 0.25 mg IVPUSH Q2H PRN 01/18/17 09:00 Allopurinol [Zyloprim] 100 mg PO DAILY Carvedilol [Coreg] 18.75 mg PO BID Fish Oil/[place]-3 Fatty Acids [Fish Oil] 1 gm PO DAILY Flunisolide [Nasalide Nasal [place]] 0 ml NASBOTH BID Losartan [Cozaar] 100 mg PO DAILY Multivitamins/Min/FA/Lut/Zeax [ICaps MV] 1 tab PO DAILY Potassium Chloride [Klor-Con M20] 20 meq PO BID Spironolactone [Aldactone] 12.5 mg PO DAILY Tamsulosin [Flomax] 0.4 mg PO DAILY amLODIPine [Norvasc] 10 mg PO DAILY 01/18/17 11:30 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 Noted on hand x-ray, however we did not aspirate joint -Risks: previous gout dx, Low fluid intake -Has been seen by ortho and primary care for this in the past - dx'ed with gout -Has been working with PT for prior symptoms -Pt. reports he was doing well and recovering until recently -Erythema and pain in wrist and hand- improved -Elevated ESR (105-->108) and CRP (16.8-->17.1) -Serum uric acid normal at 5.6 -Urine uric acid pending -Calcium normal at 9.4 -WBC slightly elevated at 10.17 -->10.7 -Vancomycin and levaquin started - discontinued 01/18/17 -Ibuprofen 600 TID -Blood cultures obtained - No growth after 1 day -Reports rheumatoid arthritis as a kid. -RF screen negative -Lactic acid 1.3 -Hand x-ray reveals degenerative changes, slight chondrocalcinosis, and mild vascular calcification Right shoulder pain -Has been evaluated in past for this -Pt. reports was improving with PT until recently. Hx of "bone spurs" in shoulder -Denies recent trauma -Look for underlying cause -believed to be rheumatologic in nature Neck pain -New onset -Denies recent trauma -Aggravated by movement -c-spine x-ray ordered, radiologist reports degenerative changes, although inadequate x-ray. -Look for underlying cause - believed to be rheumatologic in natur Back pain -New onset lumbar and thoracic pain -Denies recent trauma -Aggravated by movement -Thoracic and lumbar x-rays ordered radiologist reports degenerative changes -Look for underlying cause - believed to be rheumatologic in natur Acute kidney injury - Stage 3, improved - Likely 2/2 dehydration - Baseline from current records shows eGFR around 60, --> 49-->59 today ( baseline) - Creatinine elevated at 1.4 -->1.2 - BUN elevated at 27 -->33 - Will increase fluids and look for response - Avoid nephrotoxic medications if possible Hypokalemia -Low in ER (3.3) and today (3.2) -Pharmacy to monitor and replete -Will monitor Memory loss/confusion -There is some concern about patients present state as he drives and lives alone. No one from his family lives close. He has some memory loss and confusion at baseline. PT. sees him outpatient and reports he appears to be at baseline currently. He is unable to remember many members of his family, their location, etc. Family has been contacted and reportedly will be sending someone up to visit soon. Pt. reportedly has someone who comes into his home to manage his medications. Ordered cognition evaluation. Pt. reports someone discussed dementia with him in the past, but he has never been diagnosed formally, to the best of his knowledge. I reviewed many of the notes from our clinic providers here and was unable to find a formal diagnosis, however "memory loss" is mentioned several times. He does take Cebria, which is an OTC monthly subscription memory aid supplement. This has been held for now. Will plan on discharge tomorrow pending cognition results. Chronic: BPH Constipation GERD HTN Insomnia Arthritis Gouty arthritis Former smoker Plan: Admit as inpatient CM/SW for discharge planning Spiritual care consult PT/OT Streaming Media Specialist consult for purine avoidance DVT/PVD prophylaxis GI prophylaxis - Increased to BID due to NSAIDs. Establish with automatic profile sander operator Other orders as indicated above Full code
--- NOTE | 2017-01-19 08:04 | PCM.DCSUM1 ---
Discharge Summary - Hospital Course Free Text/Narrative:: Mr. Matt Garcia is a 76 year old male who was brought to our ED today via EMS with a complaint of chills, generalized weakness, and severe right hand and wrist pain. His found to have a low-grade fever of 100.2 in the ED. He lives alone. It appears he has been doing with the symptoms for multiple months. Has seen Dr. Mcnamara and Dr. Alvarez for this in our clinic. He has been undergoing PT treatment in our facility as well. Patient reports his treatment was helping and "it was almost all gone." He now reports worsening discomfort, redness, and swelling. He was admitted for similar symptoms in his right hand in the past and diagnosed with gout. He caries a history of BPH, Constipation, GERD, HTN, Insomnia, Memory loss, Arthritis, Gouty arthritis. He is a former smoker. Labs were obtained in the ED. ESR was high at 105. Potassium is low at 3.3. Anion gap is 11.3. BUN is high at 27 and creatinine is high at 1.4. EGFR is 49. Glucose high at 126. Uric acid normal at 5.6 and calcium is normal at 9.4. CRP was 16.8. Albumin low at 2.8. He did have a white count at 10.17 and neutrophils were high at 72. He was global was low at 12.1. He was started on Zosyn in the ED and given Solu-Medrol 125 mg IV push. Blood cultures 1 were obtained. He was subsequently admitted to observation on the floor. He is a full code. His primary care provider is DIOR Jiménez. Mr. Garcia improved rapidly while in our care. He was given steroids in the ED and started on antibiotics. His wrist was unimpressive for cellulitis and antibiotics were stopped. He was started on ibuprofen. GI prophylaxis was also initiated. X-ray of the right painful swollen wrist revealed degenerative changes, slight chondrocalcinosis, and mild vascular calcifications per Dr. Huitron read. Mr. Garcia was also complaining of neck and back pain. Neck thoracic and lumbar x-rays were obtained and he showed degenerative changes, per Dr. Huitron. Inflammation and swelling of the right wrist improved greatly. Patient was unable to move without pain in ED and prior to discharge patient was eating utilizing right wrist. Neck and back pain also greatly improved. Uric acid improved to 4.3. Lipid study was performed and looked excellent. RF factor was negative. EGFR improved to greater than 60. Prior to discharge CRP improved to 6.0. WBC was down to 9.9. ESR was down to 94. Magnesium was 1.9. BUN had improved to 30 and creatinine had improved to 1.1. It is believed the patient may have an underlying rheumatologic condition as he stated the past he was seen as a child and diagnosed with something joint related. He was told this would improve his adolescence and then return as an adult. As mentioned RF factor was negative here. Patient is strongly encouraged to see outpatient rheumatology in the near future to investigate this further. There were also some concerns about the patient's living situation as he lives alone in the area and has no family nearby. A son was contacted and reports his been some time since he visited his father. Patient showed memory impairment while here and had difficulty remembering family members etc. He also appeared to have some minor confusion. A cognition eval was performed and recommended patient receive help with medication management and cooking. There was some concern the patient may leave an oven on etc. This was communicated to the family by social workers. They report family will be [facility] their [facility] with the intent of removing the patient closer to them. Social workers were attempting to find the patient arrived home today. Family was going to check in with the patient multiple times throughout the day until their arrival. They also report there is a neighbor who can be an emergency contact. He is to use a cane at home. He reports he has one of these in his possession but will need to find it. [facility] clinical social work aide will reportedly follow up with patient and assist with meals and medication administration. He will be discharged home today with a prescription for ibuprofen twice a day and twice a day PPI prophylaxis. He should follow up with DIOR Jiménez within 7-10 days, or establish care with another provider once the patient relocates. - Discharge Data Discharge Date: 01/19/17 (Admit Date:01/17/17) Discharge Disposition: Home, W Home Health Agency 06 Condition: Good - Discharge Diagnosis/Problem(s) (1) Pseudogout SNOMED Code(s): 312538663 ICD Code: M11.20 - OTHER CHONDROCALCINOSIS, UNSPECIFIED SITE Status: Suspected Priority: High Current Visit: Yes (2) Back pain SNOMED Code(s): 865057386 ICD Code: M54.9 - DORSALGIA, UNSPECIFIED Status: Acute Priority: High Current Visit: Yes Qualifiers: Back pain location: thoracic back pain Chronicity: acute Back pain laterality: midline Qualified Code(s): M54.6 - Pain in thoracic spine (3) Cervical spine pain SNOMED Code(s): 185207607 ICD Code: M54.2 - CERVICALGIA Status: Acute Priority: High Current Visit: Yes (4) Right shoulder pain SNOMED Code(s): 93645998, 23692404 ICD Code: M25.511 - PAIN IN RIGHT SHOULDER Status: Acute Priority: High Current Visit: Yes Qualifiers: Chronicity: chronic Qualified Code(s): M25.511 - Pain in right shoulder; G89.29 - Other chronic pain (5) Joint inflammation of right hand and wrist SNOMED Code(s): 628588604, 438051510, 860707571 ICD Code: M19.90 - UNSPECIFIED OSTEOARTHRITIS, UNSPECIFIED SITE Status: Acute Priority: High Current Visit: Yes (6) Acute kidney injury SNOMED Code(s): 47741904 ICD Code: N17.9 - ACUTE KIDNEY FAILURE, UNSPECIFIED Status: Resolved Priority: High Current Visit: Yes (7) Hypokalemia SNOMED Code(s): 36942409 ICD Code: E87.6 - HYPOKALEMIA Status: Resolved Current Visit: Yes (8) Confused SNOMED Code(s): 531718356 ICD Code: R41.0 - DISORIENTATION, UNSPECIFIED Status: Chronic Priority: Medium Current Visit: Yes - Patient Summary/Data Consults: Consultations 01/18/17 11:30 TUBE BENDER Eval and Treat [TUBE BENDER Evaluation and Treatment] [CONS] Routine - Discharge Plan Prescriptions/Med Rec: Ibuprofen [IJD: Ibuprofen] 600 mg PO BID #30 tablet Omeprazole 40 mg PO BID 30 Days tablet. Home Medications: Home Meds Aspirin [Halfprin] 81 mg PO DAILY 10/27/16 [History] Carvedilol [Coreg] 18.75 mg PO BID 10/27/16 [History] Fish Oil/[place]-3 Fatty Acids [Fish Oil 1,000 MG] 1,000 mg PO DAILY 10/27/16 [ History] Fluticasone Propionate [Flonase] 1 spray NASBOTH BID 10/27/16 [History] Losartan [Cozaar] 100 mg PO DAILY 10/27/16 [History] Multivitamin W-Minerals/Lutein [Vision Plus Lutein Vitamin] 1 tab PO DAILY 10/27 [History] Potassium Chloride [Klor-Con M20] 20 meq PO BID 10/27/16 [History] Tamsulosin [Flomax] 0.4 mg PO DAILY 10/27/16 [History] amLODIPine [Norvasc] 10 mg PO DAILY 10/27/16 [History] Allopurinol [Zyloprim] 100 mg PO DAILY #30 tablet 10/31/16 [Rx] Cebria Memory Aid 1 cap PO DAILY 10/31/16 [History] Docusate Sodium [Colace] 100 mg PO BID PRN #30 cap 10/31/16 [Rx] Spironolactone [Aldactone] 12.5 mg PO DAILY #30 tablet 10/31/16 [Rx] traMADol [Ultram] 100 mg PO Q6H PRN #40 tablet 10/31/16 [Rx] Ibuprofen [IJD: Ibuprofen] 600 mg PO BID #30 tablet 01/19/17 [Rx] Omeprazole 40 mg PO BID 30 Days tablet. 01/19/17 [Rx] Patient Handouts: Gout, [id number], Rheumatoid Arthritis, [id number], Arthritis, Calcium Pyrophosphate Deposition Forms: ED Department Discharge Referrals: Janet Luong, [employer] [Primary Care Provider] - 01/26/17 1:00 pm (Please check in by 12:45pm.) - Discharge Summary/Plan Comment DC Time >30 min.: Yes (45 min) - General Info Date of Service: 01/19/17 Admission Dx/Problem (Free Text: Chondrocalcinosis, Suspect inflammatory polyarthropathy Functional Status: Reports: Pain Controlled, Tolerating Diet, Ambulating, Urinating. Denies: New Symptoms - Review of Systems General: Reports: No Symptoms HEENT: Reports: No Symptoms Pulmonary: Reports: No Symptoms Cardiovascular: Reports: No Symptoms Gastrointestinal: Reports: No Symptoms Genitourinary: Reports: No Symptoms Musculoskeletal: Reports: No Symptoms, Neck Pain (improving ), Hand Pain (right - improving ), Back Pain (improving ), Joint Pain (right wrist -improving ) Skin: Reports: No Symptoms Neurological: Reports: No Symptoms Psychiatric: Reports: No Symptoms - Patient Data Vitals - Most Recent: Last Vital Signs Temp 99.0 F 01/19/17 07:03 Pulse 61 01/19/17 07:03 Resp 14 01/19/17 07:03 BP 134/80 01/19/17 07:03 Pulse Ox 96 01/19/17 07:03 Weight - Most Recent: 215 lb 8 oz I&O - Last 24 hours: Intake & Output 01/18/17 01/19/17 01/19/17 22:59 06:59 14:59 Intake Total 1460 600 Output Total 950 600 Balance 510 0 Lab Results - Last 24 hrs: Laboratory Results - last 24 hr 01/19/17 01/19/17 Range/Units 06:10 06:10 WBC 9.90 H (4.23-9.07) K/mm3 RBC 3.37 L (4.63-6.08) M/mm3 Hgb 10.5 L (13.7-17.5) gm/L Hct 31.7 L (40.1-51.0) % MCV 94.1 H (79.0-92.2) fl MCH 31.2 (25.7-32.2) pg MCHC 33.1 (32.2-35.5) g/dl RDW Std Deviation 42.5 (35.1-43.9) fL Plt Count 180 (163-337) K/mm3 MPV 10.4 (9.4-12.3) fl Neut % (Auto) 71.3 H (34.0-67.9) % Lymph % (Auto) 17.7 L (21.8-53.1) % [place] % (Auto) 9.6 (5.3-12.2) % Eos % (Auto) 0.5 L (0.8-7.0) Baso % (Auto) 0.2 (0.1-1.2) % Neut # (Auto) 7.06 H (1.78-5.38) K/mm3 Lymph # (Auto) 1.75 (1.32-3.57) K/mm3 [place] # (Auto) 0.95 H (0.30-0.82) K/mm3 Eos # (Auto) 0.05 (0.04-0.54) K/mm3 Baso # (Auto) 0.02 (0.01-0.08) K/mm3 Manual Slide Review Not Reportable Sodium 142 (136-145) mEq/L Potassium 4.1 (3.5-5.1) mEq/L Chloride 113 H (98-107) mEq/L Carbon Dioxide 20 L (21-32) mEq/L Anion Gap 13.1 (5-15) BUN 30 H (7-18) mg/dL Creatinine 1.1 (0.7-1.3) mg/dL Est Cr Clr Drug Dosing 63.56 mL/min Estimated GFR (MDRD) > 60 (>60) mL/min BUN/Creatinine Ratio 27.3 H (14-18) Glucose 113 (83-115) mg/dL Calcium 8.9 (8.5-10.1) mg/dL Magnesium 1.9 (1.8-2.4) mg/dl C-Reactive Protein 6.0 H* (<1.0) mg/dL Med Orders - Current: Current Medications Acetaminophen (Tylenol) 650 mg PO Q4H PRN PRN Reason: Pain (Mild 1-3)/fever Hydrocodone Bitart/Acetaminophen ([place] 325-5 Mg) 1 tab PO Q4H PRN PRN Reason: Pain (moderate 4-6) Albuterol/Ipratropium (Duoneb 3.0-0.5 Mg/3 Ml) 3 ml NEB Q4H PRN PRN Reason: Shortness Of Breath/wheezing Allopurinol (Zyloprim) 100 mg PO DAILY [facility] Last Admin: 01/18/17 08:36 Dose: 100 mg Amlodipine Besylate (Norvasc) 10 mg PO DAILY [facility] Last Admin: 01/18/17 08:36 Dose: 10 mg Bisacodyl (Dulcolax) 5 mg PO DAILY PRN PRN Reason: Constipation Carvedilol (Coreg) 18.75 mg PO BID [facility] Last Admin: 01/18/17 20:14 Dose: 18.75 mg Docusate Sodium (Colace) 100 mg PO BID PRN PRN Reason: Constipation Enoxaparin Sodium (Lovenox) 40 mg SUBCUT Q24H [facility] Last Admin: 01/18/17 16:35 Dose: 40 mg Fish Oil (Fish Oil) 1 gm PO DAILY [facility] Last Admin: 01/18/17 08:35 Dose: 1 gm Flunisolide (Nasalide Nasal [place]) 0 ml NASBOTH BID [facility] Last Admin: 01/18/17 20:17 Dose: 2 spray Hydralazine HCl (Apresoline) 20 mg IVPUSH Q4H PRN PRN Reason: Hypertension Last Admin: 01/18/17 07:24 Dose: 20 mg Hydromorphone HCl (Dilaudid) 0.25 mg IVPUSH Q2H PRN PRN Reason: Pain (severe 7-10) Ibuprofen (Motrin) 600 mg PO Q8H [facility] Last Admin: 01/19/17 01:20 Dose: Not Given Losartan Potassium (Cozaar) 100 mg PO DAILY [facility] Last Admin: 01/18/17 08:35 Dose: 100 mg Magnesium Hydroxide (Milk Of Magnesia) 30 ml PO Q12H PRN PRN Reason: Constipation Magnesium Sulfate (Pharmacy To Dose - Magnesium Replacement) 0 dose .XX ASDIRECTED PRN PRN Reason: RX TO WATCH MAG LEVELS Metoprolol Tartrate (Lopressor) 5 mg IVPUSH Q6H PRN PRN Reason: Tachycardia Ondansetron HCl (Zofran Odt) 4 mg PO Q6H PRN PRN Reason: nausea, able to take PO Ondansetron HCl (Zofran) 4 mg IV Q6H PRN PRN Reason: Nausea/Vomiting [facility] Admin: 01/19/17 05:19 Dose: 40 mg Polyethylene Glycol (Miralax) 17 gm PO DAILY PRN PRN Reason: Constipation Potassium Chloride (Pharmacy To Dose - Potassium Replacement) 0 dose .XX ASDIRECTED PRN PRN Reason: RX TO WATCH K LEVELS Potassium Chloride (Klor-Con M20) 20 meq PO BID [facility] Last Admin: 01/18/17 20:14 Dose: 20 meq Senna/Docusate Sodium (Senna Plus) 1 tab PO BID PRN PRN Reason: Constipation Sodium Chloride (Saline Flush) 10 ml FLUSH ASDIRECTED PRN PRN Reason: Keep Vein Open Last Admin: 01/17/17 10:21 Dose: 10 ml Spironolactone (Aldactone) 12.5 mg PO DAILY [facility] Last Admin: 01/18/17 08:36 Dose: 12.5 mg Tamsulosin HCl (Flomax) 0.4 mg PO DAILY [facility] Last Admin: 01/18/17 08:35 Dose: 0.4 mg Temazepam (Restoril) 15 mg PO BEDTIME PRN PRN Reason: Sleep Last Admin: 01/17/17 21:40 Dose: 15 mg Vit A/Vit C/Vit E/Selen/Cu/Zn/Lutei (Icaps Mv) 1 tab PO DAILY [facility] Last Admin: 01/18/17 08:35 Dose: 1 tab Discontinued Medications Hydromorphone HCl (Dilaudid) 0.25 mg IVPUSH Q2H PRN PRN Reason: Pain (severe 7-10) Piperacillin Sod/Tazobactam (Sod 4.5 gm/ Sodium Chloride) 100 mls @ 200 mls/hr IV ONETIME ONE Stop: 01/17/17 14:10 Last Admin: 01/17/17 13:52 Dose: 200 mls/hr Sodium Chloride (Normal Saline) 1,000 mls @ 125 mls/hr IV ASDIRECTED [facility] Stop: 01/18/17 23:14 Last Admin: 01/18/17 01:47 Dose: 125 mls/hr Levofloxacin/Dextrose 750 mg/ (Premix) 150 mls @ 100 mls/hr IV Q24H [facility] Last Admin: 01/17/17 17:12 Dose: 100 mls/hr Vancomycin HCl 1 gm/ Sodium (Chloride) 250 mls @ 250 mls/hr IV Q12H [facility] Stop: 01/18/17 05:30 Last Admin: 01/18/17 03:41 Dose: 250 mls/hr Potassium Chloride 10 meq/ (Premix) 100 mls @ 100 mls/hr IV Q1H [facility] Stop: 01/17/17 22:59 Last Admin: 01/17/17 22:10 Dose: 100 mls/hr Vancomycin HCl 1 gm/ Sodium (Chloride) 250 mls @ 250 mls/hr IV Q12H [facility] Methylprednisolone Sodium Succinate (Solu-Medrol) 125 mg IVPUSH ONETIME ONE Stop: 01/17/17 10:42 Last Admin: 01/17/17 10:59 Dose: 125 mg Pantoprazole Sodium (Protonix) 40 mg PO DAILY [facility] Last Admin: 01/19/17 00:51 Dose: Not Given Pantoprazole Sodium (Protonix) 40 mg PO DAILY@0700 [facility] Last Admin: 01/18/17 08:34 Dose: 40 mg Potassium Chloride (Klor-Con M20) 40 meq PO Q4H [facility] Stop: 01/18/17 19:01 Last Admin: 01/18/17 18:10 Dose: 40 meq - Exam Quality Assessment: Reports: DVT Prophylaxis General: Reports: Alert, Oriented, Cooperative HEENT: Reports: Pupils Equal, Pupils Reactive, Mucous Membr. Moist/[place] Neck: Reports: Supple, Trachea Midline, No JVD Lungs: Reports: Clear to Auscultation, Normal Respiratory Effort Cardiovascular: Reports: Regular Rate, Regular Rhythm GI/Abdominal Exam: Normal Bowel Sounds, Soft, Non-Tender, No Distention (Male) Exam: Deferred Rectal (Males) Exam: Deferred Back Exam: Reports: Normal Inspection, Decreased Range of Motion. Denies: Paraspinal Tenderness, Vertebral Tenderness Extremities: Normal Inspection, Normal Range of Motion, No Pedal Edema, Pedal Edema ( 1+), Joint Swelling (right wrist - improving ), Other (pain over rigth wrist that is improving ) Skin: Reports: Warm, Dry, Intact Neurological: Reports: No New Focal Deficit Psy/Mental Status: Reports: Alert, Normal Affect, Normal Mood, Other (Memory impairment with occasional very mild confusion.) Physical Findings Comments:: Patient is sitting in chair eating lunch. He reports his pain is greatly improved. He is able to move all extremities and is utilizing his right wrist. He was unable to move this in the ED without extreme pain. Overall he has improved greatly. *Q Meaningful Use (DIS) - VTE *Q VTE Criteria *Q: - Stroke *Q Stroke Criteria *Q: - AMI *Q AMI Criteria *Q:
[2017-01-19] MEDS: Potassium Chloride 20 MEQ Tab.ER PO SCH (08:13)
[2017-01-19] MEDS: Fish Oil/Omega-3 Fatty Acids 1 Gm Cap PO SCH (08:13)
[2017-01-19] MEDS: Carvedilol 6.25 MG Tab PO SCH (08:15)
[2017-01-19] MEDS: Allopurinol 100 MG Tab PO SCH (08:15)
[2017-01-19] MEDS: amLODIPine 10 MG Tab PO SCH (08:17)
[2017-01-19] MEDS: Multivitamins with Minerals/Folic Acid/Lutein/Zeaxanth Tab PO SCH (08:17)
[2017-01-19] MEDS: Spironolactone 25 MG Tab PO SCH (08:18)
[2017-01-19] MEDS: Losartan 100 MG Tab PO SCH (08:18)
[2017-01-19] MEDS: Tamsulosin 0.4 MG Cap.ER PO SCH (08:18)
[2017-01-19 13:32] VITALS: BP 132/82
== END 2017-01-19 13:20 | disposition home health service (06) ==
LOC: JD.ED 09:35 → JD.MS 13:55 → UNDOADMOB 13:55 → OBSVTOIN 15:11 → INTOOBSV 15:11 → JD.MS 15:11
PROVIDERS: ADMIT Internal Medicine; ATTEND Internal Medicine
DX: M11.231 Other chondrocalcinosis, right wrist (principal); M54.6 Pain in thoracic spine; M54.2 Cervicalgia; M25.511 Pain in right shoulder; G89.29 Other chronic pain; M19.90 Unspecified osteoarthritis, unspecified site; N17.9 Acute kidney failure, unspecified; E87.6 Hypokalemia; R41.0 Disorientation, unspecified; I25.10 Atherosclerotic heart disease of native coronary artery without angina pectoris; I10 Essential (primary) hypertension; E78.00 Pure hypercholesterolemia, unspecified; K59.09 Other constipation; N40.0 Benign prostatic hyperplasia without lower urinary tract symptoms; Z79.82 Long term (current) use of aspirin; Z79.51 Long term (current) use of inhaled steroids; Z79.52 Long term (current) use of systemic steroids; Z79.899 Other long term (current) drug therapy; Z96.649 Presence of unspecified artificial hip joint; Z96.619 Presence of unspecified artificial shoulder joint
CPT/HCPCS: 36415; 72040; 72070; 72100; 73120; 80048; 80053; 80061; 83605; 83735; 84550; 84560; 85025; 85652; 86140; 86430; 87040; 96125; 96361; 96365; 96366; 96367; 96372; 96375; 97110; 97116; 97140; 97162; 97167; 97530; 99285; A9270; G0378; J0360; J1650; J1956; J2543; J2930; J3370; J3480; J7030; J7040; J7050; 99217; 99218; 99225; 99283